=== PATIENT | female | born 1945 | race Caucasian/White ===

== ENCOUNTER 2020-07-02 13:21 | Outpatient (REF) | payer MEDICARE, SELFPAY ==
--- NOTE | 2020-07-02 13:28 | MM_ITS ---
EXAMINATION: BONE DENSITOMETRY CLINICAL INDICATION: Asymptomatic menopausal state. COMPARISON: Previous BD dated 02/02/2018 and baseline BD dated 11/24/2006. TECHNIQUE: Using a [employer] DXA System (software version: 13.1) manufactured by [employer], dual-energy x-ray absorptiometry was performed of the lumbar spine and left hip. The images are of good technical quality. Summary results are attached. FINDINGS: AP SPINE L1-L4: There is dextrocurvature lumbar spine and degenerative changes which may cause overestimation of the lumbar bone mineral density. Current: BMD 1.536 g/cm2, Z-score 4.9, T-score 3.0, normal, 2.0% decrease from previous, 13.3% increase from baseline (<5% change is not significant). Prior: BMD 1.568 g/cm2. Baseline: BMD 1.356 g/cm2. LEFT FEMUR, NECK: Current: BMD 0.751 g/cm2, Z-score -0.1, T-score -2.1, osteopenia. Prior: BMD 0.772 g/cm2. Baseline: BMD 0.852 g/cm2. LEFT FEMUR, TOTAL: Current: BMD 0.786 g/cm2, Z-score 0.0, T-score -1.8, osteopenia, 4.3% decrease from previous, 14.1% decrease from baseline (<5% change is not significant). Prior: BMD 0.821 g/cm2. Baseline: BMD 0.915 g/cm2. IDENTIFIED RISK FACTORS: Menopause. HISTORY OF FRACTURE: None listed. MEDICATIONS: Vitamin D. MM/XR DEXA axial skeleton IMPRESSION: 1. DIAGNOSIS: Osteopenia based on the lowest T-score value of -2.1 in the femoral neck applying World Health Organization criteria. 2. 10-YEAR FRACTURE RISK PREDICTION, FRAX: Major osteoporotic fracture (clinical spine, forearm, hip or shoulder) 13.6%. Hip fracture 3.4%. 3. Treatment Recommendations: NOF guidelines recommend consideration for treatment in postmenopausal women and men age 50 and older presenting with the following: -A hip or vertebral (clinical or morphometric) fracture. -T-score less than or equal to -2.5 at the femoral neck or spine after appropriate evaluation to exclude secondary causes. -Low bone mass at the hip or spine and a 10-year fracture probability by FRAX of greater than or equal to 3% for hip fracture or greater than or equal to 20% for major osteoporotic fracture based on the [place] adapted WHO algorithm. 4. Other Recommendations: All treatment decisions require clinical judgment and consideration of individual patient factors, including patient preferences, comorbidities, previous drug use, risk factors not captured in the FRAX model (e.g. frailty, falls, vitamin D deficiency, increased bone turnover, interval significant decline in bone density) and possible under or overestimation of fracture risk by FRAX. Additional medical evaluation for secondary cause of low bone mineral density may be appropriate. FUTURE SCAN RECOMMENDATION: People with diagnosed cases of osteoporosis or at high risk for fracture should have regular bone mineral density tests. For patients eligible for Medicare, routine testing is allowed once every 2 years. The testing frequency can be increased to one year for patients who have rapidly progressing disease, those who are receiving or discontinuing medical therapy to restore bone mass, or have additional risk factors.
--- NOTE | 2020-07-02 13:28 | MM_ITS ---
EXAMINATION: MM SCREENING DIGITAL BREAST TOMOSYNTHESIS, BILATERAL CLINICAL INFORMATION: Screening. Asymptomatic. The lifetime risk of breast cancer based on the Tyrer-Cuzick Model is 2.5%. COMPARISON: Mammography: February 20, 2019 and studies dating back to August 15, 2012 TECHNIQUE: Digital breast tomosynthesis is performed in both the craniocaudal and mediolateral oblique views along with computer-aided detection (CAD). Synthesized 2D images are generated from the tomosynthesis. FINDINGS: There are scattered areas of fibroglandular density (ACR BI-RADS breast composition Category b). There are no significant masses, abnormal calcifications, or other abnormalities. MM/MM tomosynthesis screening BI IMPRESSION: There are no significant changes from prior study. ASSESSMENT: BI-RADS 1: Negative RECOMMENDATION: Routine annual mammography screening. This patient's information was entered into a reminder system with a target due date for their next mammogram.
== END 2020-07-02 13:22 | disposition home or self-care (01) ==
LOC: HO.MAMMO 13:21
PROVIDERS: PCP Internal Medicine; Visit Provider Internal Medicine
DX: Z13.820 Encounter for screening for osteoporosis (principal); Z78.0 Asymptomatic menopausal state; Z79.899 Other long term (current) drug therapy; Z12.31 Encounter for screening mammogram for malignant neoplasm of breast
CPT/HCPCS: 77063; 77067; 77080

== ENCOUNTER 2020-08-28 07:07 | Outpatient (REF) | payer MEDICARE, SELFPAY ==
[2020-08-28 11:22] LABS: Hematocrit 33.2 % (37-47); Hemoglobin 10.7 g/dl (12.0-16.0)
[2020-08-28 11:54] LABS: Alanine Aminotransferase 82 U/L (0-31); Albumin Level 4.3 g/dL (3.5-5.0); Alkaline Phosphatase 114 U/L (39-117); Anion Gap 15 (12-20); Aspartate Amino Transferase 77 U/L (5-31); Bilirubin Total 0.6 mg/dL (0.0-1.0); Blood Urea Nitrogen 17 mg/dL (9-16); Calcium 8.8 mg/dL (8.4-10.2); Carbon Dioxide 24 mmol/L (22-29); Chloride 100 mmol/L (96-108); Estimated Glomerular Filt Rate 53; Glucose Random 131 mg/dL (60-115); Potassium 4.2 mmol/l (3.3-5.1); Sodium 135 mmol/L (135-145); Total Protein 6.5 g/dL (6.5-8.0)
[2020-08-28 12:13] LABS: Vitamin B12 732 pg/mL (200-900)
== END 2020-08-28 07:08 | disposition home or self-care (01) ==
LOC: HO.HMGCLDS 07:07
PROVIDERS: PCP Internal Medicine; Visit Provider Internal Medicine
DX: E03.9 Hypothyroidism, unspecified (principal); E78.2 Mixed hyperlipidemia; I10 Essential (primary) hypertension; D64.9 Anemia, unspecified; E53.8 Deficiency of other specified B group vitamins; M16.11 Unilateral primary osteoarthritis, right hip
CPT/HCPCS: 36415; 80053; 82607; 85014; 85018

== ENCOUNTER 2020-09-09 10:43 | Outpatient (REF) | payer MEDICARE, SELFPAY ==
[2020-09-09 14:01] LABS: MANUAL DIFF FLAG NO
[2020-09-09 14:09] LABS: Basophils Percent Auto 0.4 % (0-2); Eosinophils Absolute Auto 0.1 X10*3/uL (0.0-0.4); Eosinophils Percent Auto 0.9 % (0-4); Hematocrit 28.2 % (37-47); Hemoglobin 9.2 g/dl (12.0-16.0); Imm Gran Abs Auto 0.09 X10*3/uL (0.00-0.03); Imm Gran Pct Auto 1.1 % (0.0-0.4); Lymphocytes Percent Auto 11.7 % (20-40); Mean Corpuscular HGB Conc 32.6 g/dl (31.0-35.0); Mean Corpuscular Hemoglobin 34.6 pg (27.0-33.0); Mean Platelet Volume 9.1 fL (9.4-12.3); Monocytes Absolute Auto 1.1 X10*3/uL (0.1-1.2); Neutrophils Percent Auto 72.9 % (45-73); Platelet Count 329 X10*3/uL (160-400); Red Blood Count 2.66 X10*6/uL (4.20-5.50); Red Cell Distribution Width 12.1 % (11.0-16.0); White Blood Count 8.2 X10*3/uL (4.8-10.8)
[2020-09-09 14:52] LABS: Anion Gap 14 (12-20); Blood Urea Nitrogen 25 mg/dL (9-16); Calcium 8.7 mg/dL (8.4-10.2); Carbon Dioxide 27 mmol/L (22-29); Chloride 98 mmol/L (96-108); Estimated Glomerular Filt Rate 52; Glucose Random 127 mg/dL (60-115); Sodium 134 mmol/L (135-145)
== END 2020-09-09 10:44 | disposition home or self-care (01) ==
LOC: HO.HMGCLNP 10:43
PROVIDERS: Visit Provider Internal Medicine
DX: E03.8 Other specified hypothyroidism (principal); E78.9 Disorder of lipoprotein metabolism, unspecified; D64.9 Anemia, unspecified; I10 Essential (primary) hypertension
CPT/HCPCS: 80048; 85025

== ENCOUNTER 2020-09-17 06:50 | Outpatient (REF) | payer MEDICARE, SELFPAY ==
[2020-09-17 11:12] LABS: MANUAL DIFF FLAG NO
[2020-09-17 11:16] LABS: Basophils Absolute Auto 0.1 X10*3/uL (0.0-0.2); Basophils Percent Auto 0.5 % (0-2); Eosinophils Absolute Auto 0.3 X10*3/uL (0.0-0.4); Hematocrit 29.8 % (37-47); Hemoglobin 9.7 g/dl (12.0-16.0); Imm Gran Pct Auto 1.1 % (0.0-0.4); Lymphocytes Absolute Auto 1.1 X10*3/uL (1.2-4.9); Lymphocytes Percent Auto 11.5 % (20-40); Mean Corpuscular HGB Conc 32.6 g/dl (31.0-35.0); Mean Corpuscular Hemoglobin 34.3 pg (27.0-33.0); Mean Corpuscular Volume 105.3 fL (80-98); Mean Platelet Volume 8.7 fL (9.4-12.3); Monocytes Absolute Auto 0.6 X10*3/uL (0.1-1.2); Monocytes Percent Auto 6.1 % (2-11); Neutrophils Absolute Auto 7.3 X10*3/uL (2.0-8.3); Neutrophils Percent Auto 77.8 % (45-73); Platelet Count 528 X10*3/uL (160-400); Red Blood Count 2.83 X10*6/uL (4.20-5.50); Red Cell Distribution Width 12.8 % (11.0-16.0); White Blood Count 9.4 X10*3/uL (4.8-10.8)
[2020-09-17 11:41] LABS: Anion Gap 15 (12-20); Blood Urea Nitrogen 12 mg/dL (9-16); Calcium 9.5 mg/dL (8.4-10.2); Carbon Dioxide 28 mmol/L (22-29); Chloride 97 mmol/L (96-108); Estimated Glomerular Filt Rate > 60; Glucose Random 87 mg/dL (60-115); Potassium 4.9 mmol/l (3.3-5.1); Sodium 135 mmol/L (135-145)
== END 2020-09-17 06:51 | disposition home or self-care (01) ==
LOC: HO.LHD 06:50
PROVIDERS: Visit Provider Internal Medicine
DX: E03.8 Other specified hypothyroidism (principal); E78.9 Disorder of lipoprotein metabolism, unspecified; D64.9 Anemia, unspecified; I10 Essential (primary) hypertension
CPT/HCPCS: 36415; 80048; 85025

== ENCOUNTER 2020-10-22 10:00 | Outpatient (RCR) | payer MEDICARE, SELFPAY | END 2020-10-22 12:24 | disposition other institution (70) | LOC: HO.PTCHIC 10:00 | PROVIDERS: PCP Internal Medicine; Visit Provider Orthopaedic Surgery | DX: Z98.890 Other specified postprocedural states (principal) | CPT/HCPCS: 97110; 97112; 97162; 97530 ==

== ENCOUNTER 2020-12-16 09:11 | Outpatient (REF) | payer MEDICARE, SELFPAY ==
[2020-12-16 11:17] LABS: MANUAL DIFF FLAG NO
[2020-12-16 11:42] LABS: Basophils Percent Auto 0.3 % (0-2); Eosinophils Absolute Auto 0.4 X10*3/uL (0.0-0.4); Eosinophils Percent Auto 5.8 % (0-4); Hematocrit 36.1 % (37-47); Hemoglobin 12.1 g/dl (12.0-16.0); Imm Gran Abs Auto 0.02 X10*3/uL (0.00-0.03); Imm Gran Pct Auto 0.3 % (0.0-0.4); Lymphocytes Percent Auto 13.1 % (20-40); Mean Corpuscular HGB Conc 33.5 g/dl (31.0-35.0); Mean Corpuscular Hemoglobin 33.2 pg (27.0-33.0); Mean Corpuscular Volume 98.9 fL (80-98); Mean Platelet Volume 9.1 fL (9.4-12.3); Monocytes Absolute Auto 0.8 X10*3/uL (0.1-1.2); Monocytes Percent Auto 10.4 % (2-11); Neutrophils Absolute Auto 5.4 X10*3/uL (2.0-8.3); Neutrophils Percent Auto 70.1 % (45-73); Platelet Count 304 X10*3/uL (160-400); Red Blood Count 3.65 X10*6/uL (4.20-5.50); Red Cell Distribution Width 13.2 % (11.0-16.0); White Blood Count 7.6 X10*3/uL (4.8-10.8)
== END 2020-12-16 09:12 | disposition home or self-care (01) ==
LOC: HO.HMGCLDS 09:11
PROVIDERS: PCP Internal Medicine; Visit Provider Internal Medicine
DX: D64.9 Anemia, unspecified (principal)
CPT/HCPCS: 36415; 85025

== ENCOUNTER 2021-05-29 06:03 | Outpatient (REF) | payer MEDICARE, SELFPAY ==
[2021-05-29 13:07] LABS: Alanine Aminotransferase 22 U/L (0-31); Albumin Level 4.2 g/dL (3.5-5.0); Alkaline Phosphatase 73 U/L (39-117); Anion Gap 13 (12-20); Aspartate Amino Transferase 27 U/L (5-31); Bilirubin Total 0.7 mg/dL (0.0-1.0); Blood Urea Nitrogen 17 mg/dL (9-16); Calcium 9.7 mg/dL (8.4-10.2); Carbon Dioxide 26 mmol/L (22-29); Chloride 102 mmol/L (96-108); Cholesterol 165 mg/dL; Estimated Glomerular Filt Rate 51; Glucose Fasting 94 mg/dL (60-99); HDL Cholesterol 74 mg/dL; LDL Cholesterol Calculated 73 mg/dl; Potassium 4.9 mmol/L (3.3-5.1); Sodium 136 mmol/L (135-145); Total Protein 6.4 g/dL (6.5-8.0); Triglycerides 94 mg/dL
[2021-05-29 13:09] LABS: TSH reflex Free T4 2.02 uIU/mL (0.32-4.0)
[2021-05-29 13:26] LABS: Vitamin B12 271 pg/mL (200-900)
[2021-06-04 15:01] LABS: Vitamin D 25-OH, D2 <4 ng/mL; Vitamin D 25-OH, D3 65 ng/mL; Vitamin D 25-OH, Total 65 ng/mL (30-100)
== END 2021-05-29 06:04 | disposition home or self-care (01) ==
LOC: HO.HMGCLDS 06:03
PROVIDERS: PCP Internal Medicine; Visit Provider Internal Medicine
DX: Z00.01 Encounter for general adult medical examination with abnormal findings (principal); R26.89 Other abnormalities of gait and mobility; I10 Essential (primary) hypertension; R73.01 Impaired fasting glucose; E78.9 Disorder of lipoprotein metabolism, unspecified; E55.9 Vitamin D deficiency, unspecified; M85.88 Other specified disorders of bone density and structure, other site; E53.8 Deficiency of other specified B group vitamins
CPT/HCPCS: 36415; 80053; 80061; 82306; 82607; 84443

== ENCOUNTER 2021-07-14 09:01 | Outpatient (REF) | payer MEDICARE, SELFPAY ==
--- NOTE | ~2021-07-14 | MM_ITS ---
EXAMINATION: MM SCREENING DIGITAL BREAST TOMOSYNTHESIS, BILATERAL CLINICAL INFORMATION: Screening. Asymptomatic. The lifetime risk of breast cancer based on the Tyrer-Cuzick Model is 3%. COMPARISON: Mammography: 07/02/2020, 02/20/2019, 02/02/2018 TECHNIQUE: Digital breast tomosynthesis is performed in both the craniocaudal and mediolateral oblique views along with computer-aided detection (CAD). Synthesized 2D images are generated from the tomosynthesis. FINDINGS: There are scattered areas of fibroglandular density (ACR BI-RADS breast composition Category b). There are no significant masses, abnormal calcifications, or other abnormalities. There are several dermal lesions overlying the outer left breast. Parenchymal pattern is similar to prior studies. No significant changes. MM/MM tomosynthesis screening BI IMPRESSION: No mammographic evidence of malignancy. ASSESSMENT: BI-RADS 2: Benign RECOMMENDATION: Routine annual mammography screening. This patient's information was entered into a reminder system with a target due date for their next mammogram.
== END 2021-07-14 09:02 | disposition home or self-care (01) ==
LOC: HO.MAMMO 09:01
PROVIDERS: Visit Provider Internal Medicine
DX: Z12.31 Encounter for screening mammogram for malignant neoplasm of breast (principal)
CPT/HCPCS: 77063; 77067

== ENCOUNTER 2021-09-02 06:10 | Outpatient (REF) | payer MEDICARE, SELFPAY ==
[2021-09-02 12:00] LABS: Alanine Aminotransferase 30 U/L (0-31); Albumin Level 4.5 g/dL (3.5-5.0); Alkaline Phosphatase 68 U/L (39-117); Anion Gap 15 (12-20); Aspartate Amino Transferase 42 U/L (5-31); Bilirubin Total 0.8 mg/dL (0.0-1.0); Blood Urea Nitrogen 17 mg/dL (9-16); Carbon Dioxide 25 mmol/L (22-29); Chloride 98 mmol/L (96-108); Estimated Glomerular Filt Rate 49; Glucose Random 92 mg/dL (60-115); Potassium 4.7 mmol/L (3.3-5.1); Sodium 133 mmol/L (135-145); Total Protein 6.9 g/dL (6.5-8.0)
== END 2021-09-02 06:11 | disposition home or self-care (01) ==
LOC: HO.HMGCLDS 06:10
PROVIDERS: PCP Internal Medicine; Visit Provider Internal Medicine
DX: E03.8 Other specified hypothyroidism (principal); E78.9 Disorder of lipoprotein metabolism, unspecified; I10 Essential (primary) hypertension; N28.9 Disorder of kidney and ureter, unspecified
CPT/HCPCS: 36415; 80053

== ENCOUNTER 2021-10-14 08:00 | Outpatient (RCR) | payer MEDICARE, SELFPAY ==
--- NOTE | 2021-09-14 15:13 | MHC.PT.EP ---
[facility] [place] Office [place] Office [place] Office [address] Peyman Stephens [address] [phone] F: [phone] F: [phone] F: [phone] F: [phone] Physical Therapy Plan of Care Date of Evaluation: Date of Surgery: Diagnosis: This is a 76 yo female presenting to skilled PT with a script for balance and leg weakness. Assessment: This is a 76 yo female presenting to skilled PT with a script for balance and leg weakness. Patient comes in today reporting lack of strength and limitations in balance. She has had PT in the past for hip pain and this was helpful. She lives in a one floor condo without stairs but feels like she has a hard time when she encounters stairs or curbs with and without hand rail assist. She has not been back to the gym due to covid but rides her stationary bike and recently looked up leg strengthening exercises as well as core strengthening. No recent falls. No AD but has a cane as needed. Assessment reveals pain that ranges up to a 1/10 at the worst and patient is more interested in strengthening and balance. She demos decreased hip and lumbar ROM (mainly flexors and extension), decreased glut and hip strength, impaired gait pattern with WBOS, lateral sway, Trendelenburg pattern and decreased heel strike, impaired balance tolerance with DGI and Revloc scores making her a falls risk as well as gross functional decline with walking, stairs and squatting. She is a good candidate for skilled PT 2x/wk for 5wks. She is very motivated and demos good I with HEP in the past. Frequency and Duration: The patient will be seen 2x/wk for 5wks Short Term Goals: I in HEP and proper safety techniques at home Demo proper squatting techniques without cues from PT or LOB as well as proper weight distribution Snf Goals: Improve balance scores by at least 20/24, no longer a falls risk category Improve hip/glut strength to at least 4/5 grossly Demo stairs with reciprocal gait and use of single UE assist Treatment Plan: Modalities to reduce pain, spasms and effusion. Manual therapy to restore motion and function. Therapeutic exercise to improve strength and flexibility. Neuromuscular re-education for posture and balance. Therapeutic activities to return to functional activities of daily living. Electronically signed by: Brittany Romero PT Please sign and return to therapist. Thank you for your referral.
--- NOTE | 2021-10-14 08:45 | MHC.PT.DC ---
[facility] [place] Office [place] Office [place] Office [address] Peyman Stephens [address] [phone] F: [phone] F: [phone] F: [phone] F: [phone] Physical Therapy Discharge Report Diagnosis: This is a 76 yo female presenting to skilled PT with a script for balance and leg weakness. Date of Surgery: Date of Evaluation: 09/14/21 Date of Discharge: 10/14/21 Treatments to Date: 9 Cancellations to Date: 0 No Shows to Date: 0 Discharge Status: Achieved Goals Improved Function Independent with HEP Discharge Summary: Mary Lou is feeling ready for DC. She has a thorough HEP to continue on her own. She also reports that she will be doing chair exercises at home and make more of an effort to walk when the weather improves. The patient demos WFL ROM and improving BLE strength. She no longer required rest breaks, increased weighted ther-ex and demo's an improvement in general endurance. Electronically signed by: Brittany Romero PT Please sign and return to therapist. Thank you for your referral.
== END 2021-10-14 08:46 | disposition home or self-care (01) ==
LOC: HO.PTCHIC 08:00
PROVIDERS: PCP Internal Medicine; Visit Provider Internal Medicine
DX: R29.898 Other symptoms and signs involving the musculoskeletal system (principal)
CPT/HCPCS: 97110; 97112; 97162

== ENCOUNTER 2022-03-02 11:25 | Outpatient (REF) | payer MEDICARE, SELFPAY ==
[2022-03-02 13:56] LABS: MANUAL DIFF FLAG NO
[2022-03-02 14:23] LABS: Basophils Percent Auto 0.4 % (0-2); Eosinophils Absolute Auto 0.1 X10*3/uL (0.0-0.4); Eosinophils Percent Auto 1.1 % (0-4); Hematocrit 33.1 % (37.0-47.0); Imm Gran Abs Auto 0.05 X10*3/uL (0.00-0.03); Lymphocytes Percent Auto 18.4 % (20-40); Mean Corpuscular HGB Conc 33.2 g/dl (31.0-35.0); Mean Corpuscular Hemoglobin 33.1 pg (27.0-33.0); Mean Corpuscular Volume 99.7 fL (80.0-98.0); Mean Platelet Volume 9.3 fL (9.4-12.3); Monocytes Absolute Auto 0.7 X10*3/uL (0.1-1.2); Neutrophils Absolute Auto 3.5 x10*3/uL (2.0-8.3); Neutrophils Percent Auto 66.1 % (45-73); Platelet Count 290 X10*3/uL (160-400); Red Blood Count 3.32 X10*6/uL (4.20-5.50); Red Cell Distribution Width 12.2 % (11.0-16.0); White Blood Count 5.2 X10*3/uL (4.8-10.8)
[2022-03-02 14:31] LABS: Alanine Aminotransferase 18 U/L (0-31); Albumin Level 4.5 g/dL (3.5-5.0); Alkaline Phosphatase 76 U/L (39-117); Anion Gap 13 (12-20); Aspartate Amino Transferase 31 U/L (5-31); Bilirubin Total 0.5 mg/dL (0.0-1.0); Blood Urea Nitrogen 20 mg/dL (9-16); Calcium 9.2 mg/dL (8.4-10.2); Carbon Dioxide 25 mmol/L (22-29); Chloride 97 mmol/L (96-108); Estimated Glomerular Filt Rate 48; Glucose Random 118 mg/dL (60-115); Potassium 4.1 mmol/L (3.3-5.1); Sodium 131 mmol/L (135-145); Total Protein 6.8 g/dL (6.5-8.0)
[2022-03-02 14:55] LABS: TSH reflex Free T4 1.31 uIU/mL (0.32-4.0)
[2022-03-02 15:18] LABS: Vitamin B12 < 146 pg/mL (200-900)
[2022-03-03 21:47] LABS: LDL Cholesterol Direct 98 mg/dL (<100)
[2022-03-07 14:13] LABS: Vitamin D 25-OH, D2 <4 ng/mL; Vitamin D 25-OH, D3 55 ng/mL; Vitamin D 25-OH, Total 55 ng/mL (30-100)
== END 2022-03-02 11:26 | disposition home or self-care (01) ==
LOC: HO.HMGCLDS 11:25
PROVIDERS: PCP Internal Medicine; Visit Provider Internal Medicine
DX: E03.8 Other specified hypothyroidism (principal); E53.8 Deficiency of other specified B group vitamins; E55.9 Vitamin D deficiency, unspecified; E78.9 Disorder of lipoprotein metabolism, unspecified; I10 Essential (primary) hypertension; N28.9 Disorder of kidney and ureter, unspecified; R29.898 Other symptoms and signs involving the musculoskeletal system
CPT/HCPCS: 36415; 80053; 82306; 82607; 83721; 84443; 85025

== ENCOUNTER 2022-07-16 08:44 | Outpatient (REF) | payer MEDICARE, SELFPAY ==
--- NOTE | ~2022-07-16 | MM_ITS ---
EXAMINATION: MM SCREENING DIGITAL BREAST TOMOSYNTHESIS, BILATERAL CLINICAL INFORMATION: Screening. Asymptomatic. The lifetime risk of breast cancer based on the Tyrer-Cuzick Model is 2%. COMPARISON: Mammography: 07/14/2021, 07/02/2020, 02/20/2019 TECHNIQUE: Digital breast tomosynthesis is performed in both the craniocaudal and mediolateral oblique views along with computer-aided detection (CAD). Synthesized 2D images are generated from the tomosynthesis. FINDINGS: There are scattered areas of fibroglandular density (ACR BI-RADS breast composition Category b). There are no significant masses, abnormal calcifications, or other abnormalities. No significant changes in the parenchymal pattern. Several dermal lesions are again noted overlying outer left breast and there are scattered bilateral vascular calcifications again seen. MM/MM tomosynthesis screening BI IMPRESSION: No mammographic evidence of malignancy. ASSESSMENT: BI-RADS 2: Benign RECOMMENDATION: Routine annual mammography screening. This patient's information was entered into a reminder system with a target due date for their next mammogram.
== END 2022-07-16 08:45 | disposition home or self-care (01) ==
LOC: HO.MAMMO 08:44
PROVIDERS: PCP Internal Medicine; Visit Provider Internal Medicine
DX: Z12.31 Encounter for screening mammogram for malignant neoplasm of breast (principal)
CPT/HCPCS: 77063; 77067

== ENCOUNTER 2022-08-14 06:40 | Outpatient (REF) | payer MEDICARE, SELFPAY ==
[2022-08-14 10:58] LABS: MANUAL DIFF FLAG NO
[2022-08-14 11:06] LABS: Basophils Percent Auto 0.5 % (0-2); Eosinophils Absolute Auto 0.1 X10*3/uL (0.0-0.4); Eosinophils Percent Auto 1.8 % (0-4); Hematocrit 35.5 % (37.0-47.0); Hemoglobin 11.9 g/dl (12.0-16.0); Imm Gran Abs Auto 0.04 X10*3/uL (0.00-0.03); Imm Gran Pct Auto 0.7 % (0.0-0.4); Lymphocytes Absolute Auto 1.6 X10*3/uL (1.2-4.9); Lymphocytes Percent Auto 26.5 % (20-40); Mean Corpuscular HGB Conc 33.5 g/dl (31.0-35.0); Mean Corpuscular Hemoglobin 33.7 pg (27.0-33.0); Mean Corpuscular Volume 100.6 fL (80.0-98.0); Mean Platelet Volume 9.4 fL (9.4-12.3); Monocytes Absolute Auto 0.7 X10*3/uL (0.1-1.2); Monocytes Percent Auto 12.1 % (2-11); Neutrophils Absolute Auto 3.5 x10*3/uL (2.0-8.3); Neutrophils Percent Auto 58.4 % (45-73); Platelet Count 303 X10*3/uL (160-400); Red Blood Count 3.53 X10*6/uL (4.20-5.50); Red Cell Distribution Width 12.5 % (11.0-16.0)
[2022-08-14 11:19] LABS: Estimated Average Glucose 97 mg/dL
[2022-08-14 11:41] LABS: Alanine Aminotransferase 18 U/L (0-31); Albumin Level 4.2 g/dL (3.5-5.0); Alkaline Phosphatase 79 U/L (39-117); Anion Gap 16 (12-20); Aspartate Amino Transferase 26 U/L (5-31); Bilirubin Total 0.9 mg/dL (0.0-1.0); Blood Urea Nitrogen 17 mg/dL (9-16); Calcium 9.7 mg/dL (8.4-10.2); Carbon Dioxide 23 mmol/L (22-29); Chloride 98 mmol/L (96-108); Cholesterol 210 mg/dL; Estimated Glomerular Filt Rate 44; Glucose Fasting 101 mg/dL (60-99); HDL Cholesterol 85 mg/dL; LDL Cholesterol Calculated 107 mg/dl; Potassium 4.8 mmol/L (3.3-5.1); Sodium 132 mmol/L (135-145); TSH reflex Free T4 0.36 uIU/mL (0.32-4.0); Total Protein 6.7 g/dL (6.5-8.0); Triglycerides 91 mg/dL
[2022-08-14 11:48] LABS: Vitamin B12 1261 pg/mL (200-900)
[2022-08-19 12:33] LABS: Vitamin D 25-OH, D2 <4 ng/mL; Vitamin D 25-OH, D3 36 ng/mL; Vitamin D 25-OH, Total 36 ng/mL (30-100)
== END 2022-08-14 06:41 | disposition home or self-care (01) ==
LOC: HO.HMGCLDS 06:40
PROVIDERS: PCP Internal Medicine; Visit Provider Internal Medicine
DX: D53.9 Nutritional anemia, unspecified (principal); E03.8 Other specified hypothyroidism; E78.9 Disorder of lipoprotein metabolism, unspecified; I10 Essential (primary) hypertension; R73.01 Impaired fasting glucose; E53.8 Deficiency of other specified B group vitamins; E55.9 Vitamin D deficiency, unspecified
CPT/HCPCS: 36415; 80053; 80061; 82306; 82607; 83036; 84443; 85025

== ENCOUNTER 2022-12-03 09:53 | Outpatient (REF) | payer MEDICARE, SELFPAY ==
--- NOTE | ~2022-12-03 | XR_ITS ---
EXAMINATION: XR KNEE, RIGHT CLINICAL INFORMATION: Pain. COMPARISON: Radiographs dated 04/24/2013. TECHNIQUE: AP and lateral views of the right knee. FINDINGS: There is mild bony demineralization. The lateral and medial joint space compartments are well-maintained. The patellofemoral compartment is well-maintained and shows tiny upper and lower articular surface osteophytes. No fracture, dislocation or joint effusion is seen. No foreign body is noted. XR/XR knee RT 2V IMPRESSION: There is slight osteoarthritic change of the right patellofemoral compartment. No fracture, dislocation or joint effusion is seen.
--- NOTE | ~2022-12-03 | XR_ITS ---
EXAMINATION: XR SHOULDER, LEFT CLINICAL INFORMATION: Pain. COMPARISON: None available. TECHNIQUE: AP external rotation, Grashey, scapular Y, and axillary views of the left shoulder. FINDINGS: Bony alignment and mineralization are normal. The glenohumeral joint is intact and shows mild peripheral osteophyte formation. The acromioclavicular and coracoclavicular intervals are normal. No fracture or dislocation is seen. There is a small distal acromial undersurface osteophyte. There is slight cortical irregularity of the greater tuberosity of the proximal left humerus. There is mild left axillary soft tissue calcification, possibly myositis ossificans. No foreign body is noted. There is no left pneumothorax. XR/XR shoulder LT min 2V IMPRESSION: 1. There is mild osteoarthritic change of the left glenohumeral joint. 2. Findings suggest possible mild left rotator cuff impingement.
[2022-12-03 11:59] LABS: Hematocrit 32.9 % (37.0-47.0)
[2022-12-03 12:04] LABS: Estimated Average Glucose 103 mg/dL; Hemoglobin A1c % 5.2 %
[2022-12-03 12:23] LABS: Alanine Aminotransferase 17 U/L (0-31); Albumin Level 4.1 g/dL (3.5-5.0); Alkaline Phosphatase 84 U/L (39-117); Anion Gap 15 (12-20); Aspartate Amino Transferase 29 U/L (5-31); Bilirubin Total 0.6 mg/dL (0.0-1.0); Blood Urea Nitrogen 16 mg/dL (9-16); Calcium 9.5 mg/dL (8.4-10.2); Carbon Dioxide 24 mmol/L (22-29); Chloride 97 mmol/L (96-108); Estimated Glomerular Filt Rate 42; Glucose Random 108 mg/dL (60-115); Potassium 5.6 mmol/L (3.3-5.1); Sodium 130 mmol/L (135-145); Total Protein 6.5 g/dL (6.5-8.0)
[2022-12-03 12:48] LABS: TSH reflex Free T4 0.24 uIU/mL (0.32-4.0); Vitamin B12 1726 pg/mL (200-900)
[2022-12-03 13:59] LABS: Free T4 (Free Thyroxine) 1.25 ng/dL (0.71-1.85)
[2022-12-04 17:13] LABS: LDL Cholesterol Direct 59 mg/dL (<100)
== END 2022-12-03 09:54 | disposition home or self-care (01) ==
LOC: HO.HMGCLDS 09:53
PROVIDERS: PCP Internal Medicine; Visit Provider Internal Medicine
DX: E03.8 Other specified hypothyroidism (principal); E53.8 Deficiency of other specified B group vitamins; E78.9 Disorder of lipoprotein metabolism, unspecified; I10 Essential (primary) hypertension; N28.9 Disorder of kidney and ureter, unspecified; D64.9 Anemia, unspecified; R73.01 Impaired fasting glucose; M25.512 Pain in left shoulder; M25.562 Pain in left knee
CPT/HCPCS: 36415; 73030; 73560; 80053; 82607; 83036; 83721; 84439; 84443; 85014; 85018

== ENCOUNTER 2022-12-06 07:07 | Outpatient (REF) | payer MEDICARE, SELFPAY ==
[2022-12-06 11:34] LABS: Anion Gap 15 (12-20); Blood Urea Nitrogen 14 mg/dL (9-16); Calcium 8.7 mg/dL (8.4-10.2); Carbon Dioxide 25 mmol/L (22-29); Chloride 99 mmol/L (96-108); Estimated Glomerular Filt Rate 51; Glucose Random 83 mg/dL (60-115); Potassium 3.8 mmol/L (3.3-5.1); Sodium 135 mmol/L (135-145)
== END 2022-12-06 07:08 | disposition home or self-care (01) ==
LOC: HO.HMGCLDS 07:07
PROVIDERS: PCP Internal Medicine; Visit Provider Internal Medicine
DX: E87.5 Hyperkalemia (principal)
CPT/HCPCS: 36415; 80048

== ENCOUNTER → 2023-01-31 13:58 | Outpatient (BNVA) | payer MEDICARE, SELFPAY | PROVIDERS: PCP Internal Medicine; Visit Provider Physician Assistant | DX: M75.102 Unspecified rotator cuff tear or rupture of left shoulder, not specified as traumatic (principal) | CPT/HCPCS: 99202; J1040 ==

== ENCOUNTER 2023-01-31 14:50 | Emergency (ER) | payer MEDICARE, SELFPAY ==
--- NOTE | ~2023-01-31 | CT_ITS ---
EXAMINATION: CT HEAD WITHOUT CONTRAST CT CERVICAL SPINE WITHOUT CONTRAST CLINICAL INFORMATION: Head strike. Syncope. Fall. COMPARISON: CT head 02/11/2014 TECHNIQUE: Imaging was performed from the skull base to vertex without intravenous administration of contrast. In addition, helical noncontrast CT imaging was acquired through the cervical spine and source images were reviewed along with axial reconstructions and sagittal and coronal MPRs. [This CT examination was performed using dose optimization techniques as appropriate, variously including the following: *Automated exposure control *Adjustment of mA and/or kV according to patient size (this includes techniques or standardized protocols for targeted exams where dose is matched to indication/reason for exam; i.e. extremities or head) *Use of iterative reconstruction technique] DLP: 988 mGy-cm FINDINGS: HEAD: No intracranial mass, hemorrhage, or midline shift is visualized. There is generalized global volume loss. There is moderate prominence of the ventricles and the sulci . There is mild hypodensity of the periventricular white matter due to chronic small vessel ischemic disease. There are vascular calcifications of the internal carotid arteries bilaterally. No extra-axial collections are identified. The paranasal sinuses and mastoid air cells are well aerated. CERVICAL SPINE: There is no evidence of acute cervical spine fracture. Vertebral bodies remain normal in height. There is multilevel degenerative spondylosis of the cervical spine with disc height narrowing and endplate spurs and facet joint arthrosis. There is a anterolisthesis measuring about 3 mm C3 on C4 and 2 mm at C4 on C5. This is due to marked degenerative change of the facet joint. There is fusion of the C4-C5 facet joints bilateral. Severe disc height narrowing at C5-C6 and C6-C7 with moderate facet joint arthrosis at these disc levels. Vascular calcification of the carotid arteries bilaterally. Limited assessment of the lung apices is unremarkable. CT/CT cervical spine wo IV con IMPRESSION: 1. No acute intracranial pathology. 2. No CT evidence of acute cervical spine fracture or traumatic subluxation
[2023-01-31 15:42] VITALS: BP 190/91; PULSE 85; RESP 18; TEMP 35.6; O2SAT 100; BMI 24.9
--- NOTE | 2023-01-31 15:46 | ED.FALL ---
HPI - Fall General Chief Complaint: Fall Stated Complaint: fell lac over eye r knee inj mouth inj Time Seen by Provider: 01/31/23 15:40 Source: patient Mode of arrival: wheelchair Limitations: no limitations History of Present Illness HPI Narrative: 77 yo female with history of HTN, HLD, hypothyroidism here after fall. Per patient she was at the orthopedic office getting a cortisone injection in her shoulder. She was walking out when she fell forward with +LOC. Patient believes she lost consciousness before she hit her head but she denies any pre fall symptoms of dizziness, headache, chest pain, palpitations. She now has a mild headache and abrasions to her right knee, lacerations to forehead and upper lip. Tetanus is UTD. Related Data Home Medications Medication Instructions Recorded Confirmed aspirin 81 mg tablet,delayed 81 mg PO DAILY 09/12/20 12/03/22 release (Adult Aspirin Regimen) omega-3 fatty acids 1,000 mg 1,000 mg PO DAILY 09/12/20 12/03/22 capsule (Fish Oil Concentrate) calcium 600 mg capsule 1,200 mg PO DAILY 10/20/20 12/03/22 ascorbic acid (vitamin C) 500 mg 500 mg PO DAILY 11/18/20 12/03/22 tablet flaxseed oil 1,000 mg capsule 1,000 mg PO DAILY 11/18/20 12/03/22 Previous Rx's Medication Instructions Recorded levothyroxine 88 mcg tablet 88 mcg PO QAM #90 tabs 12/03/22 sodium polystyrene sulfonate 15 15 g (60 mL) PO DAILY 3 days #180 12/03/22 gram/60 mL oral suspension mL atenolol 25 mg tablet 25 mg PO DAILY 90 days #90 tabs 01/21/23 losartan 100 1 tab PO DAILY #90 tabs 01/31/23 mg-hydrochlorothiazide 25 mg tablet simvastatin 20 mg tablet 20 mg PO QPM 90 days #90 tabs 01/31/23 Allergies Allergy/AdvReac Type Severity Reaction Status Date / Time No Known Allergies Allergy Verified 01/31/23 14:10 Review of Systems Review of Systems: Yes all other systems are reviewed and are negative Constitutional: Constitutional: Reports no additional constitutional complaints, Denies body ache(s), Denies chills, Denies fever(s), Reports headache(s) and Denies weakness Eyes: Eyes: Reports no additional eye complaints and Denies change in vision ENT: Reports system reviewed and no additional complaints, except as documented, Denies dizziness, Reports headache(s), Denies nasal congestion, Denies nasal discharge and Denies neck pain Cardiovascular: Cardiovascular: Reports no additional cardiovascular complaints, Denies chest pain, Denies leg edema and Denies dyspnea Respiratory: Respiratory: Reports no additional respiratory complaints, Denies cough and Denies dyspnea Gastrointestinal: Gastrointestinal: Reports no additional gastrointestinal complaints, Denies abdominal pain, Denies diarrhea, Denies nausea and Denies vomiting Genitourinary: Genitourinary: Reports no additional female genitourinary complaints and Denies urinary incontinence Musculoskeletal: Musculoskeletal: Reports no additional musculoskeletal complaints, Denies back pain, Denies arthralgias, Denies joint swelling, Denies neck pain, Denies numbness and Denies tingling Integumentary/Breasts: Skin/Breast: Reports system reviewed and no additional complaints, except as docu, Denies rash and Reports wounds Neurologic: Reports system reviewed and no additional complaints, except as documented, Denies Abnormal speech present, Denies dizziness, Reports headache(s), Denies numbness, Denies tingling and Denies weakness PMFSH Past Medical History Attestation statement: The following information was validated with the patient. Source: old records reviewed and nursing notes reviewed Medical History HTN (hypertension) Hypothyroid Surgical History History of right hip replacement Hx of carpal tunnel repair Hx of cholecystectomy Hx of endarterectomy Hx of tonsillectomy Hx of tubal ligation Family History Family History Family/Other Melanoma Brother Prostate cancer Maternal Grandmother Diabetes CHF (congestive heart failure) Mother CHF (congestive heart failure) Family/Other Ulcerative colitis Social History Social History [facility] Alcohol intake: current Alcohol intake frequency: holidays/special occasions only Alcohol type: wine Patient Tobacco Use Status: Never used Tobacco Smoked in Last 30 Days: No e-Cigarette/Vaping Use: Never Used Second Hand Smoke Exposure: No Advance Directives: No Advance Directives Information Provided: Yes service: No Current occupational status: retired 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 3cm laceration Ears: hearing grossly normal bilaterally General nose exam: Normal external nose present Face and sinus: Yes normal facial exam Mouth: Normal oral and palatal mucosa present Mouth/tongue images: 1. under the lip there is a 1cm lac Throat: Yes posterior oropharynx normal Eyes: General: appearance normal, both eyes and all related structures Pupils: Equal, round and reactive pupils present Neck: Neck: Yes normal visual inspection, Yes full ROM, Yes no lymphadenopathy and Yes no meningeal signs Chest: Chest palpation & inspection: normal inspection of the chest Resp: Effort & Inspection: normal respiratory effort Auscultation: clear to auscultation bilaterally Cardio: Rate: regular rate Rhythm: regular rhythm Peripheral pulses: Peripheral pulses 2+ throughout GI: Inspection: Yes normal to inspection Palpation (GI): Soft to palpation and nontender Auscultation: normal bowel sounds Back/Spine/Pelvis: Thoracic/Lumbar Spine: thoracic and lumbar spine normal to inspection Skin: General skin exam: no rashes or lesions noted Neuro: General: patient oriented x3, moves all extremities, no meningeal signs, no focal motor deficits and normal sensation to monofilament Cranial nerves: Yes CN's II-XII intact bilaterally, Yes Equal, round and reactive pupils present, Yes Bilaterally intact EOM present, Yes Nystagmus not present, Yes Normal facial strength present and Yes Midline tongue present Cognition (Neuro): normal cognition Speech: No Abnormal speech present Gait exam (Neuro): Normal gait present Motor exam (neuro): 5/5 motor strength present throughout Sensory Exam: Normal double simultaneous stimulation for sensation Extrem: General: Yes normal to inspection Elbow/forearm/wrist images: 1. +abrasion with skin tear, FROM of the right knee with no difficulty Course Course Course Narrative: asymptomatic HTN Reevaluation(s) Reevaluation #1: 1900-sign out to betzaida tapia pending ct results Reevaluation #2: CT scan images negative for any fractures or brain bleed. Patient blood pressure over 220. Patient informed she will need to wait in the ED for blood pressure to be controlled probably received medications to make sure no stroke occurred. Patient states she did not take her meds and would like to be discharged. Patient educated on risk of stroke, heart attack, kidney injury or even and patient still wants to sign out against medical advice and would take her medications and follow her blood pressure. Procedures Laceration Laceration 1: Site: face Side (If applicable): left Size (cm): 3 Description: linear Depth: simple, single layer Local Anesthetic: lidocaine 1% Amount of anesthesia used (mL): 2 Pre-repair: wound explored and irrigated extensively Skin layer closed with: other (prolene) Size (cm): 6-0 Number of sutures: 3 Technique: simple, interrupted Medical Decision Making Medical Decision Making [facility] Narrative: 77 yo female here with facial laceration, lip laceration and abrasions to right knee s/p fall after receiving a cortisone injection. ?syncopal fall but patient is unsure of details. May be vasovagal d/t painful procedure prior to episode. Will obtain labs, EKG, orthostatics, Ct head/cervical spine Differential Diagnosis Differential Diagnoses: The differential diagnosis associated with the presentation includes Vasovagal syncope Low concern for ACS with normal EKG and troponin Low concern for PE with no hypoxia, no tachypnea, no tachycardia and no clinical findings concerning for DVT no headache to suggest subarachnoid hemorrhage Admission/Observation Consideration of admission/observation: Escalation of care including admission/observation considered most consistent with vasovagal syncope. [place] syncope risk score -1 Lab Data [facility] Lab Attestation statement: I reviewed the patient's lab results. 01/31/23 16:21 01/31/23 16:21 Labs: Lab Results 01/31/23 01/31/23 01/31/23 Range/Units 16:21 16:21 16:21 WBC 4.4 L (4.8-10.8) X10*3/uL RBC 3.37 L (4.20-5.50) X10*6/uL Hgb 11.4 L (12.0-16.0) g/dl Hct 33.6 L (37.0-47.0) % MCV 99.7 H (80.0-98.0) fL MCH 33.8 H (27.0-33.0) pg MCHC 33.9 (31.0-35.0) g/dl RDW 13.0 (11.0-16.0) % Plt Count 246 (160-400) X10*3/uL MPV 8.7 L (9.4-12.3) fL Immature Gran % (Auto) 0.5 H (0.0-0.4) % Neut % (Auto) 66.7 (45-73) % Lymph % (Auto) 22.8 (20-40) % Webb % (Auto) 8.2 (2-11) % Eos % (Auto) 1.1 (0-4) % Baso % (Auto) 0.7 (0-2) % Lymph # (Auto) 1.0 L (1.2-4.9) X10*3/uL Webb # (Auto) 0.4 (0.1-1.2) X10*3/uL Eos # (Auto) 0.1 (0.0-0.4) X10*3/uL Baso # (Auto) 0.0 (0.0-0.2) X10*3/uL Abs Immat Gran (auto) 0.02 (0.00-0.03) X10*3/uL Absolute Neuts (auto) 2.9 (2.0-8.3) x10*3/uL Absolute Nucleated RBC 0.000 (0.0-0.012) X10*3/uL Nucleated RBC % (auto) 0.0 (0.0-0.2) /100WBC Sodium 134 L (135-145) mmol/L Potassium 4.6 D (3.3-5.1) mmol/L Chloride 97 (96-108) mmol/L Carbon Dioxide 25 (22-29) mmol/L Anion Gap 17 (12-20) BUN 25 H (9-16) mg/dL Creatinine 1.25 (0.5-1.4) mg/dL Estim Creat Clear Calc 33.1 Estimated GFR 42 Random Glucose 102 (60-115) mg/dL Calcium 9.2 (8.4-10.2) mg/dL Magnesium 2.1 (1.6-2.6) mg/dL Total Bilirubin 0.6 (0.0-1.0) mg/dL Direct Bilirubin 0.2 (0.0-0.5) mg/dL AST 45 H (5-31) U/L ALT 23 (0-31) U/L Alkaline Phosphatase 96 (39-117) U/L Troponin I High Sens 6.6 (<3.5-17.0) ng/L Total Protein 7.4 (6.5-8.0) g/dL Albumin 4.5 (3.5-5.0) g/dL Urine Color Urine Appearance Urine pH (5.0-9.0) Ur Specific [place] (1.005-1.025) Urine Protein (Neg-Trace) mg/dL Urine Glucose (UA) (Negative) mg/dL Urine Ketones (Negative) mg/dL Urine Blood (Negative) Urine Nitrite (Negative) Ur Leukocyte Esterase (Negative) Urine RBC (0-2) /HPF Urine WBC (0-5) /HPF Ur Squamous Epith Cells (0-2) /HPF Calcium Oxalate Crystal Urine Bacteria (None Seen) Hyaline Casts (0-2) /LPF 01/31/23 Range/Units 16:36 WBC (4.8-10.8) X10*3/uL RBC (4.20-5.50) X10*6/uL Hgb (12.0-16.0) g/dl Hct (37.0-47.0) % MCV (80.0-98.0) fL MCH (27.0-33.0) pg MCHC (31.0-35.0) g/dl RDW (11.0-16.0) % Plt Count (160-400) X10*3/uL MPV (9.4-12.3) fL Immature Gran % (Auto) (0.0-0.4) % Neut % (Auto) (45-73) % Lymph % (Auto) (20-40) % Webb % (Auto) (2-11) % Eos % (Auto) (0-4) % Baso % (Auto) (0-2) % Lymph # (Auto) (1.2-4.9) X10*3/uL Webb # (Auto) (0.1-1.2) X10*3/uL Eos # (Auto) (0.0-0.4) X10*3/uL Baso # (Auto) (0.0-0.2) X10*3/uL Abs Immat Gran (auto) (0.00-0.03) X10*3/uL Absolute Neuts (auto) (2.0-8.3) x10*3/uL Absolute Nucleated RBC (0.0-0.012) X10*3/uL Nucleated RBC % (auto) (0.0-0.2) /100WBC Sodium (135-145) mmol/L Potassium (3.3-5.1) mmol/L Chloride (96-108) mmol/L Carbon Dioxide (22-29) mmol/L Anion Gap (12-20) BUN (9-16) mg/dL Creatinine (0.5-1.4) mg/dL Estim Creat Clear Calc Estimated GFR Random Glucose (60-115) mg/dL Calcium (8.4-10.2) mg/dL Magnesium (1.6-2.6) mg/dL Total Bilirubin (0.0-1.0) mg/dL Direct Bilirubin (0.0-0.5) mg/dL AST (5-31) U/L ALT (0-31) U/L Alkaline Phosphatase (39-117) U/L Troponin I High Sens (<3.5-17.0) ng/L Total Protein (6.5-8.0) g/dL Albumin (3.5-5.0) g/dL Urine Color Yellow Urine Appearance Cloudy Urine pH 5.5 (5.0-9.0) Ur Specific [place] 1.015 (1.005-1.025) Urine Protein Negative (Neg-Trace) mg/dL Urine Glucose (UA) Negative (Negative) mg/dL Urine Ketones Trace (Negative) mg/dL Urine Blood Negative (Negative) Urine Nitrite Negative (Negative) Ur Leukocyte Esterase Trace H (Negative) Urine RBC 3-5 H (0-2) /HPF Urine WBC 0-5 (0-5) /HPF Ur Squamous Epith Cells 0-2 (0-2) /HPF Calcium Oxalate Crystal Present Urine Bacteria None Seen (None Seen) Hyaline Casts 0-2 (0-2) /LPF Independent Interpretation I performed an independent interpretation of an: EKG and CT Scan Interpretation: I independently reviewed the EKG which shows normal sinus rhythm with a rate 80, normal VT, normal QRS, normal QT, nonspecific ST changes which is unchanged from previous EKG 02/11/2014 Radiology Impression Discussion of test interpretation with radiology: I have reviewed the radiologist's reading. Discharge Plan Discharge Clinical Impression: Face lacerations, Syncope, vasovagal Patient Disposition: Left Against Medical Advice Instructions: Laceration (DC), Syncope (ED), Hypertension (ED) Additional Instructions: Sutures in your face should be removed in 5 days Wash your face gently with soap and water daily. No scrubbing or using a washcloth. No face makeup Follow-up with your PCP without fail Return for worsening symptoms. Return to ED for any slurred speech, facial droop, paralysis of extremities loss of vision, headache, chest pain, shortness of breath, nausea, vomiting, or any other concerning symptoms. Prescriptions: No Action sodium polystyrene sulfonate 15 gram/60 mL suspension 15 g PO DAILY 3 Days Qty: 180 0RF levothyroxine 88 mcg tablet 88 mcg PO QAM Qty: 90 0RF atenolol 25 mg tablet 25 mg PO DAILY 90 Days Qty: 90 0RF simvastatin 20 mg tablet 20 mg PO QPM 90 Days Qty: 90 0RF losartan-hydrochlorothiazide 100-25 mg tablet 1 tab PO DAILY Qty: 90 0RF calcium 600 mg Capsule 1,200 mg PO DAILY flaxseed oil 1,000 mg capsule 1,000 mg PO DAILY Rx Instructions: administer with a meal ascorbic acid (vitamin C) 500 mg tablet 500 mg PO DAILY omega-3 fatty acids [Fish Oil Concentrate] 1,000 mg capsule 1,000 mg PO DAILY aspirin [Adult Aspirin Regimen] 81 mg tablet,delayed release (DR/EC) 81 mg PO DAILY Referrals: Clara Rowan MD [Primary Care Provider] - 5 days (for suture removal) Stand Alone Forms: Against Medical Advice Interventions: ED Discharge Assessment Last Done: 01/31/23 21:17 Discharge Date/Time: 01/31/23 21:18 Print Language: [place]
--- NOTE | 2023-01-31 15:52 | ECG_ITS ---
Test Reason : SYNCOPE Blood Pressure : / mmHG Vent. Rate : 080 BPM Atrial Rate : 080 BPM P-R Int : 142 ms QRS Dur : 062 ms QT Int : 376 ms P-R-T Axes : 068 045 049 degrees QTc Int : 433 ms Normal sinus rhythm Nonspecific ST abnormality Abnormal ECG When compared with ECG of 11-FEB-2014 11:38, No significant change was found Referred By: Ivett Amin Electronically Signed By:Harpreet Garza
[2023-01-31 16:27] LABS: MANUAL DIFF FLAG NO
[2023-01-31 16:29] LABS: Basophils Percent Auto 0.7 % (0-2); Eosinophils Absolute Auto 0.1 X10*3/uL (0.0-0.4); Eosinophils Percent Auto 1.1 % (0-4); Hematocrit 33.6 % (37.0-47.0); Hemoglobin 11.4 g/dl (12.0-16.0); Imm Gran Abs Auto 0.02 X10*3/uL (0.00-0.03); Imm Gran Pct Auto 0.5 % (0.0-0.4); Lymphocytes Percent Auto 22.8 % (20-40); Mean Corpuscular HGB Conc 33.9 g/dl (31.0-35.0); Mean Corpuscular Hemoglobin 33.8 pg (27.0-33.0); Mean Corpuscular Volume 99.7 fL (80.0-98.0); Mean Platelet Volume 8.7 fL (9.4-12.3); Monocytes Absolute Auto 0.4 X10*3/uL (0.1-1.2); Monocytes Percent Auto 8.2 % (2-11); Neutrophils Absolute Auto 2.9 x10*3/uL (2.0-8.3); Neutrophils Percent Auto 66.7 % (45-73); Platelet Count 246 X10*3/uL (160-400); Red Blood Count 3.37 X10*6/uL (4.20-5.50); White Blood Count 4.4 X10*3/uL (4.8-10.8)
[2023-01-31 16:41] VITALS: BP 210/112; PULSE 90
[2023-01-31 16:42] VITALS: BP 191/100; BP 205/108; PULSE 84; PULSE 92
[2023-01-31 16:52] LABS: Alanine Aminotransferase 23 U/L (0-31); Albumin Level 4.5 g/dL (3.5-5.0); Alkaline Phosphatase 96 U/L (39-117); Anion Gap 17 (12-20); Aspartate Amino Transferase 45 U/L (5-31); Bilirubin Direct 0.2 mg/dL (0.0-0.5); Bilirubin Total 0.6 mg/dL (0.0-1.0); Blood Urea Nitrogen 25 mg/dL (9-16); Calcium 9.2 mg/dL (8.4-10.2); Carbon Dioxide 25 mmol/L (22-29); Chloride 97 mmol/L (96-108); Creatinine Clr Calc Pharmacy 33.1; Estimated Glomerular Filt Rate 42; Glucose Random 102 mg/dL (60-115); Magnesium 2.1 mg/dL (1.6-2.6); Potassium 4.6 mmol/L (3.3-5.1); Sodium 134 mmol/L (135-145); Total Protein 7.4 g/dL (6.5-8.0)
[2023-01-31 16:59] LABS: Troponin-I High Sensitivity 6.6 ng/L (<3.5-17.0)
[2023-01-31 17:02] LABS: Appearance Urine Cloudy; Color Urine Yellow; Glucose Urine UA Negative (Negative); Leukocyte Esterase Urine Trace (Negative); Nitrite Urine Negative (Negative); PH 5.5 (5.0-9.0); Specific Gravity - Urine 1.015 (1.005-1.025); UMIC TRIGGER UACC YES; Urine Blood Negative (Negative); Urine Ketones Trace mg/dL (Negative); Urine Protein Negative (Neg-Trace)
[2023-01-31 17:13] LABS: Bacteria Urine None Seen (None Seen); Calcium Oxalate Crystals Urine Present; Hyaline Casts Urine 0-2 /LPF (0-2); Squamous Epithelial Cell Urine 0-2 /HPF (0-2); WBC Urine 0-5 /HPF (0-5)
--- NOTE | 2023-01-31 17:55 | PC.NURSE ---
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
[2023-01-31 18:37] VITALS: BP 210/98; PULSE 85; RESP 16; TEMP 36.4; O2SAT 99
--- NOTE | 2023-01-31 18:38 | PC.NURSE ---
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
--- NOTE | 2023-01-31 19:53 | PC.NURSE ---
Pt ambulatory to the restroom with no difficulty and steady gait.
--- NOTE | 2023-01-31 20:34 | PC.NURSE ---
pt has been hypertensive throughout stay, LAB SCIENTIST has been aware. pt most recent BP 227/121. pt reports that they are traumatized today that their BP is often high, and that they want to go home to take the rest of their medications. Pt states I am not staying
[2023-01-31 20:36] VITALS: BP 227/121
== END 2023-01-31 21:18 | disposition left against medical advice (07) ==
PROVIDERS: Nurse Practitioner Family; Emergency Provider Emergency Medicine; PCP Internal Medicine
DX: R55 Syncope and collapse (principal); S01.81XA Laceration without foreign body of other part of head, initial encounter; S01.511A Laceration without foreign body of lip, initial encounter; S80.211A Abrasion, right knee, initial encounter; I10 Essential (primary) hypertension; E78.5 Hyperlipidemia, unspecified; W17.89XA Other fall from one level to another, initial encounter; Y93.01 Activity, walking, marching and hiking; Y92.531 Health care provider office as the place of occurrence of the external cause; Y99.8 Other external cause status; Z79.82 Long term (current) use of aspirin; Z79.899 Other long term (current) drug therapy; Z79.02 Long term (current) use of antithrombotics/antiplatelets
CPT/HCPCS: 12013; 20610; 36415; 70450; 72125; 80048; 80076; 81001; 81003; 83735; 84484; 85025; 93005; 99284

== ENCOUNTER 2023-02-03 08:30 | Outpatient (REF) | payer OTHER, MEDICARE, SELFPAY | END 2023-02-03 08:31 | disposition home or self-care (01) | LOC: HO.HOSX 08:30 | PROVIDERS: Visit Provider Physician Assistant | DX: Z13.89 Encounter for screening for other disorder (principal) ==

== ENCOUNTER 2023-05-06 14:01 | Outpatient (AMB) | payer MEDICARE, SELFPAY ==
--- NOTE | 2023-05-06 14:06 | MHC.PC.OV ---
Vital Signs 05/06/23 14:07 Height 5 ft 1 in Weight 137 lb 2 oz BMI 25.9 BP 162/90 H Blood Pressure Location Rt brachial Position Sitting Pulse 72 Pulse Source Pulse Oximeter Pulse Oximetry (%) 99 Oxygen Delivery Method Room Air Intake Visit Reasons: BP F/U Allergies No Known Allergies Allergy (Verified 05/06/23 14:14) Medication List - Last Reconciled 05/06/23 by Clara Rowan MD ascorbic acid (vitamin C) 500 mg PO DAILY aspirin (Adult Aspirin Regimen) 81 mg PO DAILY atenolol 25 mg PO DAILY 90 days calcium 1,200 mg PO DAILY flaxseed oil 1,000 mg PO DAILY levothyroxine 88 mcg PO QAM losartan-hydrochlorothiazide 100-25 mg 1 tab PO DAILY omega-3 fatty acids (Fish Oil Concentrate) 1,000 mg PO DAILY simvastatin 20 mg PO QPM 90 days sodium polystyrene sulfonate 15 grams (60 mL) PO DAILY 3 days Tobacco use date assessed: 05/06/23 Fall risk assessment: No Falls in past year Last assessed Fall Risk: 05/06/23 Dental Screening Dental Screen Date: 05/06/23 Did you have a dental visit in the last 12 months?: Yes Did you have a dental problem in the last 6 months where you did not have access to dental care?: No Was dental information given to patient?: Patient has dentist HPI BP F/U HPI Details Patient is 77-year-old female Patient would like us to clean her ears she has been using Debrox ear drops. You was clean initially with ear irrigation and then with curette patient tolerated procedure well ears are clean. Continued to have lower back pain I have ordered x-ray for the patient Hypertension: Is elevated today at 162/90 patient says that it runs 140s at home She is taking losartan hydrochlorothiazide 100-25 mg, and atenolol 25 mg patient I am increasing the atenolol to 50 mg.. Continue simvastatin 20 mg for lipid control and levothyroxine 100 mcg for hypothyroidism. History of macrocytic anemia with vitamin B12 deficiency we will be monitoring the level along with vitamin-D Lab order placed to be done today Impaired fasting sugar: Diet-controlled I have added hemoglobin A1c as well She wanted to talk about RSV and COVID vaccine information provided to patient final decision should be of patient Osteopenia: She is due for bone density patient have mammogram appointment in June she will have bone density then as well Follow-up 3 months [facility] Medical History Hypothyroid HTN (hypertension) Surgical History History of right hip replacement Hx of endarterectomy Hx of carpal tunnel repair Hx of cholecystectomy Hx of tubal ligation Hx of tonsillectomy Family History Family/Other Melanoma Brother Prostate cancer Maternal Grandmother Diabetes CHF (congestive heart failure) Mother CHF (congestive heart failure) Family/Other Ulcerative colitis Social [facility] Alcohol intake: current Alcohol intake frequency: holidays/special occasions only Alcohol type: wine Patient Tobacco Use Status: Never used Tobacco e-Cigarette/Vaping Use: Never Used Second Hand Smoke Exposure: No service: No Current occupational status: retired 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 How often do you have a drink containing alcohol?: Never 3. How often do you have six or more drinks on one occasion?: Never Total Score: 0 Score Reviewed/Action Taken: Yes SALMA-7 AMB Questionnaire SALMA-7 Date SALMA - 7 assessed: 12/03/22 Source: Developed by Drs. Drake Alex, Day Marion, Yariel Jeff and colleagues, with an educational viral from [employer]. Review of Systems Const Denies chills and Denies fever(s) ENT Denies epistaxis and Denies nasal discharge Card Denies chest pain Resp Denies chest congestion, Denies cough and Denies hemoptysis GI Denies diarrhea and Denies nausea Skin/Breast Denies rash Neuro Reports no additional complaints Psych Reports no additional complaints Endo Reports no additional complaints Physical exam (Primary Care) Vital Signs: Last Vital Signs Pulse 72 05/06/23 14:07 BP 162/90 H 05/06/23 14:07 Pulse Ox 99 05/06/23 14:07 Oxygen Delivery Method Room Air 05/06/23 14:07 BMI result Body Mass Index 25.9 Tobacco/Smoking Status: Tobacco use Status Tobacco use date assessed 05/06/23 05/06/23 14:17 Patient Tobacco Use Status Never used Tobacco 05/06/23 14:09 e-Cigarette/Vaping Use Never Used 05/06/23 14:09 Thrive Assessment: Date of Thrive Assessment Date Thrive assessed 12/03/22 05/06/23 14:09 Const General: cooperative, comfortable and no acute distress Orientation/consciousness: patient oriented x3 HENMT Head: Yes normocephalic Eyes General: appearance normal, both eyes and all related structures Neck Neck: Yes supple Resp Effort & Inspection: normal respiratory effort, no cough and no stridor Cardio Rhythm: regular rhythm Heart sounds: S1 normal heart sound present and S2 normal heart sound present Skin General skin exam: turgor normal Neuro General: patient oriented x3, tone normal and moves all extremities Extrem Right lower extremity: no edema Left lower extremity: no edema Office Procedures Cerumen Removal From which ear canal was the cerumen removed: bilateral Removal: irrigation and cerumen loop/spoon Notes: patient tolerated procedure well, no complications and ear canal clear [id number] Wax Removal by Spoon/Curette Assessment and Plan Assessment & Plan (1) Hypertension, essential: Code(s): I10 - Essential (primary) hypertension (2) Macrocytic anemia: Code(s): D53.9 - Nutritional anemia, unspecified (3) B12 deficiency: Code(s): E53.8 - Deficiency of other specified B group vitamins (4) Osteopenia of spine: Code(s): M85.88 - Other specified disorders of bone density and structure, other site (5) Vitamin D deficiency: Code(s): E55.9 - Vitamin D deficiency, unspecified (6) Other specified hypothyroidism: Code(s): E03.8 - Other specified hypothyroidism (7) Impaired fasting blood sugar: Code(s): R73.01 - Impaired fasting glucose (8) Nephropathy: Code(s): N28.9 - Disorder of kidney and ureter, unspecified (9) Lipid disorder: Code(s): E78.9 - Disorder of lipoprotein metabolism, unspecified (10) Lumbar back pain: Code(s): M54.50 - Low back pain, unspecified (11) Low hemoglobin: Code(s): D64.9 - Anemia, unspecified (12) Impacted cerumen, bilateral: Code(s): H61.23 - Impacted cerumen, bilateral Plan Patient is 77-year-old female Patient would like us to clean her ears she has been using Debrox ear drops. You was clean initially with ear irrigation and then with curette patient tolerated procedure well ears are clean. Continued to have lower back pain I have ordered x-ray for the patient Hypertension: Is elevated today at 162/90 patient says that it runs 140s at home She is taking losartan hydrochlorothiazide 100-25 mg, and atenolol 25 mg patient I am increasing the atenolol to 50 mg.. Continue simvastatin 20 mg for lipid control and levothyroxine 100 mcg for hypothyroidism. History of macrocytic anemia with vitamin B12 deficiency we will be monitoring the level along with vitamin-D Lab order placed to be done today Impaired fasting sugar: Diet-controlled I have added hemoglobin A1c as well She wanted to talk about RSV and COVID vaccine information provided to patient final decision should be of patient Osteopenia: She is due for bone density patient have mammogram appointment in June she will have bone density then as well Follow-up 3 months Orders: Orders Complete Blood Count Auto Diff Today D53.9 - Nutritional anemia, unspecified, E03.8 - Other specified hypothyroidism, E53.8 - Deficiency of other specified B group vitamins, E55.9 - Vitamin D deficiency, unspecified, E78.9 - Disorder of lipoprotein metabolism, unspecified, M85.88 - Other specified disorders of bone density and structure, other site, N28.9 - Disorder of kidney and ureter, unspecified, R73.01 - Impaired fasting glucose Comprehensive Met. Panel Today D53.9 - Nutritional anemia, unspecified, E03.8 - Other specified hypothyroidism, E53.8 - Deficiency of other specified B group vitamins, E55.9 - Vitamin D deficiency, unspecified, E78.9 - Disorder of lipoprotein metabolism, unspecified, M85.88 - Other specified disorders of bone density and structure, other site, N28.9 - Disorder of kidney and ureter, unspecified, R73.01 - Impaired fasting glucose LDL Cholesterol Direct Today D53.9 - Nutritional anemia, unspecified, E03.8 - Other specified hypothyroidism, E53.8 - Deficiency of other specified B group vitamins, E55.9 - Vitamin D deficiency, unspecified, E78.9 - Disorder of lipoprotein metabolism, unspecified, M85.88 - Other specified disorders of bone density and structure, other site, N28.9 - Disorder of kidney and ureter, unspecified, R73.01 - Impaired fasting glucose Vitamin D 25-OH (D2 and D3) Today D53.9 - Nutritional anemia, unspecified, E03.8 - Other specified hypothyroidism, E53.8 - Deficiency of other specified B group vitamins, E55.9 - Vitamin D deficiency, unspecified, E78.9 - Disorder of lipoprotein metabolism, unspecified, M85.88 - Other specified disorders of bone density and structure, other site, N28.9 - Disorder of kidney and ureter, unspecified, R73.01 - Impaired fasting glucose XR lumbar spine 2-3V Today M54.50 - Low back pain, unspecified TSH reflex Free T4 Today D53.9 - Nutritional anemia, unspecified, E03.8 - Other specified hypothyroidism, E53.8 - Deficiency of other specified B group vitamins, E55.9 - Vitamin D deficiency, unspecified, E78.9 - Disorder of lipoprotein metabolism, unspecified, M85.88 - Other specified disorders of bone density and structure, other site, N28.9 - Disorder of kidney and ureter, unspecified, R73.01 - Impaired fasting glucose Vitamin B12 Today D53.9 - Nutritional anemia, unspecified, E03.8 - Other specified hypothyroidism, E53.8 - Deficiency of other specified B group vitamins, E55.9 - Vitamin D deficiency, unspecified, E78.9 - Disorder of lipoprotein metabolism, unspecified, M85.88 - Other specified disorders of bone density and structure, other site, N28.9 - Disorder of kidney and ureter, unspecified, R73.01 - Impaired fasting glucose Hemoglobin A1c Today R73.01 - Impaired fasting glucose XR DEXA axial skeleton Today M85.88 - Other specified disorders of bone density and structure, other site Medications: Changed From atenolol 25 mg PO DAILY 90 days 90 tabs 0RF To atenolol 50 mg PO DAILY 90 tabs 0RF 90 days Refilled levothyroxine 88 mcg PO QAM 90 tabs 1RF Coding Level of Care Code Est Pt Level 5 (98395) Diagnoses Hypertension, essential I10 Macrocytic anemia D53.9 B12 deficiency E53.8 Osteopenia of spine M85.88 Vitamin D deficiency E55.9 Other specified hypothyroidism E03.8 Impaired fasting blood sugar R73.01 Nephropathy N28.9 Lipid disorder E78.9 Lumbar back pain M54.50 Low hemoglobin D64.9 Impacted cerumen, bilateral H61.23 CPT Codes Office Procedure - CPT: 15894-Tls Wax Removal by Spoon/Curette ([id number]) Time Spent (min) 45 Comment 5 prep, 30 with patient, 10 charting/ coordination of care
[2023-05-06 14:07] VITALS: BP 162/90; PULSE 72; O2SAT 99; BMI 25.9
== END 2023-05-06 15:55 | disposition home or self-care (01) ==
PROVIDERS: PCP Internal Medicine; Visit Provider Internal Medicine
DX: I10 Essential (primary) hypertension (principal); H61.23 Impacted cerumen, bilateral; D53.9 Nutritional anemia, unspecified; E55.9 Vitamin D deficiency, unspecified; E03.8 Other specified hypothyroidism; M85.88 Other specified disorders of bone density and structure, other site; E53.8 Deficiency of other specified B group vitamins; R73.01 Impaired fasting glucose; N28.9 Disorder of kidney and ureter, unspecified; E78.9 Disorder of lipoprotein metabolism, unspecified; M54.50 Low back pain, unspecified; D64.9 Anemia, unspecified
CPT/HCPCS: 69210; 99215

== ENCOUNTER 2023-05-06 14:51 | Outpatient (REF) | payer MEDICARE, SELFPAY ==
--- NOTE | ~2023-05-06 | XR_ITS ---
EXAMINATION: XR LUMBOSACRAL SPINE CLINICAL INFORMATION: Reason for Exam M54.50 - Low back pain, unspecified COMPARISON: Lumbar spine radiographs 09/18/2019 TECHNIQUE: 3 views of the lumbar spine FINDINGS: 5 nonrib-bearing lumbar-type vertebral bodies. Vertebral body heights are maintained. Dextroconvex curvature of the lumbar spine. Grade 1 retrolisthesis of L1 on L2 and L2 on L3 similar to prior. Advanced multilevel degenerative disc disease with loss of disc space height and facet arthropathy, similar to prior. Atherosclerosis of the abdominal aorta. Right upper quadrant cholecystectomy clips. Partially measuring hip arthroplasty. XR/XR lumbar spine 2-3V IMPRESSION: * Advanced spondylosis of the lumbar spine, as above detailed. 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
[2023-05-06 16:03] LABS: MANUAL DIFF FLAG NO
[2023-05-06 16:23] LABS: Estimated Average Glucose 97 mg/dL
[2023-05-06 16:24] LABS: Basophils Percent Auto 0.7 % (0-2); Eosinophils Percent Auto 0.4 % (0-4); Hematocrit 33.2 % (37.0-47.0); Hemoglobin 11.5 g/dl (12.0-16.0); Imm Gran Abs Auto 0.08 X10*3/uL (0.00-0.03); Imm Gran Pct Auto 1.4 % (0.0-0.4); Lymphocytes Absolute Auto 0.9 X10*3/uL (1.2-4.9); Lymphocytes Percent Auto 16.8 % (20-40); Mean Corpuscular HGB Conc 34.6 g/dl (31.0-35.0); Mean Corpuscular Hemoglobin 34.3 pg (27.0-33.0); Mean Corpuscular Volume 99.1 fL (80.0-98.0); Mean Platelet Volume 9.3 fL (9.4-12.3); Monocytes Absolute Auto 0.6 X10*3/uL (0.1-1.2); Monocytes Percent Auto 11.6 % (2-11); Neutrophils Absolute Auto 3.8 x10*3/uL (2.0-8.3); Neutrophils Percent Auto 69.1 % (45-73); Platelet Count 254 X10*3/uL (160-400); Red Blood Count 3.35 X10*6/uL (4.20-5.50); Red Cell Distribution Width 12.6 % (11.0-16.0); White Blood Count 5.5 X10*3/uL (4.8-10.8)
[2023-05-06 16:35] LABS: Alanine Aminotransferase 22 U/L (0-31); Albumin Level 4.1 g/dL (3.5-5.0); Alkaline Phosphatase 90 U/L (39-117); Anion Gap 14 (12-20); Aspartate Amino Transferase 46 U/L (5-31); Blood Urea Nitrogen 21 mg/dL (9-16); Calcium 9.6 mg/dL (8.4-10.2); Carbon Dioxide 25 mmol/L (22-29); Chloride 93 mmol/L (96-108); Estimated Glomerular Filt Rate 38; Glucose Random 116 mg/dL (60-115); Potassium 3.8 mmol/L (3.3-5.1); Sodium 128 mmol/L (135-145); Total Protein 6.9 g/dL (6.5-8.0)
[2023-05-06 16:50] LABS: TSH reflex Free T4 0.47 uIU/mL (0.32-4.0)
[2023-05-06 17:13] LABS: Vitamin B12 619 pg/mL (200-900)
[2023-05-08 00:55] LABS: LDL Cholesterol Direct 114 mg/dL (<100)
== END 2023-05-06 14:52 | disposition home or self-care (01) ==
LOC: HO.HMGCX 14:51
PROVIDERS: PCP Internal Medicine; Visit Provider Internal Medicine
DX: E53.8 Deficiency of other specified B group vitamins (principal); D35.9 Benign neoplasm of endocrine gland, unspecified; M54.50 Low back pain, unspecified; M85.88 Other specified disorders of bone density and structure, other site; E55.9 Vitamin D deficiency, unspecified; E03.8 Other specified hypothyroidism; R73.01 Impaired fasting glucose; N28.9 Disorder of kidney and ureter, unspecified; E78.9 Disorder of lipoprotein metabolism, unspecified
CPT/HCPCS: 36415; 72100; 80053; 82306; 82607; 83036; 83721; 84443; 85025

== ENCOUNTER 2023-05-13 07:21 | Outpatient (REF) | payer MEDICARE, SELFPAY ==
[2023-05-13 11:48] LABS: Anion Gap 15 (12-20); Carbon Dioxide 24 mmol/L (22-29); Chloride 94 mmol/L (96-108); Potassium 4.5 mmol/L (3.3-5.1); Sodium 128 mmol/L (135-145)
== END 2023-05-13 07:22 | disposition home or self-care (01) ==
LOC: HO.HMGCLDS 07:21
PROVIDERS: PCP Internal Medicine; Visit Provider Internal Medicine
DX: E87.1 Hypo-osmolality and hyponatremia (principal)
CPT/HCPCS: 36415; 80051

== ENCOUNTER 2023-07-06 13:24 | Outpatient (AMB) | payer MEDICARE, SELFPAY ==
[2023-07-06 13:29] VITALS: PULSE 83; O2SAT 98; BMI 25.9
--- NOTE | 2023-07-06 13:29 | A.OFFPC_ITS ---
Vital Signs 07/06/23 13:29 Height 5 ft 1 in Weight 137 lb BMI 25.9 BMI Reason not done Patient refused/unable BP not taken reason Patient Refused Pulse 83 Pulse Source Pulse Oximeter Pulse Oximetry (%) 98 Oxygen Delivery Method Room Air Intake Visit Reasons: Back pain Allergies No Known Allergies Allergy (Verified 07/06/23 13:29) Medication List - Last Reconciled 07/06/23 by Clara Rowan MD ascorbic acid (vitamin C) 500 mg PO DAILY aspirin (Adult Aspirin Regimen) 81 mg PO DAILY atenolol 50 mg PO DAILY 90 days calcium 1,200 mg PO DAILY flaxseed oil 1,000 mg PO DAILY levothyroxine 88 mcg PO QAM losartan-hydrochlorothiazide 100-25 mg 1 tab PO DAILY omega-3 fatty acids (Fish Oil Concentrate) 1,000 mg PO DAILY simvastatin 20 mg PO QPM 90 days sodium polystyrene sulfonate 15 grams (60 mL) PO DAILY 3 days Tobacco use date assessed: 07/06/23 Last assessed Fall Risk: 07/06/23 Dental Screening Dental Screen Date: 07/06/23 Did you have a dental visit in the last 12 months?: No Did you have a dental problem in the last 6 months where you did not have access to dental care?: No Was dental information given to patient?: Patient declined HPI Back pain HPI Details Patient is 77-year-old female came in today to go over her back x-rays Continued to have pain Patient says that it depends on her activity level X-ray showed * Advanced spondylosis of the lumbar spine, as above detailed. 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 Information provided to patient it is a electronic scrubber with handle. Patient have a Medicare wellness visit coming up end of this month Meanwhile she may take Tylenol as needed for discomfort [facility] Medical History Hypothyroid HTN (hypertension) Surgical History History of right hip replacement Hx of endarterectomy Hx of carpal tunnel repair Hx of cholecystectomy Hx of tubal ligation Hx of tonsillectomy Family History Family/Other Melanoma Brother Prostate cancer Maternal Grandmother Diabetes CHF (congestive heart failure) Mother CHF (congestive heart failure) Family/Other Ulcerative colitis Social History Housing: Condominium Alcohol intake: current Alcohol intake frequency: holidays/special occasions only Alcohol type: wine Patient Tobacco Use Status: Never used Tobacco e-Cigarette/Vaping Use: Never Used Second Hand Smoke Exposure: No service: No Current occupational status: retired 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 How often do you have a drink containing alcohol?: 2-3 times a week 2. How many drinks containing alcohol do you have on a typical day when you are drinking?: 1 or 2 3. How often do you have six or more drinks on one occasion?: Never Total Score: 3 Score Reviewed/Action Taken: Yes SALMA-7 AMB Questionnaire SALMA-7 Date SALMA - 7 assessed: 12/03/22 Feeling nervous, anxious, or on edge: 0 = Not at all Not being able to stop or control worryin = Not at all Worrying too much about different things: 0 = Not at all Trouble relaxin = Not at all Being so restless that it is hard to sit still: 0 = Not at all Becoming easily annoyed or irritable: 0 = Not at all Feeling afraid as if something awful might happen: 0 = Not at all Total SALMA-7 score (0-4 normal; 5-9 mild; 10-14 moderate; 15-21 severe): 0 Source: Developed by Drs. Drake Alex, Day Marion, Yariel Jeff and colleagues, with an educational viral from [employer]. Review of Systems Const Denies chills and Denies fever(s) ENT Denies epistaxis and Denies nasal discharge Card Denies chest pain Resp Denies chest congestion, Denies cough and Denies hemoptysis GI Denies diarrhea and Denies nausea Skin/Breast Denies rash Neuro Reports no additional complaints Psych Reports no additional complaints Endo Reports no additional complaints Physical exam (Primary Care) Vital Signs: Last Vital Signs Pulse 83 07/06/23 13:29 Pulse Ox 98 07/06/23 13:29 Oxygen Delivery Method Room Air 07/06/23 13:29 BMI result Body Mass Index 25.9 Tobacco/Smoking Status: Tobacco use Status Tobacco use date assessed 07/06/23 07/06/23 13:30 Patient Tobacco Use Status Never used Tobacco 07/06/23 13:30 e-Cigarette/Vaping Use Never Used 07/06/23 13:30 Thrive Assessment: Date of Thrive Assessment Date Thrive assessed 12/03/22 07/06/23 13:30 Const General: cooperative, comfortable and no acute distress Orientation/consciousness: patient oriented x3 HENMT Head: Yes normocephalic Eyes General: appearance normal, both eyes and all related structures Neck Neck: Yes supple Resp Effort & Inspection: normal respiratory effort, no cough and no stridor Cardio Rhythm: regular rhythm Heart sounds: S1 normal heart sound present and S2 normal heart sound present Skin General skin exam: turgor normal Neuro General: patient oriented x3, tone normal and moves all extremities Extrem Right lower extremity: no edema Left lower extremity: no edema Assessment and Plan Assessment & Plan (1) Lumbar back pain: Code(s): M54.50 - Low back pain, unspecified Plan Patient is 77-year-old female came in today to go over her back x-rays Continued to have pain Patient says that it depends on her activity level X-ray showed * Advanced spondylosis of the lumbar spine, as above detailed. 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 Information provided to patient it is a electronic scrubber with handle. Patient have a Medicare wellness visit coming up end of this month Meanwhile she may take Tylenol as needed for discomfort Orders: Orders Complete Blood Count Auto Diff Today D53.9 - Nutritional anemia, unspecified, E03.8 - Other specified hypothyroidism, E78.9 - Disorder of lipoprotein metabolism, unspecified, E87.1 - Hypo-osmolality and hyponatremia, I10 - Essential (primary) hypertension, N28.9 - Disorder of kidney and ureter, unspecified, R73.01 - Impaired fasting glucose Comprehensive Met. Panel Today D53.9 - Nutritional anemia, unspecified, E03.8 - Other specified hypothyroidism, E78.9 - Disorder of lipoprotein metabolism, unspecified, E87.1 - Hypo-osmolality and hyponatremia, I10 - Essential (primary) hypertension, N28.9 - Disorder of kidney and ureter, unspecified, R73.01 - Impaired fasting glucose Coding Level of Care Code Est Pt Level 3 (91835) Diagnoses Lumbar back pain M54.50
== END 2023-07-06 14:26 | disposition home or self-care (01) ==
PROVIDERS: PCP Internal Medicine; Visit Provider Internal Medicine
DX: M54.50 Low back pain, unspecified (principal)
CPT/HCPCS: 99213

== ENCOUNTER 2023-07-19 08:34 | Outpatient (REF) | payer MEDICARE, SELFPAY ==
--- NOTE | ~2023-07-19 | MM_ITS ---
EXAMINATION: BONE DENSITOMETRY CLINICAL INDICATION: Other specified disorders of bone density and structure. COMPARISON: Previous BD dated 07/02/2020 and baseline BD dated 11/24/2006. TECHNIQUE: Using a [employer] DXA System (software version: 13.1) manufactured by [employer], dual-energy x-ray absorptiometry was performed of the lumbar spine and left hip. The images are of good technical quality. Summary results are attached. FINDINGS: LEFT FEMUR, NECK: Current: BMD 0.434 g/cm2, Z-score -2.3, T-score -4.3, osteoporosis. Prior: BMD 0.751 g/cm2. Baseline: BMD 0.852 g/cm2. LEFT FEMUR, TOTAL: Current: BMD 0.432 g/cm2, Z-score -2.7, T-score -4.6, osteoporosis, 45.0% decrease from previous, 52.8% decrease from baseline (<5% change is not significant). Prior: BMD 0.786 g/cm2. Baseline: BMD 0.915 g/cm2. AP SPINE L1-L4: Current: BMD 1.504 g/cm2, Z-score 4.6, T-score 2.7, normal, 2.1% decrease from previous, 10.9% increase from baseline (<5% change is not significant). Prior: BMD 1.536 g/cm2. Baseline: BMD 1.356 g/cm2. IDENTIFIED RISK FACTORS: Menopause. HISTORY OF FRACTURE: None listed. MEDICATIONS: Calcium, vitamin D. MM/XR DEXA axial skeleton IMPRESSION: 1. DIAGNOSIS: Osteoporosis based on the lowest T-score value of -4.6 in the total femur applying World Health Organization criteria. 2. 10-YEAR FRACTURE RISK PREDICTION, FRAX: According to the guidelines, FRAX calculation should only be performed on patients in the osteopenia bone density category. Therefore, FRAX was not performed on this patient. 3. Treatment Recommendations: NOF guidelines recommend consideration for treatment in postmenopausal women and men age 50 and older presenting with the following: -A hip or vertebral (clinical or morphometric) fracture. -T-score less than or equal to -2.5 at the femoral neck or spine after appropriate evaluation to exclude secondary causes. -Low bone mass at the hip or spine and a 10-year fracture probability by FRAX of greater than or equal to 3% for hip fracture or greater than or equal to 20% for major osteoporotic fracture based on the [place] adapted WHO algorithm. 4. Other Recommendations: All treatment decisions require clinical judgment and consideration of individual patient factors, including patient preferences, comorbidities, previous drug use, risk factors not captured in the FRAX model (e.g. frailty, falls, vitamin D deficiency, increased bone turnover, interval significant decline in bone density) and possible under or overestimation of fracture risk by FRAX. Additional medical evaluation for secondary cause of low bone mineral density may be appropriate. FUTURE SCAN RECOMMENDATION: People with diagnosed cases of osteoporosis or at high risk for fracture should have regular bone mineral density tests. For patients eligible for Medicare, routine testing is allowed once every 2 years. The testing frequency can be increased to one year for patients who have rapidly progressing disease, those who are receiving or discontinuing medical therapy to restore bone mass, or have additional risk factors.
--- NOTE | ~2023-07-19 | MM_ITS ---
EXAMINATION: MM SCREENING DIGITAL BREAST TOMOSYNTHESIS, BILATERAL CLINICAL INFORMATION: Screening. Asymptomatic. COMPARISON: Mammography: 07/16/2022, 07/14/2021, 07/02/2020, 02/20/2019 TECHNIQUE: Digital breast tomosynthesis is performed in both the craniocaudal and mediolateral oblique views along with computer-aided detection (CAD). Synthesized 2D images are generated from the tomosynthesis. FINDINGS: There are scattered areas of fibroglandular density (ACR BI-RADS breast composition Category b). There are bilateral benign vascular calcifications. There are dermal lesions again seen outer left breast. There are no suspicious masses, suspicious grouped calcifications, or areas of architectural distortion in either breast. The parenchymal pattern is stable from prior exams. MM/MM tomosynthesis screening BI IMPRESSION: No mammographic evidence of malignancy. ASSESSMENT: BI-RADS BI-RADS 2 - Benign Findings RECOMMENDATION: Routine annual mammography screening. 1 year F/U This examination should not preclude the clinical evaluation of a suspicious palpable abnormality. This patient's information was entered into a reminder system with a target due date for their next mammogram.
== END 2023-07-19 08:35 | disposition home or self-care (01) ==
LOC: HO.MAMMO 08:34
PROVIDERS: PCP Internal Medicine; Visit Provider Internal Medicine
DX: Z12.31 Encounter for screening mammogram for malignant neoplasm of breast (principal); Z13.820 Encounter for screening for osteoporosis; Z78.0 Asymptomatic menopausal state; M85.88 Other specified disorders of bone density and structure, other site
CPT/HCPCS: 77063; 77067; 77080

== ENCOUNTER → 2023-07-19 09:00 | Outpatient (BNV) | payer MEDICARE, SELFPAY | PROVIDERS: PCP Internal Medicine; Visit Provider Radiology Diagnostic Radiology | DX: Z12.31 Encounter for screening mammogram for malignant neoplasm of breast (principal) | CPT/HCPCS: 77063; 77067 ==

== ENCOUNTER 2023-07-27 10:51 | Outpatient (AMB) | payer MEDICARE, SELFPAY ==
[2023-07-27 10:53] VITALS: BP 144/72; PULSE 82; O2SAT 96; BMI 25.3
--- NOTE | 2023-07-27 10:53 | MHC.PC.OV ---
Vital Signs 07/27/23 10:53 Height 5 ft 1 in Intake Visit Reasons: Annual PE Covered by Annual PE Allergies No Known Allergies Allergy (Verified 07/27/23 10:53) Tobacco use date assessed: 07/27/23 Last assessed Fall Risk: 07/27/23 Dental Screening Dental Screen Date: 07/27/23 [facility] Medical History Hypothyroid HTN (hypertension) Surgical History History of right hip replacement Hx of endarterectomy Hx of carpal tunnel repair Hx of cholecystectomy Hx of tubal ligation Hx of tonsillectomy Family History Family/Other Melanoma Brother Prostate cancer Maternal Grandmother Diabetes CHF (congestive heart failure) Mother CHF (congestive heart failure) Family/Other Ulcerative colitis Social History Housing: Condominium Alcohol intake: current Alcohol intake frequency: holidays/special occasions only Alcohol type: wine Patient Tobacco Use Status: Never used Tobacco e-Cigarette/Vaping Use: Never Used Second Hand Smoke Exposure: No service: No Current occupational status: retired 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 Drake Alex, Day Marion, Yariel Jeff and colleagues, with an educational viral from [employer]. Physical exam (Primary Care) Tobacco/Smoking Status: Tobacco use Status Tobacco use date assessed 07/06/23 07/06/23 13:30 Patient Tobacco Use Status Never used Tobacco 07/06/23 13:30 e-Cigarette/Vaping Use Never Used 07/06/23 13:30 Thrive Assessment: Date of Thrive Assessment Date Thrive assessed 12/03/22 07/06/23 13:30 Coding
--- NOTE | 2023-07-27 11:03 | AM.OFFVISMDC ---
Intake Vital Signs 07/27/23 10:53 Height 5 ft 1 in Weight 134 lb 2 oz BMI 25.3 BP 144/72 H Blood Pressure Location Rt brachial Position Sitting Pulse 82 Pulse Source Pulse Oximeter Pulse Oximetry (%) 96 Oxygen Delivery Method Room Air Intake Visit Reasons: Annual PE Covered by Annual PE Allergies No Known Allergies Allergy (Verified 07/27/23 10:53) Medication List - Last Reconciled 07/27/23 by Clara Roawn MD ascorbic acid (vitamin C) 500 mg PO DAILY aspirin (Adult Aspirin Regimen) 81 mg PO DAILY atenolol 50 mg PO DAILY 90 days calcium 1,200 mg PO DAILY flaxseed oil 1,000 mg PO DAILY levothyroxine 88 mcg PO QAM losartan-hydrochlorothiazide 100-25 mg 1 tab PO DAILY omega-3 fatty acids (Fish Oil Concentrate) 1,000 mg PO DAILY simvastatin 20 mg PO QPM 90 days HPI Annual PE Covered by Annual PE HPI Details 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 To medication from PCP office Simvastatin and levothyroxine She will come in every 6 months follow-up I have told her to have [facility] with the labs they are doing every 3-4 months. Her blood pressure medications were adjusted and they will be filled through Nephrology. HPI Comments History of Present Illness Details AW[facility] Medical/social history reviewed Past medical history reviewed [place] of care / care team list updated Surgical/ hospitalization history reviewed Current medications including OTC and supplements reviewed Family history reviewed Tobacco controlled form updated Alcohol use form updated Illicit drug use in social history reviewed Current diagnosis of depression ?screening updated Appropriate PHQ 2/PHQ-9 completed . Vital signs reviewed Alcohol tobacco drug use reviewed and discussed . MMSE completed . ? Fall risk: ?Assessed Fall history: ?None Have you had any falls with injury in the past year?? No Have you had 2 or more falls in the past year?? No Fall risk assessment completed Home safety discussed with the patient Functional ability assessed and discussed and documented Activities of daily living reviewed and appropriate actions taken . HRA filled out by the patient and reviewed by provider and scanned . Appropriate written screening schedule established . Any health advise needed provided . Advance care planning discussed with the patient , necessary paperwork filled Examination IPPE/AWE: Balance intact Romberg FAILED Tandem walk FAILED walk-in turn FAILED rise from sit to stand FAILED . ?Hearing ?whisper test FAILED . Medication list reviewed, patient is stable on medications All other providers patient is seeing discussed and noted . [facility] Medical History Hypothyroid HTN (hypertension) Surgical History History of right hip replacement Hx of endarterectomy Hx of carpal tunnel repair Hx of cholecystectomy Hx of tubal ligation Hx of tonsillectomy Family History Family/Other Melanoma Brother Prostate cancer Maternal Grandmother Diabetes CHF (congestive heart failure) Mother CHF (congestive heart failure) Family/Other Ulcerative colitis Social [facility] Alcohol intake: current Alcohol intake frequency: holidays/special occasions only Alcohol type: wine Patient Tobacco Use Status: Never used Tobacco e-Cigarette/Vaping Use: Never Used Second Hand Smoke Exposure: No service: No Current occupational status: retired 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 Cognitive needs: No Hearing needs: No Vision needs: Yes Questionnaire Medicare Wellness Checkup [age] What gender do you identify with?: female During the past 4 weeks, how much have you been bothered by emotional problems such as feeling anxious, depressed, irritable, sad or downhearted, and blue?: not at all During the past 4 weeks, has your physical & emotional health limited your social activities with family, friends, neighbors, or groups?: not at all During the past 4 weeks, how much bodily pain have you generally had?: very mild pain During the past 4 weeks, was someone available to help you if you needed & wanted help?: yes, as much as I wanted During the past 4 weeks, what was the hardest physical activity you could do for at least 2 minutes?: heavy Can you get to places out of walking distance without help? (For eg., can you travel alone on buses, taxis or drive your car?): Yes Can you go shopping for groceries or clothes without someone's help?: Yes Can you prepare your own meals?: Yes Can you do your housework without help?: Yes Because of any health problems, do you need the help of another person with your personal care needs such as eating, bathing, dressing or getting around the house?: No Can you handle your own money without help?: Yes During the past 4 weeks, how would you rate your health in general?: good During the past 4 weeks how have things been going for you?: pretty well Are you having difficulties driving your car?: no Do you always fasten your seat belt when you are in a car?: yes, usually During past 4 weeks, have you been bothered by the following: never: Falling or dizzy when standing up, Sexual problems?, Trouble eating well?, Teeth or denture problems?, Problems using the telephone? and Tiredness or fatigue? Have you fallen 2 or more times in the past year?: No Are you afraid of falling?: No Are you a smoker?: no During the past 4 weeks, how many drinks of wine, beer, or other alcoholic beverages did you have?: 2-5 drinks per week Do you exercise for about 20 minutes 3 or more times a week?: yes, some of the time Have you been given information to help with the following?: yes: Hazards in your house that might hurt you? and yes: Keeping track of your medications? How often do you have trouble taking medicines the way you have been told to take them?: I always take medicine as prescribed How confident are you that you can control & manage most of your health problems?: very confident What is your race?: White Mini Mental State Exam (MMSE) Orientation What is the (year) (season) (date) (day) (month)?: year, season, date, day and month Where are we (state) (county) (town or city) (hospital) (floor)?: state, county, town or city, hospital/clinic and floor Score Score: 10 Activity of Daily Living Bathing - sponge bath, tub bath or shower: receives no assistance (gets in/out by self, if usual bathing means Dressing - getting clothes from closets & drawers, including inner/outer garments & fasteners.: gets clothes & gets completely dressed without help Toileting - going to the 'toilet room' for urine/bowel elimination & cleaning self/arranging clothes: goes to toilet room, cleans self, arranges clothes without help Transfer: moves in & out of bed and chair without help (may use support object) Continence: controls urination/bowel movements completely by self Feeding: feeds self without help Total Score: 0 Information obtained from: patient Using telephone: independent Traveling: independent Shopping: independent Preparing meals: independent Housework: needs assistance Taking medicine: independent Managing money: independent PHQ-9 Over the last 2 weeks, how often have you been bothered by any of the following problems? 1. Little interest or pleasure in doing things: not at all 2. Feeling down, depressed, or hopeless: not at all 3. Trouble falling or staying asleep, or sleeping too much: not at all 4. Feeling tired or having little energy: not at all 5. Poor appetite or overeating: not at all 6. Feeling bad about yourself - or that you are a failure or have let yourself or your family down: not at all 7. Trouble concentrating on things, such as reading the newspaper or watching television: not at all 8. Moving or speaking so slowly that other people could have noticed. Or the opposite - being so fidgety or restless that you have been moving around a lot more than usual: not at all 9. Thoughts that you would be better off or of hurting yourself in some way: not at all Total score: 0 Depression Screening Interpretation: Negative Depression Screening Done: Yes 38551 - PHQ-9 Billing: Yes Source: Developed by Drs. Drake Alex, Day Marion, Yariel Jeff and colleagues, with an educational viral from [employer]. 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 To medication from PCP office Simvastatin and levothyroxine She will come in every 6 months follow-up I have told her to have Nephrology at [facility] with the labs they are doing every 3-4 months. Her blood pressure medications were adjusted and they will be filled through Nephrology. Medications: Discontinued sodium polystyrene sulfonate Discontinued Reason: Doctor's Order 15 grams (60 mL) PO DAILY 3 days 180 mL 0RF Quality Reporting (2019) Depression/Bipolar (159/160/161/177) PHQ-9: Total score: 0 Coding Level of Care Code Medicare Subsequent (G0439) Diagnoses Medicare annual wellness visit, subsequent Z00.00 CPT Codes Advance Care Planning - Time spent: 1-15 minutes, not on file ([id number]) Advance Care Planning Advance Care Planning discussion: Completed/Scanned Forms completed: CASSIE Time spent: 1-15 minutes, not on file
== END 2023-07-27 11:30 | disposition home or self-care (01) ==
PROVIDERS: PCP Internal Medicine; Visit Provider Internal Medicine
DX: Z00.00 Encounter for general adult medical examination without abnormal findings (principal)
CPT/HCPCS: 1124F; G0439

== ENCOUNTER 2023-10-03 08:00 | Outpatient (REF) | payer MEDICARE, SELFPAY ==
[2023-10-03 12:08] LABS: Blood Urea Nitrogen 17 mg/dL (9-16); Estimated Glomerular Filt Rate 37
== END 2023-10-03 08:01 | disposition home or self-care (01) ==
LOC: HO.HMGCLDS 08:00
PROVIDERS: PCP Internal Medicine; Visit Provider Radiology Vascular & Interventional Radiology
DX: R79.89 Other specified abnormal findings of blood chemistry (principal); R94.4 Abnormal results of kidney function studies
CPT/HCPCS: 36415; 82565; 84520

== ENCOUNTER 2024-01-24 08:40 | Outpatient (AMB) | payer MEDICARE, SELFPAY ==
[2024-01-24 08:44] VITALS: BP 180/106; PULSE 73; O2SAT 99; BMI 24.8
--- NOTE | 2024-01-24 08:44 | MHC.PC.OV ---
Vital Signs 01/24/24 08:44 01/24/24 09:05 Height 5 ft 1 in Weight 131 lb 8 oz BMI 24.8 BP 180/106 H 160/90 H Blood Pressure Location Rt brachial Position Sitting Pulse 73 Pulse Source Pulse Oximeter Pulse Oximetry (%) 99 Oxygen Delivery Method Room Air Intake Visit Reasons: 6 Month F/U Allergies No Known Allergies Allergy (Verified 01/24/24 08:50) Medication List - Last Reconciled 01/24/24 by Clara Rowan MD ascorbic acid (vitamin C) 500 mg PO DAILY aspirin (Adult Aspirin Regimen) 81 mg PO DAILY atenolol 50 mg PO DAILY 90 days calcium 1,200 mg PO DAILY cyanocobalamin (vitamin B-12) 1,000 mcg PO .qod 90 days flaxseed oil 1,000 mg PO DAILY levothyroxine 88 mcg PO QAM losartan-hydrochlorothiazide 100-25 mg 1 tab PO DAILY omega-3 fatty acids (Fish Oil Concentrate) 1,000 mg PO DAILY simvastatin 20 mg PO QPM 90 days Tobacco use date assessed: 01/24/24 Fall risk assessment: No Falls in past year Last assessed Fall Risk: 01/24/24 Dental Screening Dental Screen Date: 01/24/24 Did you have a dental visit in the last 12 months?: No Did you have a dental problem in the last 6 months where you did not have access to dental care?: No Was dental information given to patient?: No HPI 6 Month F/U HPI Details Patient is 78-year-old female came in today for follow-up appointment and for pain management Patient is lower back pain is flaring up again She is requesting medication and assistance She had an x-ray done which showed * Advanced spondylosis of the lumbar spine, as above detailed. 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 I have sent tramadol tablet patient may take that as needed. Patient is aware of side effects of possible constipation and drowsiness and risk for fall. Her blood pressure is elevated today which is being managed by Nephrology I rechecked after 15 minute it has come down to 160 systolic Patient says that she had visit with Nephrology recently and her blood pressure was fine there. Osteoporosis: Patient is also going to endocrinology and is waiting for her injectable medication to be approved by the insurance company. Continue B12 supplement She is on simvastatin for lipid control Patient says that all her labs are through Nephrology office and they are also monitoring her B12 and liver functions Patient has a follow-up appointment in June [facility] Medical History Hypothyroid HTN (hypertension) Surgical History History of right hip replacement Hx of endarterectomy Hx of carpal tunnel repair Hx of cholecystectomy Hx of tubal ligation Hx of tonsillectomy Family History Family/Other Melanoma Brother Prostate cancer Maternal Grandmother Diabetes CHF (congestive heart failure) Mother CHF (congestive heart failure) Family/Other Ulcerative colitis Social History [facility] Alcohol intake: current Alcohol intake frequency: holidays/special occasions only Alcohol type: wine Patient Tobacco Use Status: Never used Tobacco e-Cigarette/Vaping Use: Never Used Second Hand Smoke Exposure: No service: No Current occupational status: retired 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 1. Little interest or pleasure in doing things: not at all 2. Feeling down, depressed, or hopeless: not at all 3. Trouble falling or staying asleep, or sleeping too much: not at all 4. Feeling tired or having little energy: not at all 5. Poor appetite or overeating: not at all 6. Feeling bad about yourself - or that you are a failure or have let yourself or your family down: not at all 7. Trouble concentrating on things, such as reading the newspaper or watching television: not at all 8. Moving or speaking so slowly that other people could have noticed. Or the opposite - being so fidgety or restless that you have been moving around a lot more than usual: not at all 9. Thoughts that you would be better off or of hurting yourself in some way: not at all Total score: 0 Depression Screening Interpretation: Negative Depression Screening Done: Yes 68502 - PHQ-9 Billing: Yes Source: Developed by Drs. Drake Alex, Day Marion, Yariel Jeff and colleagues, with an educational viral from [employer]. Thrive Questionnaire Date Thrive assessed: 01/24/24 I am a: Patient What is your living situation today?: I have a steady place to live Within the past 12 months, did the food you bought not last and you didn't have the money to get more?: Never true Within the past 12 months, did you worry whether your food would run out before you got money to buy more?: Never true Do you have trouble paying for medicines?: No Do you have trouble getting transportation to medical appointments?: No Do you have trouble paying your heating and electricity bill?: No Do you have trouble taking care of your child, family member or friend?: No Do you have trouble with day-to-day activities such as bathing, preparing meals, shopping, managing finances, etc.?: No Are you currently unemployed and looking for a job?: No Are you interested in more education?: No Please select the resources that you would like help with: None Currently or been in a relationship where the following occur: no concerns reported THRIVE Score: 0 AUDIT C Alcohol Use Questionnaire (AUDIT-C) 1. How often do you have a drink containing alcohol?: 2-3 times a week 2. How many drinks containing alcohol do you have on a typical day when you are drinking?: 1 or 2 3. How often do you have six or more drinks on one occasion?: Never Total Score: 3 Score Reviewed/Action Taken: Yes SALMA-7 AMB Questionnaire SALMA-7 Date SALMA - 7 assessed: 01/24/24 Feeling nervous, anxious, or on edge: 0 = Not at all Not being able to stop or control worryin = Not at all Worrying too much about different things: 0 = Not at all Trouble relaxin = Not at all Being so restless that it is hard to sit still: 0 = Not at all Becoming easily annoyed or irritable: 0 = Not at all Feeling afraid as if something awful might happen: 0 = Not at all Total SALMA-7 score (0-4 normal; 5-9 mild; 10-14 moderate; 15-21 severe): 0 Source: Developed by Drs. Drake Alex, Day Marion, Yariel Jeff and colleagues, with an educational viral from [employer]. SALMA-7 Assessment Billing SALMA-7 Assessment Tool: SALMA-7 Assessment 52244 Review of Systems Const Denies chills and Denies fever(s) ENT Denies epistaxis and Denies nasal discharge Card Denies chest pain Resp Denies chest congestion, Denies cough and Denies hemoptysis GI Denies diarrhea and Denies nausea Skin/Breast Denies rash Neuro Reports no additional complaints Psych Reports no additional complaints Endo Reports no additional complaints Physical exam (Primary Care) Vital Signs: Last Vital Signs Pulse 73 01/24/24 08:44 BP 160/90 H 01/24/24 09:05 Pulse Ox 99 01/24/24 08:44 Oxygen Delivery Method Room Air 01/24/24 08:44 BMI result Body Mass Index 24.8 Tobacco/Smoking Status: Tobacco use Status Tobacco use date assessed 01/24/24 01/24/24 08:51 Patient Tobacco Use Status Never used Tobacco 01/24/24 08:51 e-Cigarette/Vaping Use Never Used 01/24/24 08:51 PHQ-9: PHQ-9 Score PHQ-9: Total score 0 01/24/24 09:02 Depression Screening Interpretation: Negative Thrive Assessment: Date of Thrive Assessment Date Thrive assessed 01/24/24 01/24/24 08:51 Currently or been in a relationship where the following occur: no concerns reported Const General: cooperative, comfortable and no acute distress Orientation/consciousness: patient oriented x3 HENMT Head: Yes normocephalic Eyes General: appearance normal, both eyes and all related structures Neck Neck: Yes supple Resp Effort & Inspection: normal respiratory effort, no cough and no stridor Cardio Rhythm: regular rhythm Heart sounds: S1 normal heart sound present and S2 normal heart sound present Back/Spine/Pelvis Back/spine/pelvis image: 1. Site of pain, range of motion limited, straight leg negative Skin General skin exam: turgor normal Neuro General: patient oriented x3, tone normal and moves all extremities Extrem Right lower extremity: no edema Left lower extremity: no edema Assessment and Plan Assessment & Plan (1) Lumbar back pain: Code(s): M54.50 - Low back pain, unspecified (2) Hypertension, essential: Code(s): I10 - Essential (primary) hypertension (3) Impaired fasting blood sugar: Code(s): R73.01 - Impaired fasting glucose (4) B12 deficiency: Code(s): E53.8 - Deficiency of other specified B group vitamins (5) Macrocytic anemia: Code(s): D53.9 - Nutritional anemia, unspecified (6) Osteopenia of spine: Code(s): M85.88 - Other specified disorders of bone density and structure, other site (7) Vitamin D deficiency: Code(s): E55.9 - Vitamin D deficiency, unspecified (8) Other specified hypothyroidism: Code(s): E03.8 - Other specified hypothyroidism (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 - Other chondrocalcinosis, unspecified site (10) Lipid disorder: Code(s): E78.9 - Disorder of lipoprotein metabolism, unspecified (11) Low hemoglobin: Code(s): D64.9 - Anemia, unspecified Plan Patient is 78-year-old female came in today for follow-up appointment and for pain management Patient have a history of osteoporosis, impaired fasting sugar, hypertension, nephropathy, DJD lumbar spine Hypothyroidism, lipid disorder Patient is lower back pain is flaring up again She is requesting medication and assistance She had an x-ray done which showed * Advanced spondylosis of the lumbar spine, as above detailed. 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 I have sent tramadol tablet patient may take that as needed. Patient is aware of side effects of possible constipation and drowsiness and risk for fall. Her blood pressure is elevated today which is being managed by Nephrology I rechecked after 15 minute it has come down to 160 systolic Patient says that she had visit with Nephrology recently and her blood pressure was fine there. Osteoporosis: Patient is also going to endocrinology and is waiting for her injectable medication to be approved by the insurance company. Continue B12 supplement She is on simvastatin for lipid control Patient says that all her labs are through Nephrology office and they are also monitoring her B12 and liver functions Patient has a follow-up appointment in June Orders: Orders Comprehensive Met. Panel Today D53.9 - Nutritional anemia, unspecified, D64.9 - Anemia, unspecified, E03.8 - Other specified hypothyroidism, E53.8 - Deficiency of other specified B group vitamins, E55.9 - Vitamin D deficiency, unspecified, E78.9 - Disorder of lipoprotein metabolism, unspecified, I10 - Essential (primary) hypertension, M11.20 - Other chondrocalcinosis, unspecified site, M85.88 - Other specified disorders of bone density and structure, other site, R73.01 - Impaired fasting glucose LDL Cholesterol Direct Today D53.9 - Nutritional anemia, unspecified, D64.9 - Anemia, unspecified, E03.8 - Other specified hypothyroidism, E53.8 - Deficiency of other specified B group vitamins, E55.9 - Vitamin D deficiency, unspecified, E78.9 - Disorder of lipoprotein metabolism, unspecified, I10 - Essential (primary) hypertension, M11.20 - Other chondrocalcinosis, unspecified site, M85.88 - Other specified disorders of bone density and structure, other site, R73.01 - Impaired fasting glucose Vitamin B12 Today D53.9 - Nutritional anemia, unspecified, D64.9 - Anemia, unspecified, E03.8 - Other specified hypothyroidism, E53.8 - Deficiency of other specified B group vitamins, E55.9 - Vitamin D deficiency, unspecified, E78.9 - Disorder of lipoprotein metabolism, unspecified, I10 - Essential (primary) hypertension, M11.20 - Other chondrocalcinosis, unspecified site, M85.88 - Other specified disorders of bone density and structure, other site, R73.01 - Impaired fasting glucose Vitamin D 25-OH (D2 and D3) Today D53.9 - Nutritional anemia, unspecified, D64.9 - Anemia, unspecified, E03.8 - Other specified hypothyroidism, E53.8 - Deficiency of other specified B group vitamins, E55.9 - Vitamin D deficiency, unspecified, E78.9 - Disorder of lipoprotein metabolism, unspecified, I10 - Essential (primary) hypertension, M11.20 - Other chondrocalcinosis, unspecified site, M85.88 - Other specified disorders of bone density and structure, other site, R73.01 - Impaired fasting glucose Complete Blood Count Auto Diff Today D53.9 - Nutritional anemia, unspecified, D64.9 - Anemia, unspecified, E03.8 - Other specified hypothyroidism, E53.8 - Deficiency of other specified B group vitamins, E55.9 - Vitamin D deficiency, unspecified, E78.9 - Disorder of lipoprotein metabolism, unspecified, I10 - Essential (primary) hypertension, M11.20 - Other chondrocalcinosis, unspecified site, M85.88 - Other specified disorders of bone density and structure, other site, R73.01 - Impaired fasting glucose TSH reflex Free T4 Today D53.9 - Nutritional anemia, unspecified, D64.9 - Anemia, unspecified, E03.8 - Other specified hypothyroidism, E53.8 - Deficiency of other specified B group vitamins, E55.9 - Vitamin D deficiency, unspecified, E78.9 - Disorder of lipoprotein metabolism, unspecified, I10 - Essential (primary) hypertension, M11.20 - Other chondrocalcinosis, unspecified site, M85.88 - Other specified disorders of bone density and structure, other site, R73.01 - Impaired fasting glucose Ferritin Today D53.9 - Nutritional anemia, unspecified, D64.9 - Anemia, unspecified, E03.8 - Other specified hypothyroidism, E53.8 - Deficiency of other specified B group vitamins, E55.9 - Vitamin D deficiency, unspecified, E78.9 - Disorder of lipoprotein metabolism, unspecified, I10 - Essential (primary) hypertension, M11.20 - Other chondrocalcinosis, unspecified site, M85.88 - Other specified disorders of bone density and structure, other site, R73.01 - Impaired fasting glucose Hemoglobin A1c Today D53.9 - Nutritional anemia, unspecified, D64.9 - Anemia, unspecified, E03.8 - Other specified hypothyroidism, E53.8 - Deficiency of other specified B group vitamins, E55.9 - Vitamin D deficiency, unspecified, E78.9 - Disorder of lipoprotein metabolism, unspecified, I10 - Essential (primary) hypertension, M11.20 - Other chondrocalcinosis, unspecified site, M85.88 - Other specified disorders of bone density and structure, other site, R73.01 - Impaired fasting glucose Medications: New tramadol Medication will cause dizziness, drowsiness, may cause constipation, there is a risk of fall No driving while medication taken 50 mg PO DAILY 30 tabs 0RF Lower back pain Coding Level of Care Code Est Pt Level 4 (32070) Diagnoses Lumbar back pain M54.50 Hypertension, essential I10 Impaired fasting blood sugar R73.01 B12 deficiency E53.8 Macrocytic anemia D53.9 Osteopenia of spine M85.88 Vitamin D deficiency E55.9 Other specified hypothyroidism E03.8 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
[2024-01-24 09:05] VITALS: BP 160/90
== END 2024-01-24 09:52 | disposition home or self-care (01) ==
PROVIDERS: PCP Internal Medicine; Visit Provider Internal Medicine
DX: M54.50 Low back pain, unspecified (principal); I10 Essential (primary) hypertension; R73.01 Impaired fasting glucose; E53.8 Deficiency of other specified B group vitamins; D53.9 Nutritional anemia, unspecified; M85.88 Other specified disorders of bone density and structure, other site; E55.9 Vitamin D deficiency, unspecified; E03.8 Other specified hypothyroidism; M11.20 Other chondrocalcinosis, unspecified site; E78.9 Disorder of lipoprotein metabolism, unspecified; D64.9 Anemia, unspecified
CPT/HCPCS: 99214

== ENCOUNTER → 2024-04-26 11:50 | Outpatient (RCR) | payer MEDICARE, SELFPAY ==
[2020-10-20 14:04] VITALS: BP 175/81; PULSE 97; RESP 12; TEMP 36.8; O2SAT 98; BMI 24.5
--- NOTE | 2020-10-20 14:31 | MHC.HEMONCMA ---
Patient came in for a consult for her low hemoglobin. She states that she is doing well. Her chart was reviewed and updated as needed. She will have labs and will have a telehealth appt in 4 weeks.
[2020-10-20 14:33] LABS: MANUAL DIFF FLAG NO
--- NOTE | 2020-10-20 14:36 | P.CNHO_ITS ---
Subjective - Subjective Chief complaint: Low hemoglobin Patient: new to practice Consult date: 10/20/20 Primary Care Provider: Clara Rowan MD HPI - Consult Narrative Reason for consult: Anemia Narrative: Mary Lou Rocha is a 75 year old female referred for evaluation of macrocytic anemia. Since 2018. In June 2019 her hemoglobin was 12.7, in January 2028 was 11.9, in August 2020 it was 9.2. Today it is 10.8 gram/dL. She has chronic macrocytosis, MCV was 103 in April 2020, it was 106 in August 2020. She does admit to drinking alcohol/wine on a daily basis. She was on vitamin B12 supplementation last year but does not take it anymore. In April 2020 her vitamin B12 level was 203 pg/mL. She does report some weight loss which she says she has been trying to do. She denies loss of appetite, fever, chills, night sweats, chest pain or shortness of breath. No abdominal discomfort. She has had previous normal colonoscopies. She is up-to-date on screening mammograms. Review of Systems - Constitutional Reports no additional constitutional complaints, Denies fatigue, Denies lack of energy, Denies malaise, Denies night sweats - Cardiovascular Denies no additional cardiovascular complaints - Respiratory Denies no additional respiratory complaints - Gastrointestinal Denies no additional gastrointestinal complaints Oncology Screenings - ECOG Performance Status ECOG Performance Status: 0 PMFSH Medical History: Medical History (Last Updated 10/20/20 @ 14:08 by Mavis Mckeon) HTN (hypertension) Hypothyroid Family History: Family History (Last Updated 10/20/20 @ 14:12 by Mavis Mckeon) Family/Other Melanoma Brother Prostate cancer Maternal Grandmother Diabetes CHF (congestive heart failure) Mother CHF (congestive heart failure) Family/Other Ulcerative colitis Surgical History: Surgical History (Last Updated 10/20/20 @ 14:10 by Mavis Mckeon) History of right hip replacement Hx of carpal tunnel repair Hx of cholecystectomy Hx of endarterectomy Hx of tonsillectomy Hx of tubal ligation Social History: Social History (Last Updated 10/20/20 @ 14:13 by Mavis Mckeon) Alcohol History: Alcohol intake: current Alcohol History Details: Alcohol intake frequency: holiday/special occasion Alcohol type: wine Tobacco History: Smoking Status: Never smoker Substance Use History: Use of substances other than those prescribed or required for medical reasons : No Smoking status: Never smoker Home Medications and Allergies Home Medications Medication Instructions Recorded Confirmed Type aspirin 81 mg tablet,delayed 81 mg PO DAILY 09/12/20 10/20/20 History release levothyroxine 100 mcg capsule 100 mcg PO DAILY 09/12/20 10/20/20 History lisinopril 30 mg tablet 30 mg PO DAILY 09/12/20 10/20/20 History omega-3 fatty acids 1,000 mg 1,000 mg PO DAILY 09/12/20 10/20/20 History capsule simvastatin 20 mg tablet 20 mg PO BEDTIME 09/12/20 10/20/20 History calcium 1,200 mg PO DAILY 10/20/20 10/20/20 History Allergies Allergy/AdvReac Type Severity Reaction Status Date / Time No Known Allergies Allergy Unverified 05/15/20 14:34 Physical Exam Vital signs: Vital Signs Temp 98.3 F 10/20/20 14:04 Pulse 97 10/20/20 14:04 Resp 12 10/20/20 14:04 BP 175/81 H 10/20/20 14:04 Pulse Ox 98 10/20/20 14:04 Intake & Output 10/19/20 10/20/20 10/20/20 18:59 06:59 18:59 Other: Weight 59 kg Weight in Grams [id number] Weight 59 kg - Constitutional Present: no acute distress - Routine HEENT Exam Head: Present: normal inspection Eye: Present: EOMI - Routine Neck Exam Present: supple - Routine Respiratory Exam Present: CTAB - Routine Cardiovascular Exam Cardiovascular: Present: S1, S2 - Routine Abdominal Exam Present: soft - Routine Extremities Exam Absent: pedal edema - Routine Skin Exam Present: intact. Absent: erythema - Routine Neurological Exam Present: hearing grossly intact - Routine Psychiatric Exam Present: normal affect Hem/Onc Consult Result - Labs CBC & Chem 7: 10/20/20 14:32 10/20/20 14:32 Assessment and Plan (1) Macrocytic anemia Status: Chronic 1. This is a 75-year-old woman with gradually worsening macrocytic anemia. Her hemoglobin has gradually declined since 2018. Her macrocytosis had worsened compared to previous in August 2020. She does have a history of vitamin B12 deficiency, she stopped taking B12 late last year. She also has a history of chronic nearly daily alcohol intake which could be contributing to her macrocytosis. I have also discussed cutting back on alcohol which scan sometimes be a bone marrow suppressant. Her kidney functions have worsened slightly which could be contributing to anemia. However blood work today shows some improvement in hemoglobin. Vitamin B12 and folic acid levels as well as rest of hematological workup is pending at this time. At her age, underlying primary hematological abnormalities such as myelodyspl astic syndrome and lymphoma/plasma cell dyscrasia or also in the differential. Further recommendations to follow. I thank you very much for this consultation. Follow-up in 1 month.
[2020-10-20 14:41] LABS: Basophils Percent Auto 0.5 % (0-2); Eosinophils Absolute Auto 0.1 X10*3/uL (0.0-0.4); Eosinophils Percent Auto 2.3 % (0-4); Hematocrit 33.2 % (37-47); Hemoglobin 10.8 g/dl (12.0-16.0); Imm Gran Abs Auto 0.03 X10*3/uL (0.00-0.03); Imm Gran Pct Auto 0.5 % (0.0-0.4); Immature Retic Fraction 8.5 % (3.0-15.9); Lymphocytes Absolute Auto 1.3 X10*3/uL (1.2-4.9); Lymphocytes Percent Auto 22.2 % (20-40); Mean Corpuscular HGB Conc 32.5 g/dl (31.0-35.0); Mean Corpuscular Hemoglobin 33.5 pg (27.0-33.0); Mean Corpuscular Volume 103.1 fL (80-98); Monocytes Absolute Auto 0.8 X10*3/uL (0.1-1.2); Monocytes Percent Auto 12.5 % (2-11); Neutrophils Absolute Auto 3.7 X10*3/uL (2.0-8.3); Platelet Count 257 X10*3/uL (160-400); Red Blood Count 3.22 X10*6/uL (4.20-5.50); Red Cell Distribution Width 13.3 % (11.0-16.0); Retic HGB Equivalent 36.8 pg (30.0-35.0); Reticulocyte Percent 2.1 % (0.5-1.8); Reticulocytes Absolute 0.068 X10*6/uL (0.026-0.095)
[2020-10-20 15:05] LABS: Alanine Aminotransferase 17 U/L (0-31); Albumin Level 4.2 g/dL (3.5-5.0); Alkaline Phosphatase 90 U/L (39-117); Anion Gap 14 (12-20); Aspartate Amino Transferase 22 U/L (5-31); Bilirubin Total 0.4 mg/dL (0.0-1.0); Blood Urea Nitrogen 33 mg/dL (9-16); Calcium 9.3 mg/dL (8.4-10.2); Carbon Dioxide 23 mmol/L (22-29); Chloride 106 mmol/L (96-108); Creatinine Clr Calc Pharmacy 34.5; Estimated Glomerular Filt Rate 45; Glucose Random 146 mg/dL (60-115); Lactate Dehydrogenase 178 U/L (122-220); Potassium 4.5 mmol/L (3.3-5.1); Sodium 138 mmol/L (135-145); Total Protein 6.7 g/dL (6.5-8.0)
[2020-10-20 15:26] LABS: TSH reflex Free T4 1.58 uIU/mL (0.32-4.0)
[2020-10-23 15:27] LABS: Prot Elec - Albumin 4.1 g/dL (3.8-4.8); Prot Elec - Alpha1 0.4 g/dL (0.2-0.3); Prot Elec - Alpha2 0.8 g/dL (0.5-0.9); Prot Elec - Beta 1 0.4 g/dL (0.4-0.6); Prot Elec - Beta 2 0.3 g/dL (0.2-0.5); Prot Elec - Gamma 0.6 g/dL (0.8-1.7); Prot Elec - Total Protein 6.7 g/dL (6.1-8.1)
[2020-10-24 05:25] LABS: Folate 18.3 ng/mL (> or = 4.0); Vitamin B12 355 pg/mL (200-900)
[2020-10-24 14:27] LABS: IgA 194 mg/dL (70-320); IgG 673 mg/dL (600-1540); IgM 33 mg/dL (50-300)
--- NOTE | 2020-11-17 11:13 | P.PNHO_ITS ---
Hem/Onc Clinic Telehealth - Telehealth Location of Provider rendering services: Office Location of Patient: Home Patient Identification confirmed using: Name, : Yes Telehealth Method: Telephone Patient verbally consented to treatment: Yes Patient verbally consented to billing insurance company: Yes Patient informed of any privacy concerns related to visit: Yes Medical Summary - Medical Summary Date of Service: 11/17/20 Chief complaint: Follow-up Interval History Interval history: This is scheduled follow-up for patient. This was to discuss results of blood work from her last visit. She is doing very well, states that she has cut back alcohol and is feeling great. She has no complaints today. Home Medications and Allergies Home Medications Medication Instructions Recorded Confirmed Type aspirin 81 mg tablet,delayed 81 mg PO DAILY 09/12/20 10/20/20 History release levothyroxine 100 mcg capsule 100 mcg PO DAILY 09/12/20 10/20/20 History lisinopril 30 mg tablet 30 mg PO DAILY 09/12/20 10/20/20 History omega-3 fatty acids 1,000 mg 1,000 mg PO DAILY 09/12/20 10/20/20 History capsule simvastatin 20 mg tablet 20 mg PO BEDTIME 09/12/20 10/20/20 History calcium 1,200 mg PO DAILY 10/20/20 10/20/20 History Allergies Allergy/AdvReac Type Severity Reaction Status Date / Time No Known Allergies Allergy Unverified 05/15/20 14:34 Exam Vital signs: Vital Signs Temp 98.3 F 10/20/20 14:04 Pulse 97 10/20/20 14:04 Resp 12 10/20/20 14:04 BP 175/81 H 10/20/20 14:04 Pulse Ox 98 10/20/20 14:04 Weight 59 kg Body Mass Index 24.5 - Constitutional Present: no acute distress - Routine HEENT Exam Head: Present: normal inspection - Routine Respiratory Exam Present: CTAB - Routine Cardiovascular Exam Cardiovascular: Present: S1, S2 - Routine Abdominal Exam Present: soft - Routine Extremities Exam Absent: pedal edema - Routine Skin Exam Present: intact. Absent: erythema - Routine Neurological Exam Present: hearing grossly intact Data - Labs CBC & Chem 7: 10/20/20 14:32 10/20/20 14:32 Labs: 10/20/20 14:32 Complete Blood Count Auto Diff Routine Comprehensive Met. Panel Routine Immunofixation Pnl, Serum Routine Lactate Dehydrogenase Routine Protein Electrophoresis, Serum Routine Reticulocyte Count Routine TSH reflex Free T4 Routine Vitamin B12 and Folate Routine Laboratory Last Values WBC 6.0 X10*3/uL (4.8-10.8) 10/20/20 14:32 RBC 3.22 X10*6/uL (4.20-5.50) L 10/20/20 14:32 Hgb 10.8 g/dl (12.0-16.0) L 10/20/20 14:32 Hct 33.2 % (37-47) L 10/20/20 14:32 MCV 103.1 fL (80-98) H 10/20/20 14:32 MCH 33.5 pg (27.0-33.0) H 10/20/20 14:32 MCHC 32.5 g/dl (31.0-35.0) 10/20/20 14:32 RDW 13.3 % (11.0-16.0) 10/20/20 14:32 Plt Count 257 X10*3/uL (160-400) D 10/20/20 14:32 MPV 9.0 fL (9.4-12.3) L 10/20/20 14:32 Immature Gran % (Auto) 0.5 % (0.0-0.4) H 10/20/20 14:32 Neut % (Auto) 62.0 % (45-73) 10/20/20 14:32 Lymph % (Auto) 22.2 % (20-40) 10/20/20 14:32 Eagle % (Auto) 12.5 % (2-11) H 10/20/20 14:32 Eos % (Auto) 2.3 % (0-4) 10/20/20 14:32 Baso % (Auto) 0.5 % (0-2) 10/20/20 14:32 Lymph # (Auto) 1.3 X10*3/uL (1.2-4.9) 10/20/20 14:32 Eagle # (Auto) 0.8 X10*3/uL (0.1-1.2) 10/20/20 14:32 Eos # (Auto) 0.1 X10*3/uL (0.0-0.4) 10/20/20 14:32 Baso # (Auto) 0.0 X10*3/uL (0.0-0.2) 10/20/20 14:32 Abs Immat Gran (auto) 0.03 X10*3/uL (0.00-0.03) 10/20/20 14:32 Absolute Neuts (auto) 3.7 X10*3/uL (2.0-8.3) 10/20/20 14:32 Absolute Nucleated RBC 0.000 X10*3/uL (0.0-0.012) 10/20/20 14:32 Nucleated RBC % (auto) 0.0 /100WBC (0.0-0.2) 10/20/20 14:32 Absolute Retic 0.068 X10*6/uL (0.026-0.095) 10/20/20 14:32 Percent Retic 2.1 % (0.5-1.8) H 10/20/20 14:32 Immature Retic Fraction 8.5 % (3.0-15.9) 10/20/20 14:32 Retic Hgb Equivalent 36.8 pg (30.0-35.0) H 10/20/20 14:32 Sodium 138 mmol/L (135-145) 10/20/20 14:32 Potassium 4.5 mmol/L (3.3-5.1) 10/20/20 14:32 Chloride 106 mmol/L (96-108) 10/20/20 14:32 Carbon Dioxide 23 mmol/L (22-29) 10/20/20 14:32 Anion Gap 14 (12-20) 10/20/20 14:32 BUN 33 mg/dL (9-16) H D 10/20/20 14:32 Creatinine 1.18 mg/dL (0.5-1.4) 10/20/20 14:32 Estim Creat Clear Calc 34.5 10/20/20 14:32 Estimated GFR 45 10/20/20 14:32 Random Glucose 146 mg/dL (60-115) H D 10/20/20 14:32 Calcium 9.3 mg/dL (8.4-10.2) 10/20/20 14:32 Total Bilirubin 0.4 mg/dL (0.0-1.0) 10/20/20 14:32 AST 22 U/L (5-31) D 10/20/20 14:32 ALT 17 U/L (0-31) 10/20/20 14:32 Alkaline Phosphatase 90 U/L (39-117) D 10/20/20 14:32 Lactate Dehydrogenase 178 U/L (122-220) 10/20/20 14:32 Total Protein 6.7 g/dL (6.5-8.0) 10/20/20 14:32 Total Protein (PEP) 6.7 g/dL (6.1-8.1) 10/20/20 14:32 Albumin 4.2 g/dL (3.5-5.0) 10/20/20 14:32 Albumin (PEP) 4.1 g/dL (3.8-4.8) 10/20/20 14:32 Lvvds-1-Mzdlcmstl 0.4 g/dL (0.2-0.3) H 10/20/20 14:32 Zkxjt-3-Lqgongrxs 0.8 g/dL (0.5-0.9) 10/20/20 14:32 Jxjc-8-Zfztgnlf 0.4 g/dL (0.4-0.6) 10/20/20 14:32 Ffrj-0-Oudbjxzd 0.3 g/dL (0.2-0.5) 10/20/20 14:32 Gamma Globulins 0.6 g/dL (0.8-1.7) L 10/20/20 14:32 Abnorm Protein Band 1 TNP 10/20/20 14:32 Abnorm Protein Band 2 TNP 10/20/20 14:32 Abnorm Protein Band 3 TNP 10/20/20 14:32 PEP Interpretation SEE NOTE 10/20/20 14:32 Vitamin B12 355 pg/mL (200-900) 10/20/20 14:32 Folate 18.3 ng/mL (> or = 4.0) 10/20/20 14:32 TSH 1.58 uIU/mL (0.32-4.0) 10/20/20 14:32 IgG Total 673 mg/dL (600-1540) 10/20/20 14:32 IgA Total 194 mg/dL (70-320) 10/20/20 14:32 IgM 33 mg/dL (50-300) L 10/20/20 14:32 ROZ Interpretation SEE NOTE 10/20/20 14:32 Progress Note: A/P (1) Macrocytic anemia Status: Chronic Assessment and plan: 1. This is a 75-year-old woman with gradually worsening macrocytic anemia. Her hemoglobin has gradually declined since 2018. Her macrocytosis had worsened compared to previous in August 2020. She does have a history of vitamin B12 deficiency, she stopped taking B12 late last year. She also has a history of chronic nearly daily alcohol intake which could be contributing to her macrocytosis. I have also discussed cutting back on alcohol which scan so metimes be a bone marrow suppressant. Her kidney functions have worsened slightly which could be contributing to anemia. However blood work today shows some improvement in hemoglobin. Normal Vitamin B12 and folic acid levels, serum protein electrophoresis/ROZ shows no monoclonal protein. Results discussed with the patient. Repeat CBC next month. - Time Spent With Patient Total time spent is greater than 50% in coordination of care (as documented) at patient's floor/unit and/or counseling patient: 15 - 24 minutes
--- NOTE | 2020-11-17 12:00 | MHC.HEMONCMA ---
Patient had telelhealth appt with the doctor, states she has no complaints. Clinical summary was reviewed and updated. She will go to the [facility] lab for some lab work and will return in 2 months for an in person follow up.
== END | disposition home or self-care (01) ==
LOC: HO.ONC 10-20 13:42
PROVIDERS: PCP Internal Medicine; Referring Provider Internal Medicine; Visit Provider Internal Medicine
DX: D53.9 Nutritional anemia, unspecified (principal)
CPT/HCPCS: 36415; 80053; 82607; 82746; 82784; 83615; 84155; 84165; 84443; 85025; 85045; 86334; 99204; Q3014

== ENCOUNTER 2024-06-01 15:19 | Emergency (ER) | payer OTHER, MEDICARE, SELFPAY ==
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
--- NOTE | ~2024-06-01 | XR_ITS ---
EXAMINATION: XR ELBOW, LEFT CLINICAL INFORMATION: Pain, injury. COMPARISON: None available. TECHNIQUE: AP, lateral, and oblique views of the left elbow. FINDINGS: Equivocal subtle avulsion fracture at the tip of the coronoid process in the proximal ulna on the lateral view. No subluxation. No joint effusion. No unexpected radiopaque foreign bodies. XR/XR elbow LT min 3V IMPRESSION: Equivocal subtle avulsion fracture at the tip of the coronoid process in the proximal ulna. Correlate for point tenderness. Electronically signed by: Kanwal Reich MD 06/01/2024 06:17 PM EDT
[2024-06-01 15:28] VITALS: BP 102/49; PULSE 94; RESP 18; TEMP 36.6; O2SAT 98; BMI 24.1
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
[2024-06-01 15:42] LABS: MANUAL DIFF FLAG NO
[2024-06-01 15:43] LABS: Basophils Absolute Auto 0.1 X10*3/uL (0.0-0.2); Basophils Percent Auto 1.2 % (0-2); Eosinophils Absolute Auto 0.1 X10*3/uL (0.0-0.4); Eosinophils Percent Auto 1.2 % (0-4); Hematocrit 31.1 % (37.0-47.0); Hemoglobin 10.8 g/dl (12.0-16.0); Imm Gran Abs Auto 0.02 X10*3/uL (0.00-0.03); Imm Gran Pct Auto 0.4 % (0.0-0.4); Lymphocytes Absolute Auto 2.2 X10*3/uL (1.2-4.9); Lymphocytes Percent Auto 44.8 % (20-40); Mean Corpuscular HGB Conc 34.7 g/dl (31.0-35.0); Mean Corpuscular Hemoglobin 36.5 pg (27.0-33.0); Mean Corpuscular Volume 105.1 fL (80.0-98.0); Mean Platelet Volume 8.9 fL (9.4-12.3); Monocytes Absolute Auto 0.7 X10*3/uL (0.1-1.2); Monocytes Percent Auto 14.3 % (2-11); Neutrophils Absolute Auto 1.8 x10*3/uL (2.0-8.3); Neutrophils Percent Auto 38.1 % (45-73); Platelet Count 189 X10*3/uL (160-400); Red Blood Count 2.96 X10*6/uL (4.20-5.50); Red Cell Distribution Width 14.2 % (11.0-16.0); White Blood Count 4.8 X10*3/uL (4.8-10.8)
--- NOTE | 2024-06-01 15:53 | PC.NURSE ---
provider bedside w/ pt at this time as pt continuously attempting to remove c-collar w/o being medically cleared. pt educated by provider as well as this RN in regards to why c-collar remaining in place is so important. pt verbalizing, i don't care, i don't have a broken neck! and continued to remove c-collar anyway. pt currently having head CT completed at this time. plan of care ongoing.
[2024-06-01 16:04] LABS: Alanine Aminotransferase 47 U/L (0-31); Albumin Level 3.7 g/dL (3.5-5.0); Alkaline Phosphatase 136 U/L (39-117); Anion Gap 18 (12-20); Aspartate Amino Transferase 113 U/L (5-31); Bilirubin Total 0.4 mg/dL (0.0-1.0); Blood Urea Nitrogen 26 mg/dL (9-16); Calcium 8.8 mg/dL (8.4-10.2); Carbon Dioxide 20 mmol/L (22-29); Chloride 104 mmol/L (96-108); Creatinine Clr Calc Pharmacy 16.9; Estimated Glomerular Filt Rate 21; Ethanol 349 mg/dL; Glucose Random 203 mg/dL (60-115); Potassium 3.7 mmol/L (3.3-5.1); Sodium 138 mmol/L (135-145); Total Protein 6.4 g/dL (6.5-8.0)
[2024-06-01] MEDS: 0.9 % Sodium Chloride 1,000 ML 999 ML IV (16:43)
--- NOTE | 2024-06-01 16:44 | PC.NURSE ---
20gIV placed in the right AC - IVF administered per provider order. skin tear on left elbow wrapped w/ nonadhesive/gauze by tech. pt now placed back on c-collar until scans result. respirations remain even/unlabored. plan of care ongoing.
--- NOTE | 2024-06-01 17:00 | PC.NURSE ---
pt to xray at this time.
--- NOTE | 2024-06-01 17:07 | PC.NURSE ---
pt to xray at this time.
[2024-06-01 18:26] VITALS: BP 112/59; PULSE 84; RESP 16; TEMP 36.5; O2SAT 96
[2024-06-01 19:07] LABS: Alanine Aminotransferase 43 U/L (0-31); Albumin Level 3.3 g/dL (3.5-5.0); Alkaline Phosphatase 161 U/L (39-117); Anion Gap 18 (12-20); Aspartate Amino Transferase 107 U/L (5-31); Bilirubin Total 0.3 mg/dL (0.0-1.0); Blood Urea Nitrogen 25 mg/dL (9-16); Calcium 8.2 mg/dL (8.4-10.2); Carbon Dioxide 17 mmol/L (22-29); Chloride 107 mmol/L (96-108); Creatinine Clr Calc Pharmacy 17.2; Estimated Glomerular Filt Rate 21; Glucose Random 142 mg/dL (60-115); Potassium 4.1 mmol/L (3.3-5.1); Sodium 138 mmol/L (135-145); Total Protein 6.5 g/dL (6.5-8.0)
[2024-06-01 19:50] VITALS: BP 112/59; PULSE 84; RESP 16; TEMP 36.5; O2SAT 96
== END 2024-06-01 19:40 | disposition home or self-care (01) ==
PROVIDERS: Physician Assistant Medical; Emergency Provider Student in an Organized Health Care Education/Training Program; PCP Internal Medicine
DX: F10.120 Alcohol abuse with intoxication, uncomplicated (principal); Y90.8 Blood alcohol level of 240 mg/100 ml or more; E86.0 Dehydration; S52.042A Displaced fracture of coronoid process of left ulna, initial encounter for closed fracture; V47.5XXA Car driver injured in collision with fixed or stationary object in traffic accident, initial encounter; M47.812 Spondylosis without myelopathy or radiculopathy, cervical region; Y93.89 Activity, other specified; Y92.414 Local residential or business street as the place of occurrence of the external cause; Y99.9 Unspecified external cause status; I10 Essential (primary) hypertension; E78.5 Hyperlipidemia, unspecified
CPT/HCPCS: 36415; 70450; 72125; 73080; 80053; 80307; 85025; 96360; 96361; 99285

== ENCOUNTER 2024-07-20 08:22 | Outpatient (REF) | payer MEDICARE, SELFPAY ==
--- NOTE | ~2024-07-20 | MM_ITS ---
EXAMINATION: MM SCREENING DIGITAL BREAST TOMOSYNTHESIS, BILATERAL CLINICAL INFORMATION: Screening. Asymptomatic. COMPARISON: Mammography: Comparison is made with available priors TECHNIQUE: Digital breast mammography with tomosynthesis is performed in both the craniocaudal and mediolateral oblique views along with computer-aided detection (CAD). FINDINGS: There are scattered areas of fibroglandular density (ACR BI-RADS breast composition Category b). There are no significant masses, abnormal calcifications, or other abnormalities. MM/MM tomosynthesis screening BI IMPRESSION: No mammographic evidence of malignancy. ASSESSMENT: BI-RADS BI-RADS 1 - Negative RECOMMENDATION: Routine annual mammography screening. 1 year F/U This examination should not preclude the clinical evaluation of a suspicious palpable abnormality. This patient's information was entered into a reminder system with a target due date for their next mammogram. Electronically signed by: Myrna Pederson DO 07/31/2024 09:28 AM MICHELLE
== END 2024-07-20 08:23 | disposition home or self-care (01) ==
LOC: HO.MAMMO 08:22
PROVIDERS: PCP Internal Medicine; Visit Provider Internal Medicine
DX: Z12.31 Encounter for screening mammogram for malignant neoplasm of breast (principal)
CPT/HCPCS: 77063; 77067

== ENCOUNTER → 2024-07-20 08:30 | Outpatient (BNV) | payer MEDICARE, SELFPAY | PROVIDERS: PCP Internal Medicine; Visit Provider Internal Medicine | DX: Z12.31 Encounter for screening mammogram for malignant neoplasm of breast (principal) | CPT/HCPCS: 77063; 77067 ==

== ENCOUNTER 2024-07-24 08:51 | Outpatient (AMB) | payer MEDICARE, SELFPAY ==
[2024-07-24 08:53] VITALS: BP 110/62; PULSE 82; O2SAT 94; BMI 23.0
--- NOTE | 2024-07-24 08:53 | A.OFFVIS_ITS ---
Intake Vital Signs 07/24/24 08:53 Height 5 ft 3 in Weight 130 lb BMI 23.0 BP 110/62 Blood Pressure Location Rt brachial Position Sitting Pulse 82 Pulse Source Pulse Oximeter Pulse Oximetry (%) 94 Oxygen Delivery Method Room Air Intake Visit Reasons: SWV [id number] Allergies No Known Allergies Allergy (Verified 07/24/24 08:53) Medication List - Last Reconciled 07/24/24 by Clara Rowan MD ascorbic acid (vitamin C) 500 mg PO DAILY aspirin (Adult Aspirin Regimen) 81 mg PO DAILY atenolol 50 mg PO DAILY 90 days calcium 1,200 mg PO DAILY cyanocobalamin (vitamin B-12) 1,000 mcg PO .qod 90 days flaxseed oil 1,000 mg PO DAILY furosemide 20 mg PO DAILY levothyroxine 88 mcg PO QAM losartan-hydrochlorothiazide 100-25 mg 1 tab PO DAILY omega-3 fatty acids (Fish Oil Concentrate) 1,000 mg PO DAILY simvastatin 20 mg PO QPM 90 days Do you need a note to return to daycare/school/sports/work: No HPI V G4039 HPI Details Health Maintenance - Mammogram recently completed, followin g up on results. 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 - Inquiry about Vitamin D supplementatio n, discussed taking 1,000 IU - Blood pressure monitored, result is sa tisfactory; to continue managing with cu rrent medications. Blood pressure managed by Nephrology - Balance and fall risk assessment, advi sed monitoring for any changes. - Reviewed health care proxy status, upd ated as needed. Assessment and Plan 78-year-old female with a history of ane chaitanya, chronic kidney disease, and multiple chronic conditions presenting for a routine follow-up. 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 The patient is well-informed about her conditions, medication regimen, and ongoing health maintenance. The recent mammogram needs follow-up, and discussions occurred concerning the necessity of further colorectal screening. The patient's balance was assessed, and no falls were reported in the past year. 1. Anemia The patient has persistent anemia, likely secondary to chronic kidney disease. Hemoglobin levels have decreased slightly and will need re-evaluation. Discussed possible causes and reinforced adherence to current therapeutic plans from her lyft driver. Ordered re-evaluation through repeat labs and coordination with renal specialist as needed. 2. Hyperlipidemia Continued management with statin therapy. No immediate changes to her lipid- lowering regimen unless new lab results necessitate an adjustment. 3. Hypothyroidism Management with levothyroxine. No immediate issues concerning thyroid function were raised, indicating stability with current dosage. 4. Venous Insufficiency Patient observed with superficial venous prominence and discoloration related to increased vascular pressure. Monitoring for further symptoms or exacerbation suggested. Potential referral to vascular specialist if condition deteriorates. 5. Chronic Kidney Disease Monitoring for progression of the disease, with recent lab follow-ups and coordination with a nephrology team. Addressed concern about anemia correlating with renal status. Continued the patient's current medicine regimen, including blood pressure management. 6. Hypertension Controlled with current treatment regimen. Blood pressure measurement was satisfactory at this visit. Continue management as per nephrology consultation and adjust as needed, with regular monitoring. HPI Comments History of Present Illness Details AWV Medical/social history reviewed Past medical history reviewed Ramona of care / care team list updated Surgical/ hospitalization history reviewed Current medications including OTC and supplements reviewed Family history reviewed Tobacco controlled form updated Alcohol use form updated Illicit drug use in social history reviewed Current diagnosis of depression ?screening updated Appropriate PHQ 2/PHQ-9 completed . Vital signs reviewed Alcohol tobacco drug use reviewed and discussed . MMSE completed . ? Fall risk: ?Assessed Fall history: ?None Have you had any falls with injury in the past year?? No Have you had 2 or more falls in the past year?? No Fall risk assessment completed Home safety discussed with the patient Functional ability assessed and discussed and documented Activities of daily living reviewed and appropriate actions taken . HRA filled out by the patient and reviewed by provider and scanned . Appropriate written screening schedule established . Any health advise needed provided . Advance care planning discussed with the patient , necessary paperwork filled Examination IPPE/AWE: Balance able to walk with the help of cane Romberg failed Tandem walk failed walk-in turn failed rise from sit to stand failed . ?Hearing ?whisper test failed . Medication list reviewed, patient is stable on medications All other providers patient is seeing discussed and noted . [facility] [place] Medical History Hypothyroid HTN (hypertension) Surgical History History of right hip replacement Hx of endarterectomy Hx of carpal tunnel repair Hx of cholecystectomy Hx of tubal ligation Hx of tonsillectomy Family History Family/Other Melanoma Brother Prostate cancer Maternal Grandmother Diabetes CHF (congestive heart failure) Mother CHF (congestive heart failure) Family/Other Ulcerative colitis Social History Housing: Condominium Alcohol intake: current Alcohol intake frequency: 0-2 drinks per day Alcohol type: hard liquor Patient Tobacco Use Status: Never used Tobacco e-Cigarette/Vaping Use: Never Used Second Hand Smoke Exposure: No service: No Current occupational status: retired 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 Cognitive needs: No Hearing needs: No Vision needs: Yes Questionnaire Medicare Wellness Checkup [age] What gender do you identify with?: female During the past 4 weeks, how much have you been bothered by emotional problems such as feeling anxious, depressed, irritable, sad or downhearted, and blue?: not at all During the past 4 weeks, has your physical & emotional health limited your social activities with family, friends, neighbors, or groups?: not at all During the past 4 weeks, how much bodily pain have you generally had?: very mild pain During the past 4 weeks, was someone available to help you if you needed & wanted help?: yes, as much as I wanted During the past 4 weeks, what was the hardest physical activity you could do for at least 2 minutes?: heavy Can you get to places out of walking distance without help? (For eg., can you travel alone on buses, taxis or drive your car?): Yes Can you go shopping for groceries or clothes without someone's help?: Yes Can you prepare your own meals?: Yes Can you do your housework without help?: Yes Because of any health problems, do you need the help of another person with your personal care needs such as eating, bathing, dressing or getting around the house?: No Can you handle your own money without help?: Yes During the past 4 weeks, how would you rate your health in general?: good During the past 4 weeks how have things been going for you?: pretty well Are you having difficulties driving your car?: no Do you always fasten your seat belt when you are in a car?: yes, usually During past 4 weeks, have you been bothered by the following: never: Falling or dizzy when standing up, Sexual problems?, Trouble eating well?, Teeth or denture problems?, Problems using the telephone? and Tiredness or fatigue? Have you fallen 2 or more times in the past year?: No Are you afraid of falling?: No Are you a smoker?: no During the past 4 weeks, how many drinks of wine, beer, or other alcoholic beverages did you have?: 2-5 drinks per week Do you exercise for about 20 minutes 3 or more times a week?: yes, some of the time Have you been given information to help with the following?: yes: Hazards in your house that might hurt you? and yes: Keeping track of your medications? How often do you have trouble taking medicines the way you have been told to take them?: I always take medicine as prescribed How confident are you that you can control & manage most of your health problems?: very confident What is your race?: White Mini Mental State Exam (MMSE) Orientation What is the (year) (season) (date) (day) (month)?: year, season, date, day and month Where are we (state) (county) (town or city) (hospital) (floor)?: state, county, town or city, hospital/clinic and floor Score Score: 10 Activity of Daily Living Bathing - sponge bath, tub bath or shower: receives no assistance (gets in/out by self, if usual bathing means Dressing - getting clothes from closets & drawers, including inner/outer garments & fasteners.: gets clothes & gets completely dressed without help Toileting - going to the 'toilet room' for urine/bowel elimination & cleaning self/arranging clothes: goes to toilet room, cleans self, arranges clothes without help Transfer: moves in & out of bed and chair without help (may use support object) Continence: controls urination/bowel movements completely by self Feeding: feeds self without help Total Score: 0 Information obtained from: patient Using telephone: independent Traveling: independent Shopping: independent Preparing meals: independent Housework: needs assistance Taking medicine: independent Managing money: independent PHQ-9 Over the last 2 weeks, how often have you been bothered by any of the following problems? 1. Little interest or pleasure in doing things: not at all 2. Feeling down, depressed, or hopeless: not at all 3. Trouble falling or staying asleep, or sleeping too much: not at all 4. Feeling tired or having little energy: not at all 5. Poor appetite or overeating: not at all 6. Feeling bad about yourself - or that you are a failure or have let yourself or your family down: not at all 7. Trouble concentrating on things, such as reading the newspaper or watching television: not at all 8. Moving or speaking so slowly that other people could have noticed. Or the opposite - being so fidgety or restless that you have been moving around a lot more than usual: not at all 9. Thoughts that you would be better off or of hurting yourself in some way: not at all Total score: 0 Depression Screening Interpretation: Negative Depression Screening Done: Yes 41560 - PHQ-9 Billing: Yes Source: Developed by Drs. Drake Alex, Day Marion, Yariel Jeff and colleagues, with an educational viral from [employer]. Review of Systems Const Denies chills and Denies fever(s) ENT Denies epistaxis and Denies nasal discharge Card Denies chest pain Resp Denies chest congestion, Denies cough and Denies hemoptysis GI Denies diarrhea and Denies nausea Skin/Breast Denies rash Neuro Reports no additional complaints Psych Reports no additional complaints Endo Reports no additional complaints Physical Exam Vital Signs: Last Vital Signs Pulse 82 07/24/24 08:53 BP 110/62 07/24/24 08:53 Pulse Ox 94 07/24/24 08:53 Oxygen Delivery Method Room Air 07/24/24 08:53 BMI result Body Mass Index 23.0 Const General: cooperative, comfortable and no acute distress Orientation/consciousness: patient oriented x3 HEENT Head: Yes normocephalic Eyes General: appearance normal, both eyes and all related structures Neck Other: Supple Neck: Yes supple Resp Effort & Inspection: normal respiratory effort, no cough and no stridor Cardio Rhythm: regular rhythm Heart sounds: S1 normal heart sound present and S2 normal heart sound present Skin General skin exam: turgor normal Neuro Other: Motor sensory intact General: patient oriented x3, tone normal and moves all extremities Psych Other: Normal effect, speech clear Assessment & Plan Assessment & Plan (1) Medicare annual wellness visit, subsequent: Code(s): Z00.00 - Encounter for general adult medical examination without abnormal findings (2) Macrocytic anemia: Code(s): D53.9 - Nutritional anemia, unspecified (3) B12 deficiency: Code(s): E53.8 - Deficiency of other specified B group vitamins (4) Osteopenia of spine: Code(s): M85.88 - Other specified disorders of bone density and structure, other site (5) Vitamin D deficiency: Code(s): E55.9 - Vitamin D deficiency, unspecified (6) Other specified hypothyroidism: Code(s): E03.8 - Other specified hypothyroidism (7) Lipid disorder: Code(s): E78.9 - Disorder of lipoprotein metabolism, unspecified (8) Impaired fasting blood sugar: Code(s): R73.01 - Impaired fasting glucose (9) Hypertension, essential: Code(s): I10 - Essential (primary) hypertension (10) Nephropathy: Code(s): N28.9 - Disorder of kidney and ureter, unspecified (11) Age related osteoporosis: Code(s): M81.0 - Age-related osteoporosis without current pathological fracture Qualifiers: Presence of current pathological fracture: unspecified Qualified Code(s): M81.0 - Age-related osteoporosis without current pathological fracture Plan Health Maintenance - Mammogram recently completed, following up on results. 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 - Inquiry about Vitamin D supplementation, discussed taking 1,000 IU - Blood pressure monitored, result is satisfactory; to continue managing with current medications. Blood pressure managed by Nephrology - Balance and fall risk assessment, advised monitoring for any changes. - Reviewed health care proxy status, updated as needed. Assessment and Plan 78-year-old female with a history of anemia, chronic kidney disease, and multiple chronic conditions presenting for a routine follow-up. 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 The patient is well-informed about her conditions, medication regimen, and ongoing health maintenance. The recent mammogram needs follow-up, and discussions occurred concerning the necessity of further colorectal screening. The patient's balance was assessed, and no falls were reported in the past year. 1. Anemia The patient has persistent anemia, likely secondary to chronic kidney disease. Hemoglobin levels have decreased slightly and will need re-evaluation. Discussed possible causes and reinforced adherence to current therapeutic plans from her lyft driver. Ordered re-evaluation through repeat labs and coordination with renal specialist as needed. 2. Hyperlipidemia Continued management with statin therapy. No immediate changes to her lipid- lowering regimen unless new lab results necessitate an adjustment. 3. Hypothyroidism Management with levothyroxine. No immediate issues concerning thyroid function were raised, indicating stability with current dosage. 4. Venous Insufficiency Patient observed with superficial venous prominence and discoloration related to increased vascular pressure. Monitoring for further symptoms or exacerbation suggested. Potential referral to vascular specialist if condition deteriorates. 5. Chronic Kidney Disease Monitoring for progression of the disease, with recent lab follow-ups and coordination with a nephrology team. Addressed concern about anemia correlating with renal status. Continued the patient's current medicine regimen, including blood pressure management. 6. Hypertension Controlled with current treatment regimen. Blood pressure measurement was satisfactory at this visit. Continue management as per nephrology consultation and adjust as needed, with regular monitoring. Orders: Orders Comprehensive Buckner. Panel Fast Today D53.9 - Nutritional anemia, unspecified, E03.8 - Other specified hypothyroidism, E53.8 - Deficiency of other specified B group vitamins, E55.9 - Vitamin D deficiency, unspecified, E78.9 - Disorder of lipoprotein metabolism, unspecified, I10 - Essential (primary) hypertension, M85.88 - Other specified disorders of bone density and structure, other site, R73.01 - Impaired fasting glucose Complete Blood Count Auto Diff Today D53.9 - Nutritional anemia, unspecified, E03.8 - Other specified hypothyroidism, E53.8 - Deficiency of other specified B group vitamins, E55.9 - Vitamin D deficiency, unspecified, E78.9 - Disorder of lipoprotein metabolism, unspecified, I10 - Essential (primary) hypertension, M85.88 - Other specified disorders of bone density and structure, other site, R73.01 - Impaired fasting glucose Vitamin D 25-OH (D2 and D3) Today D53.9 - Nutritional anemia, unspecified, E03.8 - Other specified hypothyroidism, E53.8 - Deficiency of other specified B group vitamins, E55.9 - Vitamin D deficiency, unspecified, E78.9 - Disorder of lipoprotein metabolism, unspecified, I10 - Essential (primary) hypertension, M85.88 - Other specified disorders of bone density and structure, other site, R73.01 - Impaired fasting glucose Lipid Panel Today D53.9 - Nutritional anemia, unspecified, E03.8 - Other specified hypothyroidism, E53.8 - Deficiency of other specified B group vitamins, E55.9 - Vitamin D deficiency, unspecified, E78.9 - Disorder of lipoprotein metabolism, unspecified, I10 - Essential (primary) hypertension, M85.88 - Other specified disorders of bone density and structure, other site, R73.01 - Impaired fasting glucose Vitamin B12 Today D53.9 - Nutritional anemia, unspecified, E03.8 - Other specified hypothyroidism, E53.8 - Deficiency of other specified B group vitamins, E55.9 - Vitamin D deficiency, unspecified, E78.9 - Disorder of lipoprotein metabolism, unspecified, I10 - Essential (primary) hypertension, M85.88 - Other specified disorders of bone density and structure, other site, R73.01 - Impaired fasting glucose TSH reflex Free T4 Today D53.9 - Nutritional anemia, unspecified, E03.8 - Other specified hypothyroidism, E53.8 - Deficiency of other specified B group vitamins, E55.9 - Vitamin D deficiency, unspecified, E78.9 - Disorder of lipoprotein metabolism, unspecified, I10 - Essential (primary) hypertension, M85.88 - Other specified disorders of bone density and structure, other site, R7 3.01 - Impaired fasting glucose Quality Reporting (2020) Depression/Bipolar (159/160/161/177) PHQ-9: Total score: 0 Coding Level of Care Code Medicare Subsequent (G0439) Est Pt Level 4 (74239) Diagnoses Medicare annual wellness visit, subsequent Z00.00 Macrocytic anemia D53.9 B12 deficiency E53.8 Osteopenia of spine M85.88 Vitamin D deficiency E55.9 Other specified hypothyroidism E03.8 Lipid disorder E78.9 Impaired fasting blood sugar R73.01 Hypertension, essential I10 Nephropathy N28.9 Age related osteoporosis, unspecified pathological fracture presence M81.0 Presence of current pathological fracture: unspecified Additional Codes PHQ-9 - 05282 - PHQ-9 Billing: Yes ([id number])
== END 2024-07-24 09:20 | disposition home or self-care (01) ==
PROVIDERS: PCP Internal Medicine; Visit Provider Internal Medicine
DX: Z00.00 Encounter for general adult medical examination without abnormal findings (principal); D53.9 Nutritional anemia, unspecified; E53.8 Deficiency of other specified B group vitamins; M85.88 Other specified disorders of bone density and structure, other site; E55.9 Vitamin D deficiency, unspecified; E03.8 Other specified hypothyroidism; E78.9 Disorder of lipoprotein metabolism, unspecified; R73.01 Impaired fasting glucose; I10 Essential (primary) hypertension; N28.9 Disorder of kidney and ureter, unspecified; M81.0 Age-related osteoporosis without current pathological fracture

== ENCOUNTER → 2024-07-24 08:51 | Outpatient (BNVA) | payer MEDICARE, SELFPAY | PROVIDERS: PCP Internal Medicine; Visit Provider Internal Medicine | DX: D53.9 Nutritional anemia, unspecified (principal); E53.8 Deficiency of other specified B group vitamins; E55.9 Vitamin D deficiency, unspecified; M85.88 Other specified disorders of bone density and structure, other site; E03.8 Other specified hypothyroidism; E78.9 Disorder of lipoprotein metabolism, unspecified; R73.01 Impaired fasting glucose; I10 Essential (primary) hypertension; N28.9 Disorder of kidney and ureter, unspecified; M81.0 Age-related osteoporosis without current pathological fracture | CPT/HCPCS: 96127; 99212 ==

== ENCOUNTER 2025-02-08 09:40 | Outpatient (REF) | payer MEDICARE, SELFPAY ==
[2025-02-08 12:57] LABS: MANUAL DIFF FLAG NO
[2025-02-08 13:17] LABS: Basophils Percent Auto 0.6 % (0-2); Eosinophils Absolute Auto 0.1 X10*3/uL (0.0-0.4); Hematocrit 32.1 % (37.0-47.0); Hemoglobin 10.5 g/dl (12.0-16.0); Imm Gran Abs Auto 0.02 X10*3/uL (0.00-0.03); Imm Gran Pct Auto 0.4 % (0.0-0.4); Lymphocytes Absolute Auto 1.1 X10*3/uL (1.2-4.9); Lymphocytes Percent Auto 20.5 % (20-40); Mean Corpuscular HGB Conc 32.7 g/dl (31.0-35.0); Mean Corpuscular Hemoglobin 34.4 pg (27.0-33.0); Mean Corpuscular Volume 105.2 fL (80.0-98.0); Mean Platelet Volume 10.3 fL (9.4-12.3); Monocytes Absolute Auto 0.7 X10*3/uL (0.1-1.2); Monocytes Percent Auto 12.9 % (2-11); Neutrophils Absolute Auto 3.3 x10*3/uL (2.0-8.3); Neutrophils Percent Auto 63.6 % (45-73); Platelet Count 173 X10*3/uL (160-400); Red Blood Count 3.05 X10*6/uL (4.20-5.50); Red Cell Distribution Width 13.8 % (11.0-16.0); White Blood Count 5.1 X10*3/uL (4.8-10.8)
[2025-02-08 13:21] LABS: Alanine Aminotransferase 23 U/L (0-31); Albumin Level 4.4 g/dL (3.5-5.0); Alkaline Phosphatase 68 U/L (39-117); Anion Gap 14 (12-20); Aspartate Amino Transferase 51 U/L (5-31); Bilirubin Total 0.5 mg/dL (0.0-1.0); Blood Urea Nitrogen 19 mg/dL (9-16); Calcium 9.6 mg/dL (8.4-10.2); Carbon Dioxide 25 mmol/L (22-29); Chloride 102 mmol/L (96-108); Estimated Glomerular Filt Rate 43; Glucose Random 104 mg/dL (60-115); Potassium 4.5 mmol/L (3.3-5.1); Sodium 136 mmol/L (135-145); Total Protein 6.9 g/dL (6.5-8.0)
[2025-02-08 13:52] LABS: Vitamin B12 505 pg/mL (200-900)
[2025-02-12 16:48] LABS: Vitamin D 25-OH, D2 <4 ng/mL; Vitamin D 25-OH, D3 60 ng/mL; Vitamin D 25-OH, Total 60 ng/mL (30-100)
== END 2025-02-08 09:41 | disposition home or self-care (01) ==
LOC: HO.HMGCLDS 09:40
PROVIDERS: PCP Internal Medicine; Visit Provider Internal Medicine
DX: I10 Essential (primary) hypertension (principal); R73.01 Impaired fasting glucose; D64.9 Anemia, unspecified; E78.9 Disorder of lipoprotein metabolism, unspecified; E03.8 Other specified hypothyroidism; E55.9 Vitamin D deficiency, unspecified; E53.8 Deficiency of other specified B group vitamins; N28.9 Disorder of kidney and ureter, unspecified; M81.0 Age-related osteoporosis without current pathological fracture; Z79.899 Other long term (current) drug therapy
CPT/HCPCS: 36415; 80053; 82306; 82607; 85025; 96127; 99212

== ENCOUNTER 2025-02-08 09:40 | Outpatient (AMB) | payer MEDICARE, SELFPAY ==
--- NOTE | 2025-02-08 09:43 | MHC.PC.OV ---
Vital Signs 02/08/25 09:49 Height 5 ft 3 in Weight 133 lb 8 oz BMI 23.6 BP 156/98 H Blood Pressure Location Rt brachial Position Sitting Respiration 16 Pulse 83 Pulse Source Pulse Oximeter Pulse Oximetry (%) 95 Oxygen Delivery Method Room Air Intake Visit Reasons: 6m f/u Allergies No Known Allergies Allergy (Verified 02/08/25 09:56) Medication List - Last Reconciled 02/08/25 by Clara Rowan MD ascorbic acid (vitamin C) 500 mg PO DAILY aspirin (Adult Aspirin Regimen) 81 mg PO DAILY atenolol 50 mg PO DAILY 90 days atenolol 25 mg PO DAILY calcium 1,200 mg PO DAILY cyanocobalamin (vitamin B-12) 1,000 mcg PO .qod 90 days furosemide 20 mg PO DAILY levothyroxine 88 mcg PO QAM losartan-hydrochlorothiazide 100-25 mg 1 tab PO DAILY omega-3 fatty acids (Fish Oil Concentrate) 1,000 mg PO DAILY simvastatin 20 mg PO QPM 90 days sodium bicarbonate 650 mg PO BID Tobacco use date assessed: 02/08/25 Fall risk assessment: No Falls in past year Last assessed Fall Risk: 02/08/25 Dental Screening Dental Screen Date: 02/08/25 Did you have a dental visit in the last 12 months?: Yes Did you have a dental problem in the last 6 months where you did not have access to dental care?: No Was dental information given to patient?: Patient has dentist HPI 6m f/u HPI Details History - The patient is a 79-year-old female presenting for a routine follow-up appointment with concerns regarding medication changes. - Recent medication changes include the addition of sodium bicarbonate 650 mg twice a day by her renal specialist. - Her emergency manager intends her blood pressure to be well-regulated, prescribing atenolol, increasing the dosage to 75 mg total per day, with 50 mg previously prescribed and an additional 25 mg daily. - She experiences significant stress at home while caring for her , noting that her life is currently very busy with frequent driving to commitments. - She reports dissatisfaction with the service at an endocrinology office [facility] prior, with delayed communication affecting her osteoporosis management. - She mentioned being considered for Reclast infusion; however, her blood pressure exceeded acceptable limits during a previous appointment, leading to rescheduling. - After lab results suggested she was not an ideal candidate for Reclast, the patient expressed interest in switching to an oral osteoporosis medication such as Fosamax. - No gastrointestinal reflux or stomach problems reported, which were considerations for potential oral medication. - Discussed her reasoning for considering care transitions to [place], particularly to manage nephrology needs closer to home. Medical History: - Chronic Kidney Disease, Stage 2 - Hypertension - Osteoporosis - Vitamin D deficiency Social History: - The patient is experiencing significant life stress related to family responsibilities, particularly stressing over the care requirements associated with her 's medical needs. - Current residence in [place]; considerations for changing medical care to [place], closer to her home for convenience. - The patient mentions regular communication with [facility] for her [facility] and relies on the services they provide. Medications - Sodium bicarbonate 650 mg twice daily (indication: renal support/acid control) - Atenolol 75 mg daily in total (indication: blood pressure management) - Vitamin D supplements (indication: Vitamin D deficiency) - B12 supplements (administration: Tuesday, Tuesday, Tuesday) - frusemide - losartan hydrochlorothiazide - atorvastatin Problem List - Chronic Kidney Disease, Stage 2 - Essential Hypertension - Osteoporosis - Vitamin D deficiency Diagnostic results - Lab tests in May demonstrated a creatinine level of 1.34 with improved kidney function. - GFR measured at 41, indicating Stage 2 Chronic Kidney Disease in July. - Previous labs indicated low vitamin D levels, for which supplementation continues. [place] [facility] - Patient currently under nephrology care with nurse practitioner Judie Quezada at [facility]. - Engaged with endocrinology concerning osteoporosis treatment but plans to transition care to a location closer to home. Patient Instructions - Continue current medication regimen, including sodium bicarbonate and atenolol. - labs to be done order placed - I will look into Fosamax - Consider transitioning care to [place] for more consolidated and convenient medical care.. - Practice self-care and reach out for assistance amidst significant caregiving responsibilities. Review of Systems General: No fever no chills neurological: No headaches no dizziness ear nose throat: No sore throat no hearing difficulty no ear pain cardiovascular: No syncope, no chest pain, no palpitations gastrointestinal: No nausea vomiting or diarrhea endocrine: No polyuria polydipsia no heat intolerance genitourinary: No dysuria skin: No new complaints Physical Exam general: No acute distress HEENT: No acute findings neck: Supple respiratory system: Lungs are clear, able to talk in full sentences, no audible wheeze, no stridor cardiovascular: S1-S2 RRR, heart is fine gastrointestinal: No pain, no nausea, no vomiting extremities: No new findings, no swelling of ankles PULP ROLLER: Alert, awake, oriented x3, motor sensory intact skin: Normal turgor PFSH Medical History Hypothyroid HTN (hypertension) Surgical History History of right hip replacement Hx of endarterectomy Hx of carpal tunnel repair Hx of cholecystectomy Hx of tubal ligation Hx of tonsillectomy Family History Family/Other Melanoma Brother Prostate cancer Maternal Grandmother Diabetes CHF (congestive heart failure) Mother CHF (congestive heart failure) Family/Other Ulcerative colitis Social History [facility] Alcohol intake: current Alcohol intake frequency: 0-2 drinks per day Alcohol type: hard liquor Patient Tobacco Use Status: Never used Tobacco e-Cigarette/Vaping Use: Never Used Second Hand Smoke Exposure: No service: No Current occupational status: retired 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 1. Little interest or pleasure in doing things: not at all 2. Feeling down, depressed, or hopeless: not at all 3. Trouble falling or staying asleep, or sleeping too much: not at all 4. Feeling tired or having little energy: several days 5. Poor appetite or overeating: not at all 6. Feeling bad about yourself - or that you are a failure or have let yourself or your family down: not at all 7. Trouble concentrating on things, such as reading the newspaper or watching television: not at all 8. Moving or speaking so slowly that other people could have noticed. Or the opposite - being so fidgety or restless that you have been moving around a lot more than usual: several days 9. Thoughts that you would be better off or of hurting yourself in some way: not at all Total score: 2 Depression Screening Interpretation: Negative Depression Screening Done: Yes 25135 - PHQ-9 Billing: Yes Source: Developed by Drs. Drake Alex, Day Marion, Yariel Jeff and colleagues, with an educational viral from [employer]. Thrive Questionnaire Date Thrive assessed: 02/08/25 I am a: Patient What is your living situation today?: I have a steady place to live Within the past 12 months, did the food you bought not last and you didn't have the money to get more?: I choose not to answer this question Within the past 12 months, did you worry whether your food would run out before you got money to buy more?: Never true Do you have trouble paying for medicines?: I choose not to answer this question Do you have trouble getting transportation to medical appointments?: No Do you have trouble paying your heating and electricity bill?: No Do you have trouble taking care of your child, family member or friend?: No Do you have trouble with day-to-day activities such as bathing, preparing meals, shopping, managing finances, etc.?: No Are you currently unemployed and looking for a job?: No Are you interested in more education?: No Please select the resources that you would like help with: None Currently or been in a relationship where the following occur: I choose not to answer THRIVE Score: 0 AUDIT C Alcohol Use Questionnaire (AUDIT-C) 1. How often do you have a drink containing alcohol?: Monthly or less 2. How many drinks containing alcohol do you have on a typical day when you are drinking?: 1 or 2 3. How often do you have six or more drinks on one occasion?: Less than monthly Total Score: 2 Score Reviewed/Action Taken: Yes SALMA-7 AMB Questionnaire SALMA-7 Date SALMA - 7 assessed: 02/08/25 Feeling nervous, anxious, or on edge: 0 = Not at all Not being able to stop or control worryin = Not at all Worrying too much about different things: 0 = Not at all Trouble relaxin = Not at all Being so restless that it is hard to sit still: 0 = Not at all Becoming easily annoyed or irritable: 0 = Not at all Feeling afraid as if something awful might happen: 0 = Not at all Total SALMA-7 score (0-4 normal; 5-9 mild; 10-14 moderate; 15-21 severe): 0 Source: Developed by Drs. Drake Alex, Day Marion, Yariel Jeff and colleagues, with an educational viral from [employer]. SALMA-7 Assessment Billing SALMA-7 Assessment Tool: SALMA-7 Assessment 26738 Physical exam (Primary Care) Vital Signs: Last Vital Signs Pulse 83 02/08/25 09:49 Resp 16 02/08/25 09:49 BP 156/98 H 02/08/25 09:49 Pulse Ox 95 02/08/25 09:49 Oxygen Delivery Method Room Air 02/08/25 09:49 BMI result Body Mass Index 23.6 Tobacco/Smoking Status: Tobacco use Status Tobacco use date assessed 02/08/25 02/08/25 09:56 Patient Tobacco Use Status Never used Tobacco 02/08/25 09:44 e-Cigarette/Vaping Use Never Used 02/08/25 09:44 PHQ-9: PHQ-9 Score PHQ-9: Total score 2 02/08/25 10:27 Depression Screening Interpretation: Negative Thrive Assessment: Date of Thrive Assessment Date Thrive assessed 02/08/25 02/08/25 09:57 Currently or been in a relationship where the following occur: I choose not to answer Coding Level of Care Code Est Pt Level 4 (99596) Complex EM visit Add On G2211 Diagnoses Hypertension, essential I10 Impaired fasting blood sugar R73.01 Low hemoglobin D64.9 Lipid disorder E78.9 Other specified hypothyroidism E03.8 Vitamin D deficiency E55.9 B12 deficiency E53.8 Nephropathy N28.9 Age related osteoporosis, unspecified pathological fracture presence M81.0 Presence of current pathological fracture: unspecified Additional Codes SALMA-7 Assessment Billing - SALMA-7 Assessment Tool: SALMA-7 Assessment 14816 ([id number]) PHQ-9 - 06405 - PHQ-9 Billing: Yes ([id number]) Assessment & Plan Assessment & Plan (1) Hypertension, essential: Code(s): I10 - Essential (primary) hypertension Category: Medical (2) Impaired fasting blood sugar: Code(s): R73.01 - Impaired fasting glucose Category: Medical (3) Low hemoglobin: Code(s): D64.9 - Anemia, unspecified Category: Medical (4) Lipid disorder: Code(s): E78.9 - Disorder of lipoprotein metabolism, unspecified Category: Medical (5) Other specified hypothyroidism: Code(s): E03.8 - Other specified hypothyroidism Category: Medical (6) Vitamin D deficiency: Code(s): E55.9 - Vitamin D deficiency, unspecified Category: Medical (7) B12 deficiency: Code(s): E53.8 - Deficiency of other specified B group vitamins Category: Medical (8) Nephropathy: Code(s): N28.9 - Disorder of kidney and ureter, unspecified Category: Medical (9) Age related osteoporosis: Code(s): M81.0 - Age-related osteoporosis without current pathological fracture Category: Medical Qualifiers: Presence of current pathological fracture: unspecified Qualified Code(s): M81.0 - Age-related osteoporosis without current pathological fracture Plan History - The patient is a 79-year-old female presenting for a routine follow-up appointment with concerns regarding medication changes. - Recent medication changes include the addition of sodium bicarbonate 650 mg twice a day by her renal specialist. - Her emergency manager intends her blood pressure to be well-regulated, prescribing atenolol, increasing the dosage to 75 mg total per day, with 50 mg previously prescribed and an additional 25 mg daily. - She experiences significant stress at home while caring for her , noting that her life is currently very busy with frequent driving to commitments. - She reports dissatisfaction with the service at an endocrinology office [facility] prior, with delayed communication affecting her osteoporosis management. - She mentioned being considered for Reclast infusion; however, her blood pressure exceeded acceptable limits during a previous appointment, leading to rescheduling. - After lab results suggested she was not an ideal candidate for Reclast, the patient expressed interest in switching to an oral osteoporosis medication such as Fosamax. - No gastrointestinal reflux or stomach problems reported, which were considerations for potential oral medication. - Discussed her reasoning for considering care transitions to [place], particularly to manage nephrology needs closer to home. Medical History: - Chronic Kidney Disease, Stage 2 - Hypertension - Osteoporosis - Vitamin D deficiency Social History: - The patient is experiencing significant life stress related to family responsibilities, particularly stressing over the care requirements associated with her 's medical needs. - Current residence in [place]; considerations for changing medical care to [place], closer to her home for convenience. - The patient mentions regular communication with [facility] for her ?[facility] care and relies on the services they provide. Medications - Sodium bicarbonate 650 mg twice daily (indication: renal support/acid control) - Atenolol 75 mg daily in total (indication: blood pressure management) - Vitamin D supplements (indication: Vitamin D deficiency) - B12 supplements (administration: Tuesday, Tuesday, Tuesday) - frusemide - losartan hydrochlorothiazide - atorvastatin Problem List - Chronic Kidney Disease, Stage 2 - Essential Hypertension - Osteoporosis - Vitamin D deficiency - pre diabetes - anemia of chronic disease Diagnostic results - Lab tests in May demonstrated a creatinine level of 1.34 with improved kidney function. - GFR measured at 41, indicating Stage 2 Chronic Kidney Disease in July. - Previous labs indicated low vitamin D levels, for which supplementation continues. [place] [facility] - Patient currently under nephrology care with nurse practitioner Judie Quezada at [facility]. - Engaged with endocrinology concerning osteoporosis treatment but plans to transition care to a location closer to home. Patient Instructions - Continue current medication regimen, including sodium bicarbonate and atenolol. - labs to be done order placed - I will look into Fosamax - Consider transitioning care to [place] for more consolidated and convenient medical care.. - Practice self-care and reach out for assistance amidst significant caregiving responsibilities. Orders: Orders Comprehensive Met. Panel Today D64.9 - Anemia, unspecified, E03.8 - Other specified hypothyroidism, E53.8 - Deficiency of other specified B group vitamins, E55.9 - Vitamin D deficiency, unspecified, E78.9 - Disorder of lipoprotein metabolism, unspecified, I10 - Essential (primary) hypertension, M81.0 - Age-related osteoporosis without current pathological fracture, N28.9 - Disorder of kidney and ureter, unspecified, R73.01 - Impaired fasting glucose Vitamin D 25-OH (D2 and D3) Today D64.9 - Anemia, unspecified, E03.8 - Other specified hypothyroidism, E53.8 - Deficiency of other specified B group vitamins, E55.9 - Vitamin D deficiency, unspecified, E78.9 - Disorder of lipoprotein metabolism, unspecified, I10 - Essential (primary) hypertension, M81.0 - Age-related osteoporosis without current pathological fracture, N28.9 - Disorder of kidney and ureter, unspecified, R73.01 - Impaired fasting glucose Complete Blood Count Auto Diff Today D64.9 - Anemia, unspecified, E03.8 - Other specified hypothyroidism, E53.8 - Deficiency of other specified B group vitamins, E55.9 - Vitamin D deficiency, unspecified, E78.9 - Disorder of lipoprotein metabolism, unspecified, I10 - Essential (primary) hypertension, M81.0 - Age-related osteoporosis without current pathological fracture, N28.9 - Disorder of kidney and ureter, unspecified, R73.01 - Impaired fasting glucose Vitamin B12 Today D64.9 - Anemia, unspecified, E03.8 - Other specified hypothyroidism, E53.8 - Deficiency of other specified B group vitamins, E55.9 - Vitamin D deficiency, unspecified, E78.9 - Disorder of lipoprotein metabolism, unspecified, I10 - Essential (primary) hypertension, M81.0 - Age-related osteoporosis without current pathological fracture, N28.9 - Disorder of kidney and ureter, unspecified, R73.01 - Impaired fasting glucose Referrals Nephrology Referral N28.9 - Disorder of kidney and ureter, unspecified
[2025-02-08 09:49] VITALS: BP 156/98; PULSE 83; RESP 16; O2SAT 95; BMI 23.6
== END 2025-02-08 10:30 | disposition home or self-care (01) ==
LOC: HO.HMCC 09:40
PROVIDERS: PCP Internal Medicine; Visit Provider Internal Medicine
DX: I10 Essential (primary) hypertension (principal); R73.01 Impaired fasting glucose; D64.9 Anemia, unspecified; E78.9 Disorder of lipoprotein metabolism, unspecified; E03.8 Other specified hypothyroidism; E55.9 Vitamin D deficiency, unspecified; E53.8 Deficiency of other specified B group vitamins; N28.9 Disorder of kidney and ureter, unspecified; M81.0 Age-related osteoporosis without current pathological fracture

== ENCOUNTER 2025-04-23 12:46 | Outpatient (AMB) | payer MEDICARE, SELFPAY ==
[2025-04-23 12:48] VITALS: BP 160/80; PULSE 86; O2SAT 97; BMI 22.7
--- NOTE | 2025-04-23 12:48 | A.OFFPC_ITS ---
Vital Signs 04/23/25 12:48 Height 5 ft 3 in Weight 128 lb BMI 22.7 BP 160/80 H Blood Pressure Location Lt brachial Position Sitting Pulse 86 Pulse Source Pulse Oximeter Pulse Oximetry (%) 97 Intake Visit Reasons: Lower back pain Allergies No Known Allergies Allergy (Verified 04/23/25 12:50) Medication List - Last Reconciled 04/23/25 by Clara Rowan MD ascorbic acid (vitamin C) 500 mg PO DAILY aspirin (Adult Aspirin Regimen) 81 mg PO DAILY calcium 1,200 mg PO DAILY cholecalciferol (vitamin D3) 50 mcg PO DAILY cyanocobalamin (vitamin B-12) 1,000 mcg PO .qod 90 days levothyroxine 75 mcg PO DAILY losartan 100 mg PO DAILY nifedipine ER 30 mg PO DAILY simvastatin 20 mg PO QPM 90 days sodium bicarbonate 650 mg PO BID Tobacco use date assessed: 02/08/25 Fall risk assessment: No Falls in past year Last assessed Fall Risk: 04/23/25 Dental Screening Dental Screen Date: 02/08/25 HPI Lower back pain HPI Details Patient is a 79-year-old female came in today for hospital discharge follow-up dated 04/06/2025 [facility] Patient have history of chronic kidney disease stage 3, hypertension, chronic back pain, hypothyroidism Presented to emergency room for uncontrolled hypertension Daughter was with the patient and gave the history that patient has been having back pain off , which is progressively getting worse Patient has been self medicating herself with pain medication and daily alcohol use. Last drink was 2 days ago Patient stated that she has not taken her blood pressure medication in several days and it is unclear if it was due to forgetting or not wanting to take the medication. Patient denied chest pain or shortness a breath there was no abdominal pain nausea vomiting or diarrhea Stated that she has not experienced alcohol withdrawal in the past Her medications are levothyroxine 100 mcg laxatives pantoprazole simvastatin 20 mg along with Bp meds Labs: Hemoglobin 11.3 hematocrit 32.4 troponin 57 BUN 26 Creatinine 1.24 Alkaline phosphatase 106 AST 97 ALT 56 bilirubin 1.3 TSH 25.[address] head showed no acute intracranial pathology Patient was given IV fluid, phenobarbital, thiamine She felt better and was no longer tremulous Alcohol level was negative She had hyponatremia for which she was given IV fluids Repeat tropes 2 hours later was 57 UA was negative for infection She was admitted in hospital with a diagnosis of alcohol intoxication withdrawal Hyponatremia Hypothyroidism and weakness Her blood pressure today is 160 x 80 went to rehab on 04/06/25 went home from rehab 04/12/2025 ran out of her procardia 2 days ago and need refill stress-related alcohol dependency. is over, she is off Naltrexon as well Hypertension: - Patient reports historically well-cont rolled blood pressure during rehabilitation, readings in the 120s/60s-70s range. - Recently, blood pressure was reported as very high, exacerbated by anxiety and stress. - Last hospitalization was followed by r from April 06 to April 12, after which patient was discharged. - Patient reports cessation of nifedipin e due to running out of medication two days prior to the visit. - Current hypertension management includ es losartan, previously included nifedipine and atenolol (discontinued). Non-compliance with medication: - Patient admits to medication non-compl iance due to stress and hectic summer activities. - Patient acknowledges missing doses and delayed engagement with nephrology and endocrine appointments. - She plans to reschedule appointments a nd acknowledges the need for medication consistency. Stress and alcohol dependency: - Undergoing significant stress caring f or terminally ill . - Reports prior alcohol consumption due to stress, recently ceased drinking and reports cessation of naltrexone. Social History: - Marital status: , caregiving fo r terminally ill . - Reports high stress levels due to care giving responsibilities. - Daughter identified as a vital support system. - Previous substance use: alcohol, cease d due to stress and treatment with nal trexone. 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 Problem List - Essential Hypertension - History of Alcohol Dependency - Low Sodium Levels - Angiomyolipoma (AML) of the left [facility] / rehab discharge follow up Patient Instructions - Continue taking prescribed medications as directed. - [facility] - Return for a blood test in six weeks. for TSH and sodium , b 12 - Continue Vitamin B12 regimen as advise d. - Reschedule any missed appointments wit h specialists. - Do not stop or miss medications to jonathan id complications. Review of Systems - General: No fever no chills - Neurological: No headaches no dizziness - Ear nose throat: No sore throat no hearing difficulty no ear pain - Cardiovascular: No syncope, no chest pain, no palpitations - Gastrointestinal: No nausea vomiting or diarrhea - Endocrine: No polyuria polydipsia no heat intolerance - Genitourinary: No dysuria , no blood in urine Physical Exam General: No acute distress HEENT: No acute findings Neck: Supple Respiratory system: Lungs are clear, able to talk in full sentences, no audible wheeze Cardiovascular: S1-S2 regular in rate and rhythm, heart is fine Gastrointestinal: No pain Extremities: No swelling of ankles, no new findings STONECUTTER: Alert awake oriented x3 use cane Skin: Normal turgor PFSH Medical History Hypothyroid HTN (hypertension) Surgical History History of right hip replacement Hx of endarterectomy Hx of carpal tunnel repair Hx of cholecystectomy Hx of tubal ligation Hx of tonsillectomy Family History Family/Other Melanoma Brother Prostate cancer Maternal Grandmother Diabetes CHF (congestive heart failure) Mother CHF (congestive heart failure) Family/Other Ulcerative colitis Social History Housing: Condominium Alcohol intake: current Alcohol intake frequency: 0-2 drinks per day Alcohol type: hard liquor Patient Tobacco Use Status: Never used Tobacco e-Cigarette/Vaping Use: Never Used Second Hand Smoke Exposure: No service: No Current occupational status: retired 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 Cognitive needs: No Hearing needs: No Vision needs: Yes Questionnaire Thrive Questionnaire Date Thrive assessed: 01/15/25 I am a: Patient What is your living situation today?: I have a steady place to live Within the past 12 months, did the food you bought not last and you didn't have the money to get more?: I choose not to answer this question Within the past 12 months, did you worry whether your food would run out before you got money to buy more?: Never true Do you have trouble paying for medicines?: I choose not to answer this question Do you have trouble getting transportation to medical appointments?: No Do you have trouble paying your heating and electricity bill?: No Do you have trouble taking care of your child, family member or friend?: No Do you have trouble with day-to-day activities such as bathing, preparing meals, shopping, managing finances, etc.?: No Are you currently unemployed and looking for a job?: No Are you interested in more education?: No Please select the resources that you would like help with: None Currently or been in a relationship where the following occur: I choose not to answer THRIVE Score: 0 SALMA-7 AMB Questionnaire SALMA-7 Date SALMA - 7 assessed: 02/08/25 Source: Developed by Drs. Drake Alex, Day Marion, Yariel Jeff and colleagues, with an educational viral from [employer]. Physical exam (Primary Care) Vital Signs: Last Vital Signs Pulse 86 04/23/25 12:48 BP 160/80 H 04/23/25 12:48 Pulse Ox 97 04/23/25 12:48 BMI result Body Mass Index 22.7 Tobacco/Smoking Status: Tobacco use Status Tobacco use date assessed 02/08/25 04/23/25 12:51 Patient Tobacco Use Status Never used Tobacco 04/23/25 12:51 e-Cigarette/Vaping Use Never Used 04/23/25 12:51 Thrive Assessment: Date of Thrive Assessment Date Thrive assessed 01/15/25 04/23/25 12:51 Currently or been in a relationship where the following occur: I choose not to answer Coding Level of Care Code Est Pt Level 5 (49776) Diagnoses Hospital discharge follow-up Z09 Hypertension, essential I10 Impaired fasting blood sugar R73.01 Other specified hypothyroidism E03.8 Vitamin D deficiency E55.9 B12 deficiency E53.8 Nephropathy N28.9 Low sodium levels E87.1 History of alcohol abuse F10.11 Stress at home F43.9 Chronic back pain M54.9; G89.29 Balance problem R26.89 Ambulates with cane Z99.89 Time Spent (min) 40 Comment Reviewing hospital notes/labs/cmlm-uu-nvul/coordination of care Assessment & Plan Assessment & Plan (1) Hospital discharge follow-up: Code(s): Z09 - Encounter for follow-up examination after completed treatment for conditions other than malignant neoplasm Category: Medical (2) Hypertension, essential: Code(s): I10 - Essential (primary) hypertension Category: Medical (3) Impaired fasting blood sugar: Code(s): R73.01 - Impaired fasting glucose Category: Medical (4) Other specified hypothyroidism: Code(s): E03.8 - Other specified hypothyroidism Category: Medical (5) Vitamin D deficiency: Code(s): E55.9 - Vitamin D deficiency, unspecified Category: Medical (6) B12 deficiency: Code(s): E53.8 - Deficiency of other specified B group vitamins Category: Medical (7) Nephropathy: Code(s): N28.9 - Disorder of kidney and ureter, unspecified Category: Medical (8) Low sodium levels: Code(s): E87.1 - Hypo-osmolality and hyponatremia Category: Medical (9) History of alcohol abuse: Code(s): F10.11 - Alcohol abuse, in remission Category: Medical (10) Stress at home: Code(s): F43.9 - Reaction to severe stress, unspecified Category: Social Hx (11) Chronic back pain: Code(s): M54.9 - Dorsalgia, unspecified; G89.29 - Other chronic pain Category: Medical (12) Balance problem: Code(s): R26.89 - Other abnormalities of gait and mobility Category: Medical (13) Ambulates with cane: Code(s): Z99.89 - Dependence on other enabling machines and devices Category: Medical Plan Patient is a 79-year-old female came in today for hospital discharge follow-up dated 04/06/2025 [facility] Patient have history of chronic kidney disease stage 3, hypertension, chronic back pain, hypothyroidism Presented to emergency room for uncontrolled hypertension Daughter was with the patient and gave the history that patient has been having back pain off , which is progressively getting worse Patient has been self medicating herself with pain medication and daily alcohol use. Last drink was 2 days ago Patient stated that she has not taken her blood pressure medication in several days and it is unclear if it was due to forgetting or not wanting to take the medication. Patient denied chest pain or shortness a breath there was no abdominal pain nausea vomiting or diarrhea Stated that she has not experienced alcohol withdrawal in the past Her medications are levothyroxine 100 mcg laxatives pantoprazole simvastatin 20 mg along with Bp meds Labs: Hemoglobin 11.3 hematocrit 32.4 troponin 57 BUN 26 Creatinine 1.24 Alkaline phosphatase 106 AST 97 ALT 56 bilirubin 1.3 TSH 25.[address] head showed no acute intracranial pathology Patient was given IV fluid, phenobarbital, thiamine She felt better and was no longer tremulous Alcohol level was negative She had hyponatremia for which she was given IV fluids Repeat tropes 2 hours later was 57 UA was negative for infection She was admitted in hospital with a diagnosis of alcohol intoxication withdrawal Hyponatremia Hypothyroidism and weakness Her blood pressure today is 160 x 80 went to rehab on 04/06/25 went home from rehab 04/12/2025 ran out of her procardia 2 days ago and need refill stress-related alcohol dependency. is over, she is off Naltrexon as well Hypertension: - Patient reports historically well-controlled blood pressure during rehabilitation, readings in the 120s/60s-70s range. - Recently, blood pressure was reported as very high, exacerbated by anxiety and stress. - Last hospitalization was followed by rehab from April 06 to April 12, after which patient was discharged. - Patient reports cessation of nifedipine due to running out of medication two days prior to the visit. - Current hypertension management includes losartan, previously included nifedipine and atenolol (discontinued). Non-compliance with medication: - Patient admits to medication non-compliance due to stress and hectic summer activities. - Patient acknowledges missing doses and delayed engagement with nephrology and endocrine appointments. - She plans to reschedule appointments and acknowledges the need for medication consistency. 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 - Reports prior alcohol consumption due to stress, recently ceased drinking and reports cessation of naltrexone. 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 - Reports high stress levels due to caregiving responsibilities. - Daughter identified as a vital support system. - Previous substance use: alcohol, ceased due to stress and treatment with naltrexone. 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 Problem List - Essential Hypertension - History of Alcohol Dependency - Low Sodium Levels - Angiomyolipoma (AML) of the left kidney - Hospital / rehab discharge follow up Patient Instructions - Continue taking prescribed medications as directed. - Monitor blood pressure regularly at home. - Return for a blood test in six weeks. for TSH and sodium , b 12 - Continue Vitamin B12 regimen as advised. - Reschedule any missed appointments with specialists. - Do not stop or miss medications to avoid complications. Orders: Orders TSH reflex Free T4 6 Weeks E03.8 - Other specified hypothyroidism, E53.8 - Deficiency of other specified B group vitamins, E55.9 - Vitamin D deficiency, unspecified, E87.1 - Hypo-osmolality and hyponatremia, I10 - Essential (primary) hypertension, N28.9 - Disorder of kidney and ureter, unspecified, R73.01 - Impaired fasting glucose, Z09 - Encounter for follow-up examination after completed treatment for conditions other than malignant neoplasm Comprehensive Met. Panel 6 Weeks E03.8 - Other specified hypothyroidism, E53.8 - Deficiency of other specified B group vitamins, E55.9 - Vitamin D deficiency, unspecified, E87.1 - Hypo-osmolality and hyponatremia, I10 - Essential (primary) hypertension, N28.9 - Disorder of kidney and ureter, unspecified, R73.01 - Impaired fasting glucose, Z09 - Encounter for follow-up examination after completed treatment for conditions other than malignant neoplasm Vitamin B12 6 Weeks E53.8 - Deficiency of other specified B group vitamins Complete Blood Count Auto Diff 6 Weeks E03.8 - Other specified hypothyroidism, E53.8 - Deficiency of other specified B group vitamins, E55.9 - Vitamin D deficiency, unspecified, E87.1 - Hypo-osmolality and hyponatremia, I10 - Essential (primary) hypertension, N28.9 - Disorder of kidney and ureter, unspecified, R73.01 - Impaired fasting glucose, Z09 - Encounter for follow-up examination after completed treatment for conditions other than malignant neoplasm Medications: New nifedipine ER 30 mg PO DAILY 90 tabs 0RF
--- OUTSIDE RECORDS SUMMARY | 2025-04-23 13:30 | XMS_ITS | Clinical Summary ---
Author Organization [address] [facility] Address [address] [place] [address] Phone Care Team Providers Care Zigzag Topstitcher Name Role Phone Bakari Valdes MD Primary Care Provider [phone] Encounters Date Type Department Care Team Description 04/15/2025 Lab Requisition [facility] [address] [place] [address] Bakari Valdes MD Anemia, unspecified 04/08/2025 Lab Requisition [facility] [address] [place] [address] Bakari Valdes MD Anemia, unspecified from Last 3 Months Social History Tobacco Use Types Packs/Day Years Used Date Smoking Tobacco: Never Assessed Comments Unknown Sex and Gender Information Value Date Recorded Sex Assigned at Not on file Legal Sex Female 11:16 AM EDT Gender Identity Not on file Sexual Orientation Not on file Plan of Treatment Health Maintenance Due Date Last Done Comments DTaP,Tdap,and Td Vaccines (1 - Tdap) 1965 Pneumococcal Vaccine: 50+ Ye ars (1 of 1 - PCV) 1996 Zoster Vaccines (1 of 2) 1996 RSV Immunization Adult Patie nts (1 - 1-dose 75+ series) 2021 COVID-19 Vaccine (1 - 2023-2 5 season) 2024 Depression Screening 08/29/2024 Falls Risk Assessment 04/08/2025 Hepatitis C Screening 04/08/2025 Osteoporosis Screening (Bone Density Screening) 04/08/2025 Social Influencers of Health Screening 04/08/2025 Influenza Vaccine (#1) 2025 HIB Vaccines Aged Out No longer eligi ble based on patient's age to complete this topic HPV Vaccines Aged Out No longer eligi ble based on patient's age to complete this topic Hepatitis A Vaccines Aged Out No long er eligible based on patient's age to complete this topic Hepatitis B Vaccines Aged Out No long er eligible based on patient's age to complete this topic IPV Vaccines Aged Out No longer eligi ble based on patient's age to complete this topic MMR Vaccines Aged Out No longer eligi ble based on patient's age to complete this topic Meningococcal ACWY Vaccine Aged Out N o longer eligible based on patient's age to complete this topic Meningococcal B Vaccine Aged Out No l onger eligible based on patient's age to complete this topic RSV Immunization Patients Un toño 20 months Aged Out No longer eligible b ased on patient's age to complete this topic Varicella Vaccines Aged Out No longer eligible based on patient's age to complete this topic Procedures Procedure Name Priority Date/Time Associated Diagnosis Comments COMPREHENSIVE METABOLIC PANEL Routine 04/09/2025 7:19 AM EDT Anemia, unspecified COMPLETE BLOOD COUNT Routine 04/09/2025 7:19 AM EDT Anemia, unspecified from Last 3 Months Results * (ABNORMAL) Complete blood count (04/09/2025 7:19 AM EDT) WBC 4.8 4.8 - 10.8 K/mcL LAB HEMETOLOGY METHOD 04/09/2025 9:43 AM [facility] RBC 3.10(L) 3.80 - 4.80 M/mcL LAB HEMETOLOGY METHOD 04/09/2025 9:43 AM [facility] Hemoglobin 10.3(L) 11.5 - 16.0 g/dL LAB HEMETOLOGY METHOD 04/09/2025 9:43 AM [facility] Hematocrit 31.7(L) 35.0 - 47.0 % LAB HEMETOLOGY METHOD 04/09/2025 9:43 AM [facility] MCV 102.6(H) 79.0 - 98.0 FL LAB HEMETOLOGY METHOD 04/09/2025 9:43 AM [facility] MCH 33.3(H) 27.0 - 32.0 pcg LAB HEMETOLOGY METHOD 04/09/2025 9:43 AM EDT [facility] MCHC 32.5 32.0 - 37.0 g/dL LAB HEMETOLOGY METHOD 04/09/2025 9:43 AM EDT [facility] RDW 14.8 11.0 - 15.0 % LAB HEMETOLOGY METHOD 04/09/2025 9:43 AM EDT [facility] Platelets 232 130 - 400 K/mcL LAB HEMETOLOGY METHOD 04/09/2025 9:43 AM EDT [facility] MPV 9.5 7.0 - 11.0 FL LAB HEMETOLOGY METHOD 04/09/2025 9:43 AM EDT [facility] NRBC 0.0 <1.0 % LAB HEMETOLOGY METHOD 04/09/2025 9:43 AM EDT [facility] NRBC Absolute 0.00 <0.10 K/mcL LAB HEMETOLOGY METHOD 04/09/2025 9:43 AM EDT [facility] Blood Venous blood specimen / Unknown Venipuncture / Unknown 04/09/2025 7:19 AM EDT 04/09/2025 8:47 AM EDT Bakari Valdes MD LAB BLOOD ORDERABLES Final Result [facility] [address] [place] [address], * (ABNORMAL) Comprehensive metabolic panel (04/09/2025 7:19 AM EDT) Sodium 134 133 - 145 mmol/L LAB CHEMISTRY METHOD 04/09/2025 10:24 AM EDT [facility] Potassium 4.7 3.5 - 5.5 mmol/L LAB CHEMISTRY METHOD 04/09/2025 10:24 AM [facility] Chloride 99 96 - 110 mmol/L LAB CHEMISTRY METHOD 04/09/2025 10:24 AM [facility] CO2 28 21 - 32 mmol/L LAB CHEMISTRY METHOD 04/09/2025 10:24 AM [facility] Anion Gap 7 3 - 11 LAB CHEMISTRY METHOD 04/09/2025 10:24 AM [facility] Glucose 78 70 - 100 mg/dL LAB CHEMISTRY METHOD 04/09/2025 10:24 AM [facility] BUN 20 5 - 25 mg/dL LAB CHEMISTRY METHOD 04/09/2025 10:24 AM [facility] Creatinine 1.20(H) 0.50 - 1.10 mg/dL LAB CHEMISTRY METHOD 04/09/2025 10:24 AM [facility] eGFR 46(L) >=60 mL/min/1. 73m2 LAB CHEMISTRY METHOD 04/09/2025 10:24 AM [facility] Comment:Calculation based on the Chronic Kidney Disease Epidemiology Collaboration (CKD-EPI) equation refit without adjustment for race. BUN/Creatinine Ratio 16.7 LAB CHEMISTRY METHOD 04/09/2025 10:24 AM [facility] Calcium 9.1 8.5 - 10.5 mg/dL LAB CHEMISTRY METHOD 04/09/2025 10:24 AM [facility] AST (SGOT) 44(H) 10 - 42 unit/L LAB CHEMISTRY METHOD 04/09/2025 10:24 AM [facility] ALT (SGPT) 41 10 - 60 unit/L LAB CHEMISTRY METHOD 04/09/2025 10:24 AM [facility] Alkaline Phosphatase 72 42 - 121 unit/L LAB CHEMISTRY METHOD 04/09/2025 10:24 AM [facility] Total Protein 6.0 6.0 - 8.0 g/dL LAB CHEMISTRY METHOD 04/09/2025 10:24 AM EDT [facility] Albumin 3.6 3.2 - 5.0 g/dL LAB CHEMISTRY METHOD 04/09/2025 10:24 AM EDT [facility] Total Bilirubin 0.5 0.0 - 1.4 mg/dL LAB CHEMISTRY METHOD 04/09/2025 10:24 AM EDT [facility] Blood Venous blood specimen / Unknown Venipuncture / Unknown 04/09/2025 7:19 AM EDT 04/09/2025 8:47 AM EDT us Bakari Valdes MD LAB BLOOD ORDERABLES Final Result [facility] [address] [place] [address], from Last 3 Months Insurance [facility] Care Teams Zigzag Topstitcher Relationship Specialty Start Date End Date Bakari Valdes MD [address] [place] [address] [facility] [place], [place] PCP - General Internal Medicine 04/08/25
--- OUTSIDE RECORDS SUMMARY | 2025-04-23 13:30 | XMS_ITS | Patient Health Record ---
Author Organization [facility] Address [address] [place] [address] Care Team Providers Care Mgmt Specialist Name Role Phone Harpal [facility], [facility] Primary Care Provider Drake De Leon [phone] Reason For Referral No Information Medications Medication SIG (Take, Route, Frequency, Duration) Notes Start Date End Date Status Calcium 600 MG 2tablet with meals Orally Once a day Active Aspir-81 81 MG 1 tablet Orally Once a day Active Levothyroxine Sodium 100 MCG 1 tablet on an empty stomach in the morning Orally Once a day Active Lisinopril 20 MG 1 tablet Orally Once a day Active Simvastatin 20 MG 1 tablet in the even ing Orally Once a day Active Multi Vitamin/Minerals Orally Active Fish Oil 1000 MG 1 capsule Orally Onc e a day Active Flaxseed Oil 1000 MG Orally Active Vitamin C 500 MG 1 tablet Orally Once a day Active Problems Problem Type SNOMED Code ICD Code Onset Dates Problem Status W/U Status Risk Notes Problem 306507487 Encounter for screening for malignant neoplasm of colon (Z12.11) Active confirmed Problem 541895256 History of adenomatous polyp of colon (Z86.010) Active confirmed Problem [id number] Preprocedural examination (Z01.818) Active confirmed Problem 504420431 Long-term use of aspirin therapy (Z79.82) Active confirmed Plan Of Treatment Future Test Test Name Order Date COLONOSCOPY 01/31/2014 COLONOSCOPY 02/08/2018 Insurance Providers Payer Name Payer Address Payer Phone Subscriber Number Group Number Insured Name Patient Relationship to Insured Coverage Start Date Coverage End Date [facility] [address] [place] [address] [id number] THEO BOND Self - patient is the insured Medical (General) History Medical History History ICD Code Colonoscopy 07-15-2006--1 small tubular adenoma removed Hyperlipidemia Hypertension Hypothyroidism Denies RI,DM,CVA,Lung disease,renal dise ase Colonoscopy in 03/2014--> 1 c m flat tubular adenoma removed from 20cm, diverticulosis, internal hemorrhoids--- she also had a small tubular adenoma removed as well Surgical History Surgery Date(Month/Year) Tonsillectomy Carotid endarterectomy on the right 04/17 05 Tubal ligation 1979 Carpal tunnel release bilaterally Cholecystectomy
--- OUTSIDE RECORDS SUMMARY | 2025-04-23 13:30 | XMS_ITS | Encounter Summary ---
Author Organization [employer] Address [address] [place] [address] Care Team Providers Care Camera Person Name Role Phone Bakari Valdes MD Primary Care Provider [phone]- [phone] Encounter Details Date Type Department Care Team (Late st Contact Info) Description 04/08/2025 Lab Requisition [facility] - Main Lab [address] [facility] [address] Bakari Valdes MD [address] [place] [address] [phone] Anemia, unspecified Social History Tobacco Use Types Packs/Day Years Used Date Smoking Tobacco: Never Assessed Comments Unknown Sex and Gender Information Value Date Recorded Sex Assigned at Not on file Legal Sex Female 11:16 AM EDT Gender Identity Not on file Sexual Orientation Not on file documented as of this encounter Plan of Treatment Not on file documented as of this encounter Procedures Procedure Name Priority Date/Time Associated Diagnosis Comments COMPLETE BLOOD COUNT Routine 04/09/2025 7:19 AM EDT Anemia, unspecified COMPREHENSIVE METABOLIC PANEL Routine 04/09/2025 7:19 AM EDT Anemia, unspecified documented in this encounter Results * (ABNORMAL) Comprehensive metabolic panel (04/09/2025 7:19 AM EDT) Sodium 134 133 - 145 mmol/L LAB CHEMISTRY METHOD 04/09/2025 10:24 AM [facility] Potassium 4.7 3.5 - 5.5 mmol/L LAB CHEMISTRY METHOD 04/09/2025 10:24 AM [facility] Chloride 99 96 - 110 mmol/L LAB CHEMISTRY METHOD 04/09/2025 10:24 AM [facility] CO2 28 21 - 32 mmol/L LAB CHEMISTRY METHOD 04/09/2025 10:24 AM [facility] Anion Gap 7 3 - 11 LAB CHEMISTRY METHOD 04/09/2025 10:24 AM [facility] Glucose 78 70 - 100 mg/dL LAB CHEMISTRY METHOD 04/09/2025 10:24 AM [facility] BUN 20 5 - 25 mg/dL LAB CHEMISTRY METHOD 04/09/2025 10:24 AM [facility] Creatinine 1.20(H) 0.50 - 1.10 mg/dL LAB CHEMISTRY METHOD 04/09/2025 10:24 AM [facility] eGFR 46(L) >=60 mL/min/1. 73m2 LAB CHEMISTRY METHOD 04/09/2025 10:24 AM [facility] Comment:Calculation based on the Chronic Kidney Disease Epidemiology Collaboration (CKD-EPI) equation refit without adjustment for race. BUN/Creatinine Ratio 16.7 LAB CHEMISTRY METHOD 04/09/2025 10:24 AM [facility] Calcium 9.1 8.5 - 10.5 mg/dL LAB CHEMISTRY METHOD 04/09/2025 10:24 AM [facility] AST (SGOT) 44(H) 10 - 42 unit/L LAB CHEMISTRY METHOD 04/09/2025 10:24 AM [facility] ALT (SGPT) 41 10 - 60 unit/L LAB CHEMISTRY METHOD 04/09/2025 10:24 AM [facility] Alkaline Phosphatase 72 42 - 121 unit/L LAB CHEMISTRY METHOD 04/09/2025 10:24 AM [facility] Total Protein 6.0 6.0 - 8.0 g/dL LAB CHEMISTRY METHOD 04/09/2025 10:24 AM [facility] Albumin 3.6 3.2 - 5.0 g/dL LAB CHEMISTRY METHOD 04/09/2025 10:24 AM [facility] Total Bilirubin 0.5 0.0 - 1.4 mg/dL LAB CHEMISTRY METHOD 04/09/2025 10:24 AM [facility] Blood Venous blood specimen / Unknown Venipuncture / Unknown 04/09/2025 7:19 AM EDT 04/09/2025 8:47 AM EDT Bakari Valdes MD LAB BLOOD ORDERABLES Final Result [facility] [address] [place] [address], * (ABNORMAL) Complete blood count (04/09/2025 7:19 AM EDT) WBC 4.8 4.8 - 10.8 K/mcL LAB HEMETOLOGY METHOD 04/09/2025 9:43 AM [facility] RBC 3.10(L) 3.80 - 4.80 M/mcL LAB HEMETOLOGY METHOD 04/09/2025 9:43 AM [facility] Hemoglobin 10.3(L) 11.5 - 16.0 g/dL LAB HEMETOLOGY METHOD 04/09/2025 9:43 AM [facility] Hematocrit 31.7(L) 35.0 - 47.0 % LAB HEMETOLOGY METHOD 04/09/2025 9:43 AM [facility] MCV 102.6(H) 79.0 - 98.0 FL LAB HEMETOLOGY METHOD 04/09/2025 9:43 AM [facility] MCH 33.3(H) 27.0 - 32.0 pcg LAB HEMETOLOGY METHOD 04/09/2025 9:43 AM [facility] MCHC 32.5 32.0 - 37.0 g/dL LAB HEMETOLOGY METHOD 04/09/2025 9:43 AM EDT [facility] RDW 14.8 11.0 - 15.0 % LAB HEMETOLOGY METHOD 04/09/2025 9:43 AM EDT [facility] Platelets 232 130 - 400 K/mcL LAB HEMETOLOGY METHOD 04/09/2025 9:43 AM EDT [facility] MPV 9.5 7.0 - 11.0 FL LAB HEMETOLOGY METHOD 04/09/2025 9:43 AM EDT [facility] NRBC 0.0 <1.0 % LAB HEMETOLOGY METHOD 04/09/2025 9:43 AM EDT [facility] NRBC Absolute 0.00 <0.10 K/mcL LAB HEMETOLOGY METHOD 04/09/2025 9:43 AM EDT [facility] Blood Venous blood specimen / Unknown Venipuncture / Unknown 04/09/2025 7:19 AM EDT 04/09/2025 8:47 AM EDT Bakari Valdes MD LAB BLOOD ORDERABLES Final Result [facility] [address] [place] [address], documented in this encounter Visit Diagnoses Diagnosis Anemia, unspecified documented in this encounter Care Teams Camera Person Relationship Specialty Start Date End Date Bakari Valdes MD [address] [place], [place] [address] [place] [place] PCP - General Internal Medicine 04/08/25 documented as of this encounter
--- OUTSIDE RECORDS SUMMARY | 2025-04-23 13:30 | XMS_ITS | Encounter Summary ---
Author Organization [facility] Address [address] [address] Phone Care Team Providers Care Ranch Hand Supervisor Name Role Phone Clara Rowan MD Primary Care Provider [phone] Encounter Details Date Type Department Care Team (Late st Contact Info) Description 08/09/2024 Office Communication [facility] [address] [phone] Judie Quezada ARNP [address] [address] Social History Tobacco Use Types Packs/Day Years Used Date Smoking Tobacco: Never Assessed Comments Unknown Sex and Gender Information Value Date Recorded Sex Assigned at Not on file Legal Sex Female 11:15 AM EDT Gender Identity Not on file Sexual Orientation Not on file documented as of this encounter Plan of Treatment Upcoming Encounters Date Type Department Care Team (Late st Contact Info) Description 08/08/2025 9:00 AM EST Office Visit [facility] [address] [address] Judie Quezada ARNP [address] [address] documented as of this encounter Visit Diagnoses Not on filedocumented in this encounter Care Teams Ranch Hand Supervisor Relationship Specialty Start Date End Date Clara Rowan MD [address] [place] [address] PCP - General Internal Medicine 05/19/23 documented as of this encounter
--- OUTSIDE RECORDS SUMMARY | 2025-04-23 13:30 | XMS_ITS | Clinical Summary ---
Author Organization [facility] Address [address] [facility] [address] [place] [address] Phone Care Team Providers Care Line Dancer Name Role Phone Clara Rowan MD Primary Care Provider [phone] Allergies No known active allergies Medications aspirin (Aspirin 81) 81 MG chewable tablet 1 (one) time each day Active Flaxseed, Linseed, (Flaxseed Oil) 1000 MG capsule Acti ve acetaminophen (TYLENOL) 325 MG tablet Take 650 mg by mouth 09/05/2020 Active Docusate Sodium (COLACE PO) Take 100 mg by mouth 09/05/2020 Active levothyroxine (SYNTHROID, LEVOTHROID) 100 MCG tablet Take 88 mcg by mouth 1 (one) time each day 09/04/2020 Active simvastatin (ZOCOR) 20 MG tablet 1 (one) time each day 09/04/2020 Active atenolol (TENORMIN) 50 MG tablet Take 50 mg by mouth 1 (one) time each day 07/22/2023 Active Ascorbic Acid (Vitamin C) 500 MG capsule 1 (one) time each day Active Multiple Vitamin (multivitamin) tablet Take 1 tablet by mouth 1 (one) time each day Active losartan (Cozaar) 100 MG tablet Take 1 tablet (100 mg total) by mouth 1 (one) time each day 90 tablet 3 07/30/2024 Active Cholecalciferol (Vitamin D3) 50 MCG (1999) tabletIndication s:Vitamin D deficiency, not otherwise specified Take 2,000 Units by mouth 1 (one) time each day 30 tablet 11 08/09/2024 5 Active furosemide (LASIX) 20 MG tablet Take 1 tablet (20 mg total) by mouth 2 (two) times a week 90 tablet 3 12/27/2024 Active sodium bicarbonate 650 MG tabletIndication s:Acute metabolic acidosis,Stage 3b chronic kidney disease (HCC) Take 1 tablet (650 mg total) by mouth 2 (two) times a day 60 tablet 5 01/09/2025 5 Active atenolol (Tenormin) 25 MG tabletIndication s:Hypertension Take 1 tablet (25 mg total) by mouth 1 (one) time each day To be taken with a 50 mg tablet for a total dose of 75 mg 90 tablet 3 02/07/2025 6 Active Active Problems Problem Noted Date Diagnosed Date Stage 3b chronic kidney disease 07/10/2024 Vitamin D deficiency, not otherwise specified Anemia in chronic kidney disease 07/10/2024 Hypo-osmolality and hyponatremia 07/25/2023 Hypertension 07/25/2023 Aspirin therapy finding 07/20/2023 07/20/20 Encounter for screening for malignant neoplasm o f colon 07/20/2023 07/20/2023 History of adenomatous polyp of colon 07/20/2023 07/20/2023 Preprocedural examination done 07/20/2023 1 09/19/2022 Encounters Date Type Department Care Team Description 03/10/2025 Orders Only [facility] [address] [place] [phone] Judie Quezada ARNP Stage 3b chronic kidney disease (HCC); Hypertension; Hypo-osmolality and hyponatremia; Chronic metabolic acidosis 02/07/2025 10:00 AM EDT Office Visit [facility] [address] [address] Judie Quezada ARNP Stage 3b chronic kidney disease (HCC) (Primary Dx); Hypertension; Anemia in chronic kidney disease; Hypo-osmolality and hyponatremia; Chronic metabolic acidosis; Vitamin D deficiency, not otherwise specified from Last 3 Months Family History Medical History Relation Comments Ulcerative colitis Father Heart failure Mother Relation Status Comments Father Mother Social History Tobacco Use Types Packs/Day Years Used Date Smoking Tobacco: Never Assessed Comments Unknown Sex and Gender Information Value Date Recorded Sex Assigned at Not on file Legal Sex Female 11:15 AM EDT Gender Identity Not on file Sexual Orientation Not on file Last Filed Vital Signs Vital Sign Reading Time Taken Comments Blood Pressure 144/80 02/07/2025 10:16 AM EDT Pulse 84 02/07/2025 9:52 AM EDT Temperature - - Respiratory Rate - - Oxygen Saturation 97% 02/07/2025 9:52 AM EDT Inhaled Oxygen Concentration - - Weight 63 kg (139 lb) 02/07/2025 9:52 AM EDT Height - - Body Mass Index - - Plan of Treatment Upcoming Encounters Date Type Department Care Team (Late st Contact Info) Description 08/08/2025 9:00 AM EST [facility] [address] [address] Judie Quezada ARNP [address] [phone] Health Maintenance Due Date Last Done Comments Pneumococcal Vaccine: 50+ Ye ars (1 of 2 - PCV) 1965 Influenza Vaccine (#1) 2025 Hepatitis B Vaccine Aged Out No longe r eligible based on patient's age to complete this topic Insurance [facility] Care Teams Line Dancer Relationship Specialty Start Date End Date Clara Rowan MD [address] [place] [address] PCP - General Internal Medicine 05/19/23
--- OUTSIDE RECORDS SUMMARY | 2025-04-23 13:30 | XMS_ITS | Encounter Summary ---
Author Organization [facility] Address [address] [address] Phone Care Team Providers Care Dance Costume Designer Name Role Phone Clara Rowan MD Primary Care Provider [phone] Encounter Details Date Type Department Care Team (Late st Contact Info) Description 01/09/2025 Office Communication [facility] [address] [phone] Judie Quezada ARNP [address] [address] Social History Tobacco Use Types [...] Office Visit [facility] [address] [address] Judie Quezada ARNP [address] [address] documented as of this encounter Visit Diagnoses Not on filedocumented in this encounter Care Teams Dance Costume Designer Relationship Specialty Start Date End Date Clara Rowan MD [address] [place] [address] PCP - General Internal Medicine 05/19/23 documented as of this encounter
--- OUTSIDE RECORDS SUMMARY | 2025-04-23 13:30 | XMS_ITS | Encounter Summary ---
Author Organization [employer] Address [address] [place] [address] Care Team Providers Care Barrel Bung Remover And Dumper Name Role Phone Bakari Valdes MD Primary Care Provider [phone] Encounter Details Date Type Department Care Team (Late st Contact Info) Description 04/15/2025 Lab Requisition [facility] - Main Lab [address] [facility] [place] [address] Bakari Valdes MD [address] [place] [address] Anemia, unspecified Social History Tobacco Use Types Packs/Day Years Used Date Smoking Tobacco: Never Assessed Comments Unknown Sex and Gender Information Value Date Recorded Sex Assigned at Not on file Legal Sex Female 11:16 AM EDT Gender Identity Not on file Sexual Orientation Not on file documented as of this encounter Plan of Treatment Not on file documented as of this encounter Visit Diagnoses Diagnosis Anemia, unspecified documented in this encounter Care Teams Barrel Bung Remover And Dumper Relationship Specialty Start Date End Date Bakari Valdes MD [address] [facility] [place], [place] PCP - General Internal Medicine 04/08/25 documented as of this encounter
== END 2025-04-23 14:30 | disposition home or self-care (01) ==
PROVIDERS: PCP Internal Medicine; Visit Provider Internal Medicine
DX: I10 Essential (primary) hypertension (principal); R73.01 Impaired fasting glucose; E03.8 Other specified hypothyroidism; Z09 Encounter for follow-up examination after completed treatment for conditions other than malignant neoplasm; E55.9 Vitamin D deficiency, unspecified; E53.8 Deficiency of other specified B group vitamins; N28.9 Disorder of kidney and ureter, unspecified; E87.1 Hypo-osmolality and hyponatremia; F10.11 Alcohol abuse, in remission; F43.9 Reaction to severe stress, unspecified; M54.9 Dorsalgia, unspecified; G89.29 Other chronic pain

== ENCOUNTER → 2025-04-23 12:46 | Outpatient (BNVA) | payer MEDICARE, SELFPAY | PROVIDERS: PCP Internal Medicine; Visit Provider Internal Medicine | DX: I12.9 Hypertensive chronic kidney disease with stage 1 through stage 4 chronic kidney disease, or unspecified chronic kidney disease (principal); M54.50 Low back pain, unspecified; N18.30 Chronic kidney disease, stage 3 unspecified; E03.9 Hypothyroidism, unspecified; R73.01 Impaired fasting glucose; E03.8 Other specified hypothyroidism; E55.9 Vitamin D deficiency, unspecified; E53.8 Deficiency of other specified B group vitamins; N28.9 Disorder of kidney and ureter, unspecified; E87.1 Hypo-osmolality and hyponatremia; F10.11 Alcohol abuse, in remission; F43.9 Reaction to severe stress, unspecified; G89.29 Other chronic pain; R26.89 Other abnormalities of gait and mobility; Z09 Encounter for follow-up examination after completed treatment for conditions other than malignant neoplasm; Z99.89 Dependence on other enabling machines and devices | CPT/HCPCS: 99212 ==

== ENCOUNTER → 2025-05-10 23:59 | Outpatient (BNV) | payer MEDICARE, SELFPAY | PROVIDERS: PCP Internal Medicine; Visit Provider Internal Medicine | DX: K70.9 Alcoholic liver disease, unspecified (principal); N18.30 Chronic kidney disease, stage 3 unspecified; F10.90 Alcohol use, unspecified, uncomplicated | CPT/HCPCS: G0180 ==

== ENCOUNTER 2025-06-21 10:00 | Outpatient (REF) | payer MEDICARE, SELFPAY ==
--- OUTSIDE RECORDS SUMMARY | 2025-06-21 11:16 | XMS_ITS | Encounter Summary ---
Author Organization [employer] Address [address] [place] [address] Care Team Providers Care Public Relations Professional Name Role Phone Bakari Valdes MD Primary Care Provider [phone] Encounter Details Date Type Department Care Team (Late st Contact Info) Description 04/15/2025 Lab Requisition [facility] - Main Lab [address] [facility] [place] [address] Bakari Valdes MD [address] [place] [id number] Anemia, unspecified Social History Tobacco Use Types [...] unspecified documented in this encounter Care Teams Public Relations Professional Relationship Specialty Start Date End Date Bakari Valdes MD [address] [facility] [place], [place] PCP - General Internal Medicine 04/08/25 documented as of this encounter
--- OUTSIDE RECORDS SUMMARY | 2025-06-21 11:16 | XMS_ITS | Encounter Summary ---
Author Organization [employer] Address [address] [place] [address] Care Team Providers Care Forming And Assembling Supervisor Name Role Phone Bakari Valdes MD Primary Care Provider [phone] Encounter Details Date Type Department Care Team (Late st Contact Info) Description 04/08/2025 Lab Requisition [facility] - Main Lab [address] [facility] [place] [address] Bakari Valdes MD [address] [place] [phone] Anemia, unspecified Social History Tobacco Use Types [...] mmol/L LAB CHEMISTRY METHOD 04/09/2025 10:24 AM [facility] Potassium 4.7 3.5 - 5.5 mmol/L LAB CHEMISTRY METHOD 04/09/2025 10:24 AM [facility] Chloride 99 96 - 110 mmol/L LAB CHEMISTRY METHOD 04/09/2025 10:24 AM [facility] CO2 28 21 - 32 mmol/L LAB CHEMISTRY METHOD 04/09/2025 10:24 AM [facility] Anion Gap 7 3 - 11 LAB CHEMISTRY METHOD 04/09/2025 10:24 AM [facility] Glucose 78 70 - 100 mg/dL LAB CHEMISTRY METHOD 04/09/2025 10:24 AM [facility] BUN 20 5 - 25 mg/dL LAB CHEMISTRY METHOD 04/09/2025 10:24 AM [facility] Creatinine 1.20(H) 0.50 - 1.10 mg/dL LAB CHEMISTRY METHOD 04/09/2025 10:24 AM [facility] eGFR 46(L) >=60 mL/min/1. 73m2 LAB CHEMISTRY METHOD 04/09/2025 10:24 AM [facility] Comment:Calculation based on the Chronic Kidney Disease Epidemiology Collaboration (CKD-EPI) equation refit without adjustment for race. BUN/Creatinine Ratio 16.7 LAB CHEMISTRY METHOD 04/09/2025 10:24 AM [facility] Calcium 9.1 8.5 - 10.5 mg/dL LAB CHEMISTRY METHOD 04/09/2025 10:24 AM [facility] AST (SGOT) 44(H) 10 - 42 unit/L LAB CHEMISTRY METHOD 04/09/2025 10:24 AM [facility] ALT (SGPT) 41 10 - 60 unit/L LAB CHEMISTRY METHOD 04/09/2025 10:24 AM [facility] Alkaline Phosphatase 72 42 - 121 unit/L LAB CHEMISTRY METHOD 04/09/2025 10:24 AM [facility] Total Protein 6.0 6.0 - 8.0 g/dL LAB CHEMISTRY METHOD 04/09/2025 10:24 AM [facility] Albumin 3.6 3.2 - 5.0 g/dL LAB CHEMISTRY METHOD 04/09/2025 10:24 AM [facility] Total Bilirubin 0.5 0.0 - 1.4 mg/dL LAB CHEMISTRY METHOD 04/09/2025 10:24 AM [facility] Blood Venous blood specimen / Unknown Venipuncture / Unknown 04/09/2025 7:19 AM EDT 04/09/2025 8:47 AM EDT Bakari Valdes MD LAB BLOOD ORDERABLES Final Result [facility] [address] [place] [address], * (ABNORMAL) Complete blood count (04/09/2025 7:19 AM EDT) WBC 4.8 4.8 - 10.8 K/mcL LAB HEMETOLOGY METHOD 04/09/2025 9:43 AM [facility] RBC 3.10(L) 3.80 - 4.80 M/mcL LAB HEMETOLOGY METHOD 04/09/2025 9:43 AM [facility] Hemoglobin 10.3(L) 11.5 - 16.0 g/dL LAB HEMETOLOGY METHOD 04/09/2025 9:43 AM [facility] Hematocrit 31.7(L) 35.0 - 47.0 % LAB HEMETOLOGY METHOD 04/09/2025 9:43 AM [facility] MCV 102.6(H) 79.0 - 98.0 FL LAB HEMETOLOGY METHOD 04/09/2025 9:43 AM [facility] MCH 33.3(H) 27.0 - 32.0 pcg LAB HEMETOLOGY METHOD 04/09/2025 9:43 AM [facility] MCHC 32.5 32.0 - 37.0 g/dL LAB HEMETOLOGY METHOD 04/09/2025 9:43 AM EDT [facility] RDW 14.8 11.0 - 15.0 % LAB HEMETOLOGY METHOD 04/09/2025 9:43 AM EDT [facility] Platelets 232 130 - 400 K/mcL LAB HEMETOLOGY METHOD 04/09/2025 9:43 AM EDT [facility] MPV 9.5 7.0 - 11.0 FL LAB HEMETOLOGY METHOD 04/09/2025 9:43 AM EDT [facility] NRBC 0.0 <1.0 % LAB HEMETOLOGY METHOD 04/09/2025 9:43 AM EDT [facility] NRBC Absolute 0.00 <0.10 K/mcL LAB HEMETOLOGY METHOD 04/09/2025 9:43 AM EDT [facility] Blood Venous blood specimen / Unknown Venipuncture / Unknown 04/09/2025 7:19 AM EDT 04/09/2025 8:47 AM EDT Bakari Valdes MD LAB BLOOD ORDERABLES Final Result [facility] [address] [place] [address], documented in this encounter Visit Diagnoses Diagnosis Anemia, unspecified documented in this encounter Care Teams Forming And Assembling Supervisor Relationship Specialty Start Date End Date Bakari Valdes MD [address] [place], [place] [address] [place], [place] PCP - General Internal Medicine 04/08/25 documented as of this encounter
--- OUTSIDE RECORDS SUMMARY | 2025-06-21 11:16 | XMS_ITS | Patient Health Record ---
Author Organization [facility] Address [address] [place] [address] Care Team Providers Care Operation Supervisor Name Role Phone [facility] Primary Care Provider Drake De Leon Unavailable [phone] Reason For Referral No Information Medications Medication [...] Problem Status W/U Status Risk Notes Problem Information temporarily unavailable Encounter for screening for malignant neoplasm of colon (Z12.11) Active confirmed Problem Information temporarily unavailable History of adenomatous polyp of colon (Z86.010) Active confirmed Problem Information temporarily unavailable Preprocedural examination (Z01.818) Active confirmed Problem Information temporarily unavailable Long-term use of aspirin therapy (Z79.82) Active confirmed Plan Of Treatment Future Test Test Name Order Date COLONOSCOPY 01/31/2014 COLONOSCOPY 02/08/2018 Insurance Providers Payer Name Payer Address Payer Phone Subscriber Number Group Number Insured Name Patient Relationship to Insured Coverage Start Date Coverage End Date [facility] [address] [place] [phone] [id number] THEO BOND Self - patient is the insured Medical (General) History Medical History History ICD Code Colonoscopy 07-15-2006--1 small tubular adenoma removed Hyperlipidemia Hypertension Hypothyroidism Denies CT,DM,CVA,Lung disease,renal dise ase Colonoscopy in 03/2014--> 1 c m flat tubular adenoma removed from 20cm, diverticulosis, internal hemorrhoids--- she also had a small tubular adenoma removed as well Surgical History Surgery Date(Month/Year) Tonsillectomy Carotid endarterectomy on the right 04/17 05 Tubal ligation 1979 Carpal tunnel release bilaterally Cholecystectomy
--- OUTSIDE RECORDS SUMMARY | 2025-06-21 11:16 | XMS_ITS | Clinical Summary ---
Author Organization [facility] Address [address] [facility] [address] [place] [address] Phone Care Team Providers Care Device Repair Technician Name Role Phone Clara Rowan MD Primary Care Provider [phone] Allergies No known active allergies Medications aspirin [...] 07/20/2023 Preprocedural examination done 07/20/2023 1 09/19/2022 Family History Medical History Relation Comments Ulcerative [...] Care Team (Late st Contact Info) Description 07/21/2025 Orders Only [facility] [address] [address] Judie QuezadaRADHA [address] [address] Stage 3b chronic kidney disease (HCC); Hypertension; Anemia in chronic kidney disease; Hypo-osmolality and hyponatremia; Chronic metabolic acidosis; Vitamin D deficiency, not otherwise specified 08/08/2025 9:00 AM EST Office Visit [facility] [address] [address] Quezada JudieRADHA reyes [address] [address] Health Maintenance Due Date Last Done Comments Pneumococcal Vaccine: 50+ Ye ars (1 of 2 - PCV) 1965 Influenza Vaccine (#1) 2025 Hepatitis B Vaccine Aged Out No longe r eligible based on patient's age to complete this topic Insurance [facility] Care Teams Device Repair Technician Relationship Specialty Start Date End Date Clara Rowan MD [address] [place] [address] PCP - General Internal Medicine 05/19/23
--- OUTSIDE RECORDS SUMMARY | 2025-06-21 11:16 | XMS_ITS | Encounter Summary ---
Author Organization [facility] Address [address] [address] Phone Care Team Providers Care Lacquer Spray Booth Operator Name Role Phone Clara Rowan MD Primary Care Provider [phone] Encounter Details Date Type Department Care Team (Late st Contact Info) Description 08/09/2024 Office Communication [facility] [address] [address] Judie Quezada ARNP [address] [address] Social History Tobacco Use Types [...] Orders Only [facility] [address] [address] Judie Quezada ARNP [address] [address] Stage 3b chronic kidney disease (HCC); Hypertension; Anemia in chronic kidney disease; Hypo-osmolality and hyponatremia; Chronic metabolic acidosis; Vitamin D deficiency, not otherwise specified 08/08/2025 9:00 AM EST Office Visit [facility] [address] [address] Judie Quezada ARNP [address] [address] documented as of this encounter Visit Diagnoses Not on filedocumented in this encounter Care Teams Lacquer Spray Booth Operator Relationship Specialty Start Date End Date Clara Rowan MD [address] [place] [address] PCP - General Internal Medicine 05/19/23 documented as of this encounter
--- OUTSIDE RECORDS SUMMARY | 2025-06-21 11:16 | XMS_ITS | Clinical Summary ---
Author Organization [address] [facility] Address [address] [place] [address] Phone Care Team Providers Care Imaging Manager Name Role Phone Bakari Valdes MD Primary Care Provider [phone] Encounters Date Type Department Care Team Description 04/15/[address] [facility] [address] [place] [address] Bakari Valdes MD Anemia, unspecified 04/08/[address] [facility] [address] [place] [address] Bakari Valdes MD Anemia, unspecified [...] nts (1 - 1-dose 75+ series) 2021 Depression Screening 08/29/2024 Falls Risk Assessment 04/08/2025 Hepatitis C Screening 04/08/2025 Osteoporosis Screening (Bone Density Screening) 04/08/2025 Social Influencers of Health Screening 04/08/2025 COVID-19 Vaccine (1 - 2023-2 5 season) 2025 Influenza Vaccine (#1) 2025 HIB Vaccines Aged [...] K/mcL LAB HEMETOLOGY METHOD 04/09/2025 9:43 AM [facility] RBC 3.10(L) 3.80 - 4.80 M/mcL LAB HEMETOLOGY METHOD 04/09/2025 9:43 AM [facility] Hemoglobin 10.3(L) 11.5 - 16.0 g/dL LAB HEMETOLOGY METHOD 04/09/2025 9:43 AM [facility] Hematocrit 31.7(L) 35.0 - 47.0 % LAB HEMETOLOGY METHOD 04/09/2025 9:43 AM [facility] MCV 102.6(H) 79.0 - 98.0 FL LAB HEMETOLOGY METHOD 04/09/2025 9:43 AM [facility] MCH 33.3(H) 27.0 - 32.0 pcg LAB HEMETOLOGY METHOD 04/09/2025 9:43 AM EDT [facility] MCHC 32.5 32.0 - 37.0 g/dL LAB HEMETOLOGY METHOD 04/09/2025 9:43 AM EDT [facility] RDW 14.8 11.0 - 15.0 % LAB HEMETOLOGY METHOD 04/09/2025 9:43 AM EDT [facility] Platelets 232 130 - 400 K/mcL LAB HEMETOLOGY METHOD 04/09/2025 9:43 AM EDT [facility] MPV 9.5 7.0 - 11.0 FL LAB HEMETOLOGY METHOD 04/09/2025 9:43 AM EDT [facility] NRBC 0.0 <1.0 % LAB HEMETOLOGY METHOD 04/09/2025 9:43 AM EDT [facility] NRBC Absolute 0.00 <0.10 K/mcL LAB HEMETOLOGY METHOD 04/09/2025 9:43 AM EDT [facility] Blood Venous blood specimen / Unknown Venipuncture / Unknown 04/09/2025 7:19 AM EDT 04/09/2025 8:47 AM EDT Bakari Valdes MD LAB BLOOD ORDERABLES Final Result [facility] [address] [place] [address], * (ABNORMAL) Comprehensive metabolic panel (04/09/2025 7:19 AM EDT) Sodium 134 133 - 145 mmol/L LAB CHEMISTRY METHOD 04/09/2025 10:24 AM EDT [facility] Potassium 4.7 3.5 - 5.5 mmol/L LAB CHEMISTRY METHOD 04/09/2025 10:24 AM [facility] Chloride 99 96 - 110 mmol/L LAB CHEMISTRY METHOD 04/09/2025 10:24 AM [facility] CO2 28 21 - 32 mmol/L LAB CHEMISTRY METHOD 04/09/2025 10:24 AM [facility] Anion Gap 7 3 - 11 LAB CHEMISTRY METHOD 04/09/2025 10:24 AM [facility] Glucose 78 70 - 100 mg/dL LAB CHEMISTRY METHOD 04/09/2025 10:24 AM [facility] BUN 20 5 - 25 mg/dL LAB CHEMISTRY METHOD 04/09/2025 10:24 AM [facility] Creatinine 1.20(H) 0.50 - 1.10 mg/dL LAB CHEMISTRY METHOD 04/09/2025 10:24 AM [facility] eGFR 46(L) >=60 mL/min/1. 73m2 LAB CHEMISTRY METHOD 04/09/2025 10:24 AM [facility] Comment:Calculation based on the Chronic Kidney Disease Epidemiology Collaboration (CKD-EPI) equation refit without adjustment for race. BUN/Creatinine Ratio 16.7 LAB CHEMISTRY METHOD 04/09/2025 10:24 AM [facility] Calcium 9.1 8.5 - 10.5 mg/dL LAB CHEMISTRY METHOD 04/09/2025 10:24 AM [facility] AST (SGOT) 44(H) 10 - 42 unit/L LAB CHEMISTRY METHOD 04/09/2025 10:24 AM [facility] ALT (SGPT) 41 10 - 60 unit/L LAB CHEMISTRY METHOD 04/09/2025 10:24 AM [facility] Alkaline Phosphatase 72 42 - 121 unit/L LAB CHEMISTRY METHOD 04/09/2025 10:24 AM [facility] Total Protein 6.0 6.0 - 8.0 g/dL LAB CHEMISTRY METHOD 04/09/2025 10:24 AM EDT [facility] Albumin 3.6 3.2 - 5.0 g/dL LAB CHEMISTRY METHOD 04/09/2025 10:24 AM EDT [facility] Total Bilirubin 0.5 0.0 - 1.4 mg/dL LAB CHEMISTRY METHOD 04/09/2025 10:24 AM EDT [facility] Blood Venous blood specimen / Unknown Venipuncture / Unknown 04/09/2025 7:19 AM EDT 04/09/2025 8:47 AM EDT us Bakari Valdes MD LAB BLOOD ORDERABLES Final Result [facility] [address] [place] [address], from Last 3 Months Insurance [facility] Care Teams Imaging Manager Relationship Specialty Start Date End Date Bakari Valdes MD [address] [place] [address] [facility] [place], [place] PCP - General Internal Medicine 04/08/25
[2025-06-21 13:20] LABS: MANUAL DIFF FLAG NO
[2025-06-21 13:37] LABS: Hematocrit 31.7 % (37.0-47.0); Hemoglobin 9.9 g/dl (12.0-16.0); Imm Gran Abs Auto 0.10 X10*3/uL (0.00-0.03); Imm Gran Pct Auto 1.0 % (0.0-0.4); Lymphocytes Absolute Auto 2.2 X10*3/uL (1.2-4.9); Mean Corpuscular HGB Conc 31.2 g/dl (31.0-35.0); Mean Corpuscular Hemoglobin 31.5 pg (27.0-33.0); Mean Corpuscular Volume 101.0 fL (80.0-98.0); NRBC Abs Auto 0.000 X10*3/uL (0.0-0.012); NRBC Pct Auto 0.0 /100WBC (0.0-0.2); Platelet Count 396 X10*3/uL (160-400); Red Blood Count 3.14 X10*6/uL (4.20-5.50); White Blood Count 10.0 X10*3/uL (4.8-10.8)
[2025-06-21 14:26] LABS: Alanine Aminotransferase 6 U/L (0-31); Albumin Level 4.3 g/dL (3.5-5.0); Alkaline Phosphatase 79 U/L (39-117); Anion Gap 11 (12-20); Aspartate Amino Transferase 26 U/L (5-31); Blood Urea Nitrogen 15 mg/dL (9-16); Calcium 9.6 mg/dL (8.4-10.2); Carbon Dioxide 27 mmol/L (22-29); Chloride 107 mmol/L (96-108); Estimated Glomerular Filt Rate 37; Potassium 4.2 mmol/L (3.3-5.1); Sodium 141 mmol/L (135-145); Total Protein 7.1 g/dL (6.5-8.0)
[2025-06-21 15:12] LABS: Vitamin B12 547 pg/mL (200-900)
== END 2025-06-21 10:01 | disposition home or self-care (01) ==
LOC: HO.HMGCLDS 10:00
PROVIDERS: PCP Internal Medicine; Visit Provider Internal Medicine
DX: E87.1 Hypo-osmolality and hyponatremia (principal); E53.8 Deficiency of other specified B group vitamins; N28.9 Disorder of kidney and ureter, unspecified; E55.9 Vitamin D deficiency, unspecified; E03.8 Other specified hypothyroidism; R73.01 Impaired fasting glucose; I10 Essential (primary) hypertension; Z09 Encounter for follow-up examination after completed treatment for conditions other than malignant neoplasm
CPT/HCPCS: 36415; 80053; 82607; 84443; 85025

== ENCOUNTER 2025-08-06 08:35 | Outpatient (AMB) | payer MEDICARE, SELFPAY ==
--- NOTE | 2025-08-06 09:26 | A.OFFVIS_ITS ---
Intake Intake Visit Reasons: ALECIA G4039- see comments Allergies No Known Allergies Allergy (Verified 08/06/25 09:29) Medication List - Last Reconciled 08/06/25 by Clara Rowan MD ascorbic acid (vitamin C) 500 mg PO DAILY aspirin (Adult Aspirin Regimen) 81 mg PO DAILY calcium 1,200 mg PO DAILY cholecalciferol (vitamin D3) 50 mcg PO DAILY cyanocobalamin (vitamin B-12) 1,000 mcg PO .qod 90 days levothyroxine 75 mcg PO DAILY losartan 100 mg PO DAILY nifedipine ER 30 mg PO DAILY simvastatin 20 mg PO QPM 90 days sodium bicarbonate 650 mg PO BID Do you need a note to return to daycare/school/sports/work: No HPI ALECIA G4039- see comments HPI Details She had a hemoglobin of 9.9 June 21 she was referred to hematology ,she has appointment coming up on 26 of August and she is going to have labs repeated on 15 of August. Blood pressure is stable ranging anywhere from 145 systolic to 130? Patient have an appointment coming up with kidney specialist. 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 She would like to see a paint laboratory technician at [facility], we will assist with that She also tells me that she's left-handed and her left thumb is now locking up. She will talk to pain management about that as well. Healthcare proxy and molst forms are up-to-date. Physically there is no change. Patient is able to stand up but need assistance of holding something, using cane to walk, balance is not that stable. She is still driving. Only medication from PCP office is Levothyroxine and Simvastatin Patient will have a six month follow-up appointment? HPI Comments History of Present Illness Details AWV Medical/social history reviewed Past medical history reviewed [place] of care / care team list updated Surgical/ hospitalization history reviewed Current medications including OTC and supplements reviewed Family history reviewed Tobacco controlled form updated Alcohol use form updated Illicit drug use in social history reviewed Current diagnosis of depression ?screening updated Appropriate PHQ 2/PHQ-9 completed . Vital signs reviewed Alcohol tobacco drug use reviewed and discussed . MMSE completed . ? Fall risk: ?Assessed Fall history: ?None Have you had any falls with injury in the past year?? No Have you had 2 or more falls in the past year?? No Fall risk assessment completed Home safety discussed with the patient Functional ability assessed and discussed and documented Activities of daily living reviewed and appropriate actions taken . HRA filled out by the patient and reviewed by provider and scanned . Appropriate written screening schedule established . Any health advise needed provided . Advance care planning discussed with the patient , necessary paperwork filled Examination IPPE/AWE: Balance able to walk with the help of cane Romberg failed Tandem walk failed walk-in turn failed rise from sit to stand failed . ?Hearing ?whisper test failed . Medication list reviewed, patient is stable on medications All other providers patient is seeing discussed and noted . [facility] Medical History Hypothyroid HTN (hypertension) Surgical History History of right hip replacement Hx of endarterectomy Hx of carpal tunnel repair Hx of cholecystectomy Hx of tubal ligation Hx of tonsillectomy Family History Family/Other Melanoma Brother Prostate cancer Maternal Grandmother Diabetes CHF (congestive heart failure) Mother CHF (congestive heart failure) Family/Other Ulcerative colitis Social History Housing: Condominium Alcohol intake: current Alcohol intake frequency: 0-2 drinks per day Alcohol type: hard liquor Patient Tobacco Use Status: Never used Tobacco e-Cigarette/Vaping Use: Never Used Second Hand Smoke Exposure: No service: No Current occupational status: retired 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 Cognitive needs: No Hearing needs: No Vision needs: Yes Questionnaire Medicare Wellness Checkup [age] What gender do you identify with?: female During the past 4 weeks, how much have you been bothered by emotional problems such as feeling anxious, depressed, irritable, sad or downhearted, and blue?: not at all During the past 4 weeks, has your physical & emotional health limited your social activities with family, friends, neighbors, or groups?: not at all During the past 4 weeks, how much bodily pain have you generally had?: very mild pain During the past 4 weeks, was someone available to help you if you needed & wanted help?: yes, as much as I wanted During the past 4 weeks, what was the hardest physical activity you could do for at least 2 minutes?: heavy Can you get to places out of walking distance without help? (For eg., can you travel alone on buses, taxis or drive your car?): Yes Can you go shopping for groceries or clothes without someone's help?: Yes Can you prepare your own meals?: Yes Can you do your housework without help?: Yes Because of any health problems, do you need the help of another person with your personal care needs such as eating, bathing, dressing or getting around the house?: No Can you handle your own money without help?: Yes During the past 4 weeks, how would you rate your health in general?: good During the past 4 weeks how have things been going for you?: pretty well Are you having difficulties driving your car?: no Do you always fasten your seat belt when you are in a car?: yes, usually During past 4 weeks, have you been bothered by the following: never: Falling or dizzy when standing up, Sexual problems?, Trouble eating well?, Teeth or denture problems?, Problems using the telephone? and Tiredness or fatigue? Have you fallen 2 or more times in the past year?: No Are you afraid of falling?: No Are you a smoker?: no During the past 4 weeks, how many drinks of wine, beer, or other alcoholic beverages did you have?: 2-5 drinks per week Do you exercise for about 20 minutes 3 or more times a week?: yes, some of the time Have you been given information to help with the following?: yes: Hazards in your house that might hurt you? and yes: Keeping track of your medications? How often do you have trouble taking medicines the way you have been told to take them?: I always take medicine as prescribed How confident are you that you can control & manage most of your health problems?: very confident What is your race?: White Mini Mental State Exam (MMSE) Orientation What is the (year) (season) (date) (day) (month)?: year, season, date, day and month Where are we (state) (county) (town or city) (hospital) (floor)?: state, county, town or city, hospital/clinic and floor Score Score: 10 Activity of Daily Living Bathing - sponge bath, tub bath or shower: receives no assistance (gets in/out by self, if usual bathing means Dressing - getting clothes from closets & drawers, including inner/outer garments & fasteners.: gets clothes & gets completely dressed without help Toileting - going to the 'toilet room' for urine/bowel elimination & cleaning self/arranging clothes: goes to toilet room, cleans self, arranges clothes without help Transfer: moves in & out of bed and chair without help (may use support object) Continence: controls urination/bowel movements completely by self Feeding: feeds self without help Total Score: 0 Information obtained from: patient Using telephone: independent Traveling: independent Shopping: independent Preparing meals: independent Housework: needs assistance Taking medicine: independent Managing money: independent PHQ-9 Over the last 2 weeks, how often have you been bothered by any of the following problems? 1. Little interest or pleasure in doing things: not at all 2. Feeling down, depressed, or hopeless: not at all 3. Trouble falling or staying asleep, or sleeping too much: not at all 4. Feeling tired or having little energy: several days 5. Poor appetite or overeating: not at all 6. Feeling bad about yourself - or that you are a failure or have let yourself or your family down: not at all 7. Trouble concentrating on things, such as reading the newspaper or watching television: not at all 8. Moving or speaking so slowly that other people could have noticed. Or the opposite - being so fidgety or restless that you have been moving around a lot more than usual: several days 9. Thoughts that you would be better off or of hurting yourself in some way: not at all Total score: 2 Depression Screening Interpretation: Negative Depression Screening Done: Yes 08305 - PHQ-9 Billing: Yes Source: Developed by Drs. Drake Alex, Day Marion, Yariel Jeff and colleagues, with an educational viral from [employer]. Review of Systems Const Denies chills and Denies fever(s) ENT Denies epistaxis and Denies nasal discharge Card Denies chest pain Resp Denies chest congestion, Denies cough and Denies hemoptysis GI Denies diarrhea and Denies nausea Skin/Breast Denies rash Neuro Reports no additional complaints Psych Reports no additional complaints Endo Reports no additional complaints Assessment & Plan Assessment & Plan (1) Medicare annual wellness visit, subsequent: Code(s): Z00.00 - Encounter for general adult medical examination without abnormal findings (2) Pain in thumb joint with movement of left hand: Code(s): M25.542 - Pain in joints of left hand (3) Lumbar back pain: Code(s): M54.50 - Low back pain, unspecified (4) Low hemoglobin: Code(s): D64.9 - Anemia, unspecified (5) Nephropathy: Code(s): N28.9 - Disorder of kidney and ureter, unspecified (6) Other specified hypothyroidism: Code(s): E03.8 - Other specified hypothyroidism (7) Impaired fasting blood sugar: Code(s): R73.01 - Impaired fasting glucose (8) Lipid disorder: Code(s): E78.9 - Disorder of lipoprotein metabolism, unspecified (9) Hypertension, essential: Code(s): I10 - Essential (primary) hypertension Plan She had a hemoglobin of 9.9 June 21 she was referred to hematology ,she has appointment coming up on 26 of August and she is going to have labs repeated on 15 of August. Blood pressure is stable ranging anywhere from 145 systolic to 130? Patient have an appointment coming up with kidney specialist. 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 She would like to see a paint laboratory technician at [facility], we will assist with that She also tells me that she's left-handed and her left thumb is now locking up. She will talk to pain management about that as well. Healthcare proxy and molst forms are up-to-date. Physically there is no change. Patient is able to stand up but need assistance of holding something, using cane to walk, balance is not that stable. She is still driving. Only medication from PCP office is Levothyroxine and Simvastatin Patient will have a six month follow-up appointment? Orders: Referrals Pain Management Referral M25.542 - Pain in joints of left hand, M54.50 - Low back pain, unspecified Quality Reporting (2019) Depression/Bipolar (159/160/161/177) PHQ-9: Total score: 2 Telehealth Telehealth Telehealth Platform: Trudev Location of provider rendering services: practice address Location of patient: address on file Patient Identification confirmed using: Name, : Yes Telehealth method: video Patient verbally consented to treatment: Yes Patient verbally consented to billing insurance company: Yes Patient informed of any privacy concerns related to visit: Yes Minutes spent on Phone/Video with Pt.: 20 Coding Level of Care Code Medicare Subsequent (G0439) Est Pt Level 3 (14326) Diagnoses Medicare annual wellness visit, subsequent Z00.00 Pain in thumb joint with movement of left hand M25.542 Lumbar back pain M54.50 Low hemoglobin D64.9 Nephropathy N28.9 Other specified hypothyroidism E03.8 Impaired fasting blood sugar R73.01 Lipid disorder E78.9 Hypertension, essential I10 CPT Codes Advance Care Planning - Advance Care Planning discussion: On file, no changes ([id number]) Advance Care Planning - Time spent: 1-15 minutes, on File ([id number]) Additional Codes PHQ-9 - 61139 - PHQ-9 Billing: Yes ([id number]) Advance Care Planning Advance Care Planning discussion: On file, no changes Forms completed: Health Care Proxy and MOLST Time spent: 1-15 minutes, on File
== END 2025-08-06 12:37 | disposition home or self-care (01) ==
PROVIDERS: PCP Internal Medicine; Visit Provider Internal Medicine
DX: Z00.00 Encounter for general adult medical examination without abnormal findings (principal); M25.542 Pain in joints of left hand; M54.50 Low back pain, unspecified; I10 Essential (primary) hypertension; D64.9 Anemia, unspecified; N28.9 Disorder of kidney and ureter, unspecified; E03.8 Other specified hypothyroidism; R73.01 Impaired fasting glucose; E78.9 Disorder of lipoprotein metabolism, unspecified

== ENCOUNTER → 2025-08-06 08:35 | Outpatient (BNVA) | payer MEDICARE, SELFPAY | PROVIDERS: PCP Internal Medicine; Visit Provider Internal Medicine | DX: Z00.00 Encounter for general adult medical examination without abnormal findings (principal); M47.816 Spondylosis without myelopathy or radiculopathy, lumbar region; M25.542 Pain in joints of left hand; M54.50 Low back pain, unspecified; D64.9 Anemia, unspecified; N28.9 Disorder of kidney and ureter, unspecified; E03.8 Other specified hypothyroidism; R73.01 Impaired fasting glucose; E78.9 Disorder of lipoprotein metabolism, unspecified; I10 Essential (primary) hypertension | CPT/HCPCS: 96127 ==

== ENCOUNTER 2025-08-27 09:50 | Outpatient (AMB) | payer MEDICARE, SELFPAY ==
--- NOTE | 2025-08-27 09:51 | A.OFFVIS_ITS ---
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 She also reports chronic neck pain. Her back pain is localized and does not radiate to her legs, and she denies associated numbness or tingling. She feels her back is weak, which limits her ability to walk long distances. A lumbar x-ray in April 2023 showed advanced arthritis, bone spurs, and degenerative disc disease. She has a history of a couple of injections for her back, including at [facility] and [facility]. She has tried Tylenol for pain, but Aleve was never effective. Her medical history is significant for osteoporosis, which contraindicates steroid injections near the spine, severe arthritis in her left hip as of 2022, and stage 3 chronic kidney disease. Surgical history includes a right hip replacement five years ago and bilateral carpal tunnel surgeries in the early . She also reports a new issue of a locked left thumb since . 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 She does not smoke or consume alcohol. She uses a cane to walk and is active at home but does not perform formal exercises due to a lack of energy, family obligations and increasing pain. Pain Description - Location: Pain is localized to the low back. - Associated Symptoms: The patient experiences a feeling of weakness in her back and has chronic neck pain. - Radiation: The pain does not radiate to her legs, and there is no numbness or tingling. - Exacerbating factors: Pain can be worsened by sitting upright, cooking, walking, getting up from a chair, movement in general, and bending backward. - Impact on function: Walking long distances is limited due to back pain and weakness. - Other pain: Reports new onset of left thumb pain since , noting it is totally locked up. Pain Management - Affect: The patient reports being under a lot of stress as she is the 21/03 on- call caregiver for her terminally ill . - Analgesia: She uses only Tylenol as needed for pain. - Adverse Effects: She avoids Aleve and other anti-inflammatory medications due to her stage 3 kidney disease. - Activities of Daily Living: Her back pain and weakness limit her ability to walk long distances. - She does not have time for physical therapy due to her caregiving responsibilities. - Aberrant Drug Related Behaviors: The patient denies any smoking or alcohol use. Oswestry Low Back Pain Disability Score=16 [facility] Medical History Hypothyroid HTN (hypertension) Surgical History History of right hip replacement Hx of endarterectomy Hx of carpal tunnel repair Hx of cholecystectomy Hx of tubal ligation Hx of tonsillectomy Family History Family/Other Melanoma Brother Prostate cancer Maternal Grandmother Diabetes CHF (congestive heart failure) Mother CHF (congestive heart failure) Family/Other Ulcerative colitis Social History Housing: Condominium Alcohol intake: current Alcohol intake frequency: 0-2 drinks per day Alcohol type: hard liquor Patient Tobacco Use Status: Never used Tobacco e-Cigarette/Vaping Use: Never Used Second Hand Smoke Exposure: No service: No Current occupational status: retired 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 Cognitive needs: No Hearing needs: No Vision needs: Yes Review of Systems Narrative - Musculoskeletal: Reports chronic low back pain, chronic neck pain, and new left thumb pain described as locked. - Reports feeling of back weakness that limits her walking. - Denies radiation of pain into the legs, bladder or bowel dysfunction or saddle anesthesia. - Neurological: Denies numbness and tingling in the legs. - Denies smoking and alcohol use. - Psychiatric: Reports being under a lot of stress. Const All systems reviewed & are unremarkable except as noted in HPI and below Physical Exam Vital Signs: Last Vital Signs Pulse 95 08/27/25 09:55 BP 123/59 L 08/27/25 09:55 Pulse Ox 98 08/27/25 09:55 Oxygen Delivery Method Room Air 08/27/25 09:55 BMI result Body Mass Index 23.4 General: Appears afebrile. Alert and oriented. Mood and affect appropriate. Follows and participates in conversation appropriately. Respiratory effort is unlabored. No cough. Able to transition from sit to stand unassisted. Uses cane with ambulation. Ambulates with bilaterally normal heel strike and toe off. Antalgic gait with kyphotic posture. General: Yes no CVA tenderness Back/Spine/Pelvis Other: Limited lumbar ROM due to pain. Lumbar extension and axial rotations reproduce moderate pain. Lumbar flexion is limited and reproduces mild pain. No midline TTP in cervical, thoracic or lumbar regions. Demonstrates 5/5 strength of quadriceps bilaterally as well as flexion/dorsiflexion of bilateral feet against resistance. 2+ pedal pulses bilaterally. Straight leg rise with dorsiflexion negative bilaterally. +2 patellar and achilles reflexes bilaterally. Facet loading test positive bilaterally. Alexys?s and Stinchfield tests are negative bilaterally. No groin pain with I/E hip rotations. Valsalva maneuver negative. Back: no CVA tenderness Cervical Spine: loss of normal cervical lordosis, cervical muscular tenderness, pain with cervical ROM, No Cervical spine tenderness and No step off deformity Thoracic/Lumbar Spine: thoracic and lumbar spine normal to inspection, No Thoracic/lumbar spine scar(s), Lasegue's sign negative, straight leg raise negative bilaterally, pain with thoraco-lumbar ROM, thoraco-lumbar ROM limited, No thoracic spinal tenderness and No lumbar spinal tenderness Sacroiliac joints: bilaterally nontender Extrem General: Yes capillary refill normal, Yes no clubbing, cyanosis or edema and Yes no calf tenderness Results Reviewed Results Reviewed: XR LUMBOSACRAL SPINE 05/06/23 CLINICAL INFORMATION: Reason for Exam M54.50 - Low back pain, unspecified COMPARISON: Lumbar spine radiographs 09/18/2019 TECHNIQUE: 3 views of the lumbar spine FINDINGS: 5 nonrib-bearing lumbar-type vertebral bodies. Vertebral body heights are maintained. Dextroconvex curvature of the lumbar spine. Grade 1 retrolisthesis of L1 on L2 and L2 on L3 similar to prior. Advanced multilevel degenerative disc disease with loss of disc space height and facet arthropathy, similar to prior. Atherosclerosis of the abdominal aorta. Right upper quadrant cholecystectomy clips. Partially measuring hip arthroplasty. IMPRESSION: * Advanced spondylosis of the lumbar spine, as above detailed. 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 XR DEXA axial skeleton 07/19/23 Osteoporosis based on the lowest T-score value of -4.6 in the total femur applying World Health Organization criteria. Assessment & Plan Assessment & Plan (1) Pain of left thumb: Code(s): M79.645 - Pain in left finger(s) Category: Medical (2) Trigger finger of left thumb: Code(s): M65.312 - Trigger thumb, left thumb Category: Medical (3) Chronic back pain: Code(s): M54.9 - Dorsalgia, unspecified; G89.29 - Other chronic pain Category: Medical (4) Lumbar degenerative disc disease: Code(s): M51.369 - Other intervertebral disc degeneration, lumbar region without mention of lumbar back pain or lower extremity pain Category: Medical (5) Lumbosacral spondylosis: Code(s): M47.817 - Spondylosis without myelopathy or radiculopathy, lumbosacral region Category: Medical Plan For the patient's chronic low back pain, which is multifactorial from advanced arthritis, degenerative disc disease, and bone spurs, the initial step will be diagnostic medial branch blocks. These injections will confirm if the facet joints are the primary pain generator. Based on the response to the blocks, a radiofrequency ablation (RFA) will be considered for longer-term pain relief of up to one year. Peripheral nerve stimulation was discussed as an alternative but RFA is favored given the patient's role as a caregiver. Schedule diagnostic bilateral L3-L4 DR L5 medial branch blocks with local and fluoroscopy. Expectations, risks and benefits were reviewed. Patient is aware she will be contacted to schedule this procedure. Informational pamphlets were provided to patient. An urgent referral will be placed to a Hand Specialist for evaluation and management of her painful and locked left thumb, as this clinic does not perform injections for this condition. Patient will continue using Tylenol for pain and to avoid NSAIDs, such as Aleve, due to her stage 3 chronic kidney disease. Physical therapy is deferred at this time due to the patient's lack of time and no improvement with formal course of PT in [id number]. No repeat imaging is necessary at present unless she develops new symptoms of instability which she declined at this time. All questions and concerns have been answered and patient agreed with the treatment plan. Follow up after injection and sooner as needed. Patient was informed and verbally consented to the use of an ambient scribe for clinic note documentation during this visit. Orders: Referrals Hand Surgery Referral M65.312 - Trigger thumb, left thumb, M79.645 - Pain in left finger(s) Coding Level of Care Code New Pt Level 4 (40911) Diagnoses Pain of left thumb M79.645 Trigger finger of left thumb M65.312 Chronic back pain M54.9; G89.29 Lumbar degenerative disc disease M51.369 Lumbosacral spondylosis M47.817
[2025-08-27 09:55] VITALS: BP 123/59; PULSE 95; O2SAT 98; BMI 23.4
--- OUTSIDE RECORDS SUMMARY | 2025-08-27 12:45 | XMS_ITS | Clinical Summary ---
Author Organization [address] [facility] Address [address] [place] [address] Phone Care Team Providers Care Hand Shoes Sewer Name Role Phone Bakari Valdes MD Primary Care Provider [phone] Social History Tobacco Use Types Packs/Day Years [...] 1-dose 75+ series) 2021 Depression Screening 08/29/2024 Cholesterol Screening (Lipid Panel) 04/08/2025 Falls Risk Assessment 04/08/2025 Hepatitis C Screening 04/08/2025 Osteoporosis Screening (Bone Density Screening) 04/08/2025 Social Influencers of Health Screening 04/08/2025 COVID-19 Vaccine (1 - 2024-2 6 season) 2025 Influenza Vaccine (#1) 2025 Hypertension/CHF/CAD Annual BMP Blood Test 04/09/2026 04/09/2025 HIB Vaccines Aged Out No longer eligi [...] EDT Anemia, unspecified from Last 3 Months or Most Recently Relevant to Health Maintenance Results * (ABNORMAL) Comprehensive metabolic panel (04/09/2025 7:19 AM EDT) Sodium 134 133 - 145 mmol/L LAB CHEMISTRY METHOD 04/09/2025 10:24 AM [facility] Potassium 4.7 3.5 - 5.5 mmol/L LAB CHEMISTRY METHOD 04/09/2025 10:24 AM [facility] Chloride 99 96 - 110 mmol/L LAB CHEMISTRY METHOD 04/09/2025 10:24 AM [facility] CO2 28 21 - 32 mmol/L LAB CHEMISTRY METHOD 04/09/2025 10:24 AM [facility] Anion Gap 7 3 - 11 LAB CHEMISTRY METHOD 04/09/2025 10:24 AM [facility] Glucose 78 70 - 100 mg/dL LAB CHEMISTRY METHOD 04/09/2025 10:24 AM [facility] BUN 20 5 - 25 mg/dL LAB CHEMISTRY METHOD 04/09/2025 10:24 AM [facility] Creatinine 1.20(H) 0.50 - 1.10 mg/dL LAB CHEMISTRY METHOD 04/09/2025 10:24 AM [facility] eGFR 46(L) >=60 mL/min/1. 73m2 LAB CHEMISTRY METHOD 04/09/2025 10:24 AM [facility] Comment:Calculation based on the Chronic Kidney Disease Epidemiology Collaboration (CKD-EPI) equation refit without adjustment for race. BUN/Creatinine Ratio 16.7 LAB CHEMISTRY METHOD 04/09/2025 10:24 AM [facility] Calcium 9.1 8.5 - 10.5 mg/dL LAB CHEMISTRY METHOD 04/09/2025 10:24 AM [facility] AST (SGOT) 44(H) 10 - 42 unit/L LAB CHEMISTRY METHOD 04/09/2025 10:24 AM [facility] ALT (SGPT) 41 10 - 60 unit/L LAB CHEMISTRY METHOD 04/09/2025 10:24 AM [facility] Alkaline Phosphatase 72 42 - 121 unit/L LAB CHEMISTRY METHOD 04/09/2025 10:24 AM [facility] Total Protein 6.0 6.0 - 8.0 g/dL LAB CHEMISTRY METHOD 04/09/2025 10:24 AM [facility] Albumin 3.6 3.2 - 5.0 g/dL LAB CHEMISTRY METHOD 04/09/2025 10:24 AM [facility] Total Bilirubin 0.5 0.0 - 1.4 mg/dL LAB CHEMISTRY METHOD 04/09/2025 10:24 AM [facility] Blood Venous blood specimen / Unknown Venipuncture / Unknown 04/09/2025 7:19 AM EDT 04/09/2025 8:47 AM EDT us Bakari Valdes MD LAB BLOOD ORDERABLES Final Result [facility] [address] [place] [address], from Last 3 Months or Most Recently Relevant to Health Maintenance Insurance [facility] Care Teams Hand Shoes Sewer Relationship Specialty Start Date End Date Bakari Valdes MD [address] [facility] [place], [place] PCP - General Internal Medicine 04/08/25
--- OUTSIDE RECORDS SUMMARY | 2025-08-27 12:45 | XMS_ITS | Patient Health Record ---
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 Primary Care Provider Drake De Leon [phone] Reason For Referral No Information Medications Medication SIG (Take, Route, Frequency, Duration) Notes Start Date End Date Status Calcium 600 MG Tablet 2tablet with meals Orally Once a day Active Aspir-81 81 MG Tablet Delayed Release 1 tablet Orally Once a day Active Levothyroxine Sodium 100 MCG Tablet 1 tablet on an empty stomach in the morning Orally Once a day Active Lisinopril 20 MG Tablet 1 tablet Orally Once a day Active Simvastatin 20 MG Tablet 1 tablet in the evening Orally Once a day Active Multi Vitamin/Minerals Tablet Orally Active Fish Oil 1000 MG Capsule 1 capsule Orall y Once a day Active Flaxseed Oil 1000 MG Capsule Orally Active Vitamin C 500 MG Tablet Chewable 1 tablet Orally Once a day Active Social History Social History Additional Details Category Social Info Options Details Miscellaneous: Marital status: 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 Section Notes: Nonsmoker; no sig alcohol Nonsmoker; no sig alcohol Problems Problem Type SNOMED Code ICD Code Onset Dates Problem Status W/U Status Risk Notes Problem Screening for malignant neoplasm of colon (279480633) Encounter for screening for malignant neoplasm of colon (Z12.11) Active confirmed Problem History of adenomatous polyp of colon (265650007) History of adenomatous polyp of colon (Z86.010) Active confirmed Problem Preprocedural examination (184762962232183) Preprocedural examination (Z01.818) Active confirmed Problem Long-term current use of antiplatelet drug (384041709248926) Long-term use of aspirin therapy (Z79.82) Active confirmed Plan Of Treatment Future Test Test Name Order Date COLONOSCOPY 01/31/2014 COLONOSCOPY 02/08/2018 Insurance Providers Payer Name Payer Address Payer Phone Subscriber Number Group Number Insured Name Patient Relationship to Insured Coverage Start Date Coverage End Date [facility] [address] [place] [address] [id number] THEO BOND Self - patient is the insured Medical (General) History Medical History History ICD Code Colonoscopy 07-15-2006--1 small tubular adenoma removed Hyperlipidemia Hypertension Hypothyroidism Denies GA,DM,CVA,Lung disease,renal dise ase Colonoscopy in 03/2014--> 1 c m flat tubular adenoma removed from 20cm, diverticulosis, internal hemorrhoids--- she also had a small tubular adenoma removed as well Surgical History Surgery Date(Month/Year) Tonsillectomy Carotid endarterectomy on the right 04/17 05 Tubal ligation 1978 Carpal tunnel release bilaterally Cholecystectomy
--- OUTSIDE RECORDS SUMMARY | 2025-08-27 12:45 | XMS_ITS | Clinical Summary ---
Author Organization [facility] Address [address] [address] Phone Care Team Providers Care Wordpress Developer Name Role Phone Clara Rowan MD Primary Care Provider [phone] Allergies No known active allergies Medications aspirin (Aspirin 81) 81 MG chewable tablet 1 (one) time each day Active acetaminophen (TYLENOL) 325 MG tablet Take 650 mg by mouth 09/05/19 21 Active Docusate Sodium (COLACE PO) Take 100 mg by mouth 09/05/19 21 Active levothyroxine (SYNTHROID, LEVOTHROID) 100 MCG tablet Take 88 mcg by mouth 1 (one) time each day 09/04/19 21 Active simvastatin (ZOCOR) 20 MG tablet 1 (one) time each day 09/04/19 21 Active Ascorbic Acid (Vitamin C) 500 MG capsule 1 (one) time each day Active Multiple Vitamin (multivitamin) tablet Take 1 tablet by mouth 1 (one) time each day Active furosemide (LASIX) 20 MG tablet Take 1 tablet (20 mg total) by mouth 2 (two) times a week 90 tablet 3 12/28/19 25 Active losartan (Cozaar) 100 MG tablet Take 1 tablet (100 mg total) by mouth 1 (one) time each day 90 tablet 3 07/08/20 25 026 Active NIFEdipine CC (ADALAT CC) 30 MG 24 hr tabletIndicatio ns:Stage 3b chronic kidney disease (HCC),Hypertens ion Take 1 tablet (30 mg total) by mouth 1 (one) time each day 90 tablet 1 08/08/20 25 026 Active sodium bicarbonate 650 MG tablet Take 1 tablet (650 mg total) by mouth 1 (one) time each day 90 tablet 1 08/08/20 25 026 Active Cholecalciferol (Vitamin D) 50 MCG (1999 UT) capsule Take 1 tablet by mouth 1 (one) time each day 30 capsule 5 08/15/20 25 Active Flaxseed, Linseed, (Flaxseed Oil) 1000 MG capsule 025 Discontinued(Me d List Maintenance) atenolol (TENORMIN) 50 MG tablet Take 50 mg by mouth 1 (one) time each day 07/22/20 23 025 Discontinued(Me d List Maintenance) Cholecalciferol (Vitamin D3) 50 MCG (1999 UT) tabletIndicatio ns:Vitamin D deficiency, not otherwise specified Take 2,000 Units by mouth 1 (one) time each day 30 tablet 11 08/09/20 24 025 atenolol (Tenormin) 25 MG tabletIndicatio ns:Hypertension Take 1 tablet (25 mg total) by mouth 1 (one) time each day To be taken with a 50 mg tablet for a total dose of 75 mg 90 tablet 3 02/08/20 25 025 Discontinued(Me d List Maintenance) NIFEdipine CC (ADALAT CC) 30 MG 24 hr tablet Take 30 mg by mouth 1 (one) time each day 07/19/20 25 025 Discontinued(Re order (does not appear on AVS)) sodium bicarbonate 650 MG tablet Take 650 mg by mouth in the morning and 650 mg in the evening. 025 Discontinued Cholecalciferol (Vitamin D) 50 MCG (1999 UT) capsule Take 1 tablet by mouth 1 (one) time each day 025 Discontinued(Re order (does not appear on AVS)) Active Problems Problem Noted Date Diagnosed Date Chronic metabolic acidosis 08/08/2025 Stage 3b chronic kidney disease 07/10/2024 Vitamin D deficiency, not otherwise specified Anemia in chronic kidney disease 07/10/2024 Hypo-osmolality and hyponatremia 07/25/2023 Hypertension 07/25/2023 Aspirin therapy finding 07/20/2023 07/20/20 Encounter for screening for malignant neoplasm o f colon 07/20/2023 07/20/2023 History of adenomatous polyp of colon 07/20/2023 07/20/2023 Preprocedural examination done 07/20/2023 1 09/19/2022 Encounters Date Type Department Care Team Description 08/19/2025 Refill [facility] [address] [address] Lorraine Del Rosario 08/16/2025 Refill [facility] [address] [address] Tonya Herzog MA 08/15/2025 Refill [facility] [address] [address] Tonya Herzog MA 08/15/2025 Refill [facility] [address] [address] Tonya Herzog MA 08/14/2025 Refill [facility] [address] [address] Lorraine Del Rosario 08/08/2025 9:00 AM EST Office Visit [facility] [address] [address] Judie Quezada ARNP Stage 3b chronic kidney disease (HCC) (Primary Dx); Hypertension; Anemia in chronic kidney disease; Chronic metabolic acidosis; Vitamin D deficiency, not otherwise specified; Hypo-osmolality and hyponatremia 08/01/2025 Orders Only [facility] [address] [address] Judie Quezada ARNP 07/21/2025 Orders Only [facility] [address] [address] Judie Quezada ARNP Stage 3b chronic kidney disease (HCC); Hypertension; Anemia in chronic kidney disease; Hypo-osmolality and hyponatremia; Chronic metabolic acidosis; Vitamin D deficiency, not otherwise specified 07/08/2025 Refill [facility] [address] [phone] Lorraine Del Rosario from Last 3 Months Family History Medical History Relation Comments Ulcerative colitis Father Heart failure Mother Relation Status Comments Father Mother Social History Tobacco Use Types Packs/Day Years Used Date Smoking Tobacco: Former Cigarettes Tobacco Cessation:Counseling Given: Not Answered Alcohol Use Standard Drinks/Week Comments Not Currently 0 (1 standard drink = 0.6 oz pur e alcohol) Comments Unknown Sex and Gender Information Value Date Recorded Sex Assigned at Not on file Legal Sex Female 11:15 AM EDT Gender Identity Not on file Sexual Orientation Not on file Last Filed Vital Signs Vital Sign Reading Time Taken Comments Blood Pressure 112/58 08/08/2025 9:06 AM EST Pulse 68 08/08/2025 9:06 AM EST Temperature - - Respiratory Rate - - Oxygen Saturation 97% 08/08/2025 9:06 AM EST Inhaled Oxygen Concentration - - Weight 60.8 kg (134 lb) 08/08/2025 9:06 AM EST Height - - Body Mass Index - - Plan of Treatment Upcoming Encounters Date Type Department Care Team (Late st Contact Info) Description 02/06/2026 9:00 AM EDT Office Visit [facility] [address] [phone] Judie Quezada ARNP [address] [phone] Health Maintenance Due Date Last Done Comments Pneumococcal Vaccine: 50+ Ye ars (1 of 2 - PCV) 1964 Influenza Vaccine (#1) 2025 Hepatitis B Vaccine Aged Out No longe r eligible based on patient's age to complete this topic Procedures Procedure Name Priority Date/Time Associated Diagnosis Comments SPECIMEN STATUS REPORT Routine 08/01/2025 11:14 AM EST CBC DIFF AMBIGUOUS DEFAULT - DO NOT USE Routine 08/01/2025 11:14 AM EST VITAMIN D 25 HYDROXY Routine 08/01/2025 11:14 AM EST Stage 3b chronic kidney disease (HCC) Hypertension Anemia in chronic kidney disease Hypo-osmolality and hyponatremia Chronic metabolic acidosis Vitamin D deficiency, not otherwise specified PROTEIN / CREATININE RATIO, URINE Routine 08/01/2025 11:14 AM EST Stage 3b chronic kidney disease (HCC) Hypertension Anemia in chronic kidney disease Hypo-osmolality and hyponatremia Chronic metabolic acidosis Vitamin D deficiency, not otherwise specified MAGNESIUM Routine 08/01/2025 11:14 AM EST Stage 3b chronic kidney disease (HCC) Hypertension Anemia in chronic kidney disease Hypo-osmolality and hyponatremia Chronic metabolic acidosis Vitamin D deficiency, not otherwise specified URINE ALBUMIN / CREATININE RATIO Routine 08/01/2025 11:14 AM EST Stage 3b chronic kidney disease (HCC) Hypertension Anemia in chronic kidney disease Hypo-osmolality and hyponatremia Chronic metabolic acidosis Vitamin D deficiency, not otherwise specified RENAL FUNCTION PANEL Routine 08/01/2025 11:14 AM EST Stage 3b chronic kidney disease (HCC) Hypertension Anemia in chronic kidney disease Hypo-osmolality and hyponatremia Chronic metabolic acidosis Vitamin D deficiency, not otherwise specified PTH, INTACT Routine 08/01/2025 11:14 AM EST Stage 3b chronic kidney disease (HCC) Hypertension Anemia in chronic kidney disease Hypo-osmolality and hyponatremia Chronic metabolic acidosis Vitamin D deficiency, not otherwise specified from Last 3 Months Results * SPECIMEN STATUS REPORT (08/01/2025 11:14 AM EST) Specimen Status Comment [facility] Comment: Justina Abbrev RP10 Default Ambgeovanni Abbrev RP10 Default A hand-written panel/profile was received from your office. In accordance with the [facility] Ambiguous Test Code Policy dated February 2003, we have completed your order by using the closest currently or formerly recognized AMA panel. We have assigned Renal Panel (10), Test Code #418488 to this request. If this is not the testing you wished to receive on this specimen, please contact the [facility] [employer] Client Inquiry/Technical Services Department to clarify the test order. We appreciate your business. 08/01/2025 11:1 4 AM EST 08/01/2025 Judie Quezada [facility] LAB BLOOD ORDERABLES Final Result [facility] [address] [place] [address] * (ABNORMAL) CBC Diff Ambiguous Default (08/01/2025 11:14 AM EST) WBC 7.1 3.4 - 10.8 x10E3/uL [facility] RBC 3.46(L) 3.77 - 5.28 x10E6/uL [facility] Hemoglobin 10.7(L) 11.1 - 15.9 g/dL [facility] Hematocrit 33.7(L) 34.0 - 46.6 % [facility] MCV 97 79 - 97 fL [facility] MCH 30.9 26.6 - 33.0 pg [facility] MCHC 31.8 31.5 - 35.7 g/dL [facility] RDW 12.2 11.7 - 15.4 % [facility] Platelets 334 150 - 450 x10E3/uL [facility] Neutrophils Relative 58 Not Estab. % [facility] Lymphocytes Relative 29 Not Estab. % [facility] Monocytes 9 Not Estab. % [facility] Eosinophils Relative 3 Not Estab. % [facility] Basophils Relative 1 Not Estab. % [facility] Neutrophils Absolute 4.1 1.4 - 7.0 x10E3/uL [facility] Lymphocytes Absolute 2.1 0.7 - 3.1 x10E3/uL [facility] Monocytes Absolute 0.6 0.1 - 0.9 x10E3/uL [facility] Eosinophils Absolute 0.2 0.0 - 0.4 x10E3/uL [facility] Basophils Absolute 0.1 0.0 - 0.2 x10E3/uL [facility] Immature Granulocytes 0 Not Estab. % [facility] Immature Grans (Absolute) 0.0 0.0 - 0.1 x10E3/uL [facility] Comment: A hand-written panel/profile was received from your office. In accordance with the [facility] Policy dated February 2003, we have assigned CBC with Differential/Platelet, Test Code #210411 to this request. If this is not the testing you wished to receive on this specimen, please contact the [employer] Client Inquiry/ Technical Services Department to clarify the test order. We appreciate your business. 08/01/2025 11:1 4 AM EST 08/01/2025 Judie Quezada [facility] LAB BLOOD ORDERABLES Final Result [facility] [address] [place] [address] * Urine Protein / creatinine ratio (08/01/2025 11:14 AM EST) Creatinine, Ur 244.4 Not Estab. mg/dL [facility] Protein, Ur 17.7 Not Estab. mg/dL [facility] Urine Protein/Creatin ine Ratio 72 0 - 200 mg/g creat [facility] Urine Urine specimen obtained by clean catch procedure / Unknown 08/01/2025 11:14 AM EST 08/01/2025 Judie Quezada [facility] URINE ORDERABLES Final Result [facility] [address] [place] [address] * Urine Albumin / Creatinine Ratio (08/01/2025 11:14 AM EST) Albumin, Urine 12.9 Not Estab. ug/mL [facility] Albumin/Creatin ine Ratio 5 0 - 29 mg/g creat [facility] Comment: Normal: 0 - 29 Moderately increased: 30 - 300 Severely increased: >300 Urine Urine specimen obtained by clean catch procedure / Unknown 08/01/2025 11:14 AM EST 08/01/2025 Judie Quezada [facility] URINE ORDERABLES Final Result Performing Organization Address City/[facility]/ZIP Co de Phone Number [facility] [address] [place] [address] * Vitamin D 25 hydroxy (08/01/2025 11:14 AM EST) Vitamin D, 25-OH, Total 38.2 30.0 - 100.0 ng/mL [facility] Comment: Vitamin D deficiency has been defined by the Shelley of Medicine and an Endocrine Society practice guideline as a level of serum 25-OH vitamin D less than 20 ng/mL (1,2). The Endocrine Society went on to further define vitamin D insufficiency as a level between 21 and 29 ng/mL (2). 1. IOM (Shelley of Medicine). 2010. Dietary reference intakes for calcium and D. [place]: The National Academies Press. 2. Carlota MF, You NC, Shiv SNOW, et al. Evaluation, treatment, and prevention of vitamin D deficiency: an Endocrine Society clinical practice guideline. JCEM. 2010; 96(7):1911-30. Blood Venous blood / Unknown 08/01/2025 11:14 AM EST 08/01/2025 Judie [facility] LAB BLOOD ORDERABLES Final Result [facility] [address] [place] [address] * PTH, intact (08/01/2025 11:14 AM EST) PTH 33 15 - 65 pg/mL [facility] Blood Venous blood / Unknown 08/01/2025 11:14 AM EST 08/01/2025 Judie [facility] LAB BLOOD ORDERABLES Final Result [facility] [address], [address] [place] [address] * Magnesium (08/01/2025 11:14 AM EST) Magnesium 2.0 1.6 - 2.3 mg/dL [facility] Blood Venous blood / Unknown 08/01/2025 11:14 AM EST 08/01/2025 Judie Quezada [facility] LAB BLOOD ORDERABLES Final Result [facility] [address], [address] [place] [address] * (ABNORMAL) Renal function panel (08/01/2025 11:14 AM EST) Glucose 102(H) 70 - 99 mg/dL [facility] BUN 16 8 - 27 mg/dL [facility] Creatinine 1.44(H) 0.57 - 1.00 mg/dL [facility] eGFR CKD-EPI CR 2020 37(L) >59 mL/min/1.7 3 [facility] BUN/Creatinine Ratio 11(L) 12 - 28 [facility] Sodium 135 134 - 144 mmol/L [facility] Potassium 4.8 3.5 - 5.2 mmol/L [facility] Chloride 100 96 - 106 mmol/L [facility] Bicarbonate (CO2) 23 20 - 29 mmol/L [facility] Calcium 9.4 8.7 - 10.3 mg/dL [facility] Albumin 4.1 3.8 - 4.8 g/dL [facility] Phosphorus 3.8 3.0 - 4.3 mg/dL [facility] Blood Venous blood / Unknown 08/01/2025 11:14 AM EST 08/01/2025 Judie Quezada [facility] LAB BLOOD ORDERABLES Final Result [facility] [address] [place] [address] from Last 3 Months Insurance [employer] [facility] [place] [employer] [facility] [place] Care Teams Wordpress Developer Relationship Specialty Start Date End Date Clara Rowan MD [address] [place] [address] PCP - General Internal Medicine 05/19/23
--- OUTSIDE RECORDS SUMMARY | 2025-08-27 12:45 | XMS_ITS | Encounter Summary ---
Author Organization [employer] Address [address] [place] [address] Care Team Providers Care Shellfish Weigher Name Role Phone Bakari Valdes MD Primary Care Provider [phone] Encounter Details Date Type Department Care Team (Late st Contact Info) Description 04/15/2025 Lab Requisition [facility] - Main Lab [address] [facility] [place] [address] Bakari Valdes MD [address] [place] [address] Anemia, unspecified Social History Tobacco Use Types [...] unspecified documented in this encounter Care Teams Shellfish Weigher Relationship Specialty Start Date End Date Bakari Valdes MD [address] [facility] [place], [place] PCP - General Internal Medicine 04/08/25 documented as of this encounter
--- OUTSIDE RECORDS SUMMARY | 2025-08-27 12:45 | XMS_ITS | Encounter Summary ---
Author Organization [employer] Address [address] [place] [address] Care Team Providers Care Combat Engineer Name Role Phone Bakari Valdes MD Primary Care Provider [phone] Encounter Details Date Type Department Care Team (Late st Contact Info) Description 04/08/2025 Lab Requisition [facility] - Main Lab [address] [facility] [place] [address] Bakari Valdes MD [address] [place] [id number] Anemia, unspecified Social History Tobacco Use Types [...] mmol/L LAB CHEMISTRY METHOD 04/09/2025 10:24 AM [facility] Potassium 4.7 3.5 - 5.5 mmol/L LAB CHEMISTRY METHOD 04/09/2025 10:24 AM [facility] Chloride 99 96 - 110 mmol/L LAB CHEMISTRY METHOD 04/09/2025 10:24 AM [facility] CO2 28 21 - 32 mmol/L LAB CHEMISTRY METHOD 04/09/2025 10:24 AM [facility] Anion Gap 7 3 - 11 LAB CHEMISTRY METHOD 04/09/2025 10:24 AM [facility] Glucose 78 70 - 100 mg/dL LAB CHEMISTRY METHOD 04/09/2025 10:24 AM [facility] BUN 20 5 - 25 mg/dL LAB CHEMISTRY METHOD 04/09/2025 10:24 AM [facility] Creatinine 1.20(H) 0.50 - 1.10 mg/dL LAB CHEMISTRY METHOD 04/09/2025 10:24 AM [facility] eGFR 46(L) >=60 mL/min/1. 73m2 LAB CHEMISTRY METHOD 04/09/2025 10:24 AM [facility] Comment:Calculation based on the Chronic Kidney Disease Epidemiology Collaboration (CKD-EPI) equation refit without adjustment for race. BUN/Creatinine Ratio 16.7 LAB CHEMISTRY METHOD 04/09/2025 10:24 AM [facility] Calcium 9.1 8.5 - 10.5 mg/dL LAB CHEMISTRY METHOD 04/09/2025 10:24 AM [facility] AST (SGOT) 44(H) 10 - 42 unit/L LAB CHEMISTRY METHOD 04/09/2025 10:24 AM [facility] ALT (SGPT) 41 10 - 60 unit/L LAB CHEMISTRY METHOD 04/09/2025 10:24 AM [facility] Alkaline Phosphatase 72 42 - 121 unit/L LAB CHEMISTRY METHOD 04/09/2025 10:24 AM [facility] Total Protein 6.0 6.0 - 8.0 g/dL LAB CHEMISTRY METHOD 04/09/2025 10:24 AM [facility] Albumin 3.6 3.2 - 5.0 g/dL LAB CHEMISTRY METHOD 04/09/2025 10:24 AM [facility] Total Bilirubin 0.5 0.0 - 1.4 mg/dL LAB CHEMISTRY METHOD 04/09/2025 10:24 AM [facility] Blood Venous blood specimen / Unknown Venipuncture / Unknown 04/09/2025 7:19 AM EDT 04/09/2025 8:47 AM EDT Bakari Valdes MD LAB BLOOD ORDERABLES Final Result [facility] [address] [place] [address], * (ABNORMAL) Complete blood count (04/09/2025 7:19 AM EDT) WBC 4.8 4.8 - 10.8 K/mcL LAB HEMETOLOGY METHOD 04/09/2025 9:43 AM [facility] RBC 3.10(L) 3.80 - 4.80 M/mcL LAB HEMETOLOGY METHOD 04/09/2025 9:43 AM [facility] Hemoglobin 10.3(L) 11.5 - 16.0 g/dL LAB HEMETOLOGY METHOD 04/09/2025 9:43 AM [facility] Hematocrit 31.7(L) 35.0 - 47.0 % LAB HEMETOLOGY METHOD 04/09/2025 9:43 AM [facility] MCV 102.6(H) 79.0 - 98.0 FL LAB HEMETOLOGY METHOD 04/09/2025 9:43 AM [facility] MCH 33.3(H) 27.0 - 32.0 pcg LAB HEMETOLOGY METHOD 04/09/2025 9:43 AM [facility] MCHC 32.5 32.0 - 37.0 g/dL LAB HEMETOLOGY METHOD 04/09/2025 9:43 AM EDT [facility] RDW 14.8 11.0 - 15.0 % LAB HEMETOLOGY METHOD 04/09/2025 9:43 AM EDT [facility] Platelets 232 130 - 400 K/mcL LAB HEMETOLOGY METHOD 04/09/2025 9:43 AM EDT [facility] MPV 9.5 7.0 - 11.0 FL LAB HEMETOLOGY METHOD 04/09/2025 9:43 AM EDT [facility] NRBC 0.0 <1.0 % LAB HEMETOLOGY METHOD 04/09/2025 9:43 AM EDT [facility] NRBC Absolute 0.00 <0.10 K/mcL LAB HEMETOLOGY METHOD 04/09/2025 9:43 AM EDT [facility] Blood Venous blood specimen / Unknown Venipuncture / Unknown 04/09/2025 7:19 AM EDT 04/09/2025 8:47 AM EDT Bakari Valdes MD LAB BLOOD ORDERABLES Final Result [facility] [address] [place] [address], documented in this encounter Visit Diagnoses Diagnosis Anemia, unspecified documented in this encounter Care Teams Combat Engineer Relationship Specialty Start Date End Date Bakari Valdes MD [address] [place], [place] [address] [place] [place] PCP - General Internal Medicine 04/08/25 documented as of this encounter
--- OUTSIDE RECORDS SUMMARY | 2025-08-27 12:45 | XMS_ITS | Encounter Summary ---
Author Organization [facility] Address [address] [address] Phone Care Team Providers Care Job Analyst Name Role Phone Clara Rowan MD Primary Care Provider [phone] Reason for Visit * Reason Onset Date Comments Med Refill 08/19/2025 Encounter Details Date Type Department Care Team (Late st Contact Info) Description 08/19/2025 Refill [facility] [address] [address] Lorraine Del Rosario [address] [address] Social History Tobacco Use Types Packs/Day Years Used Date Smoking Tobacco: Former Cigarettes Alcohol Use Standard Drinks/Week Comments Not Currently [...] Office Visit [facility] [address] [address] Judie Quezada ARNP [address] [address] documented as of this encounter Visit Diagnoses Not on filedocumented in this encounter Care Teams Job Analyst Relationship Specialty Start Date End Date Clara Rowan MD [facility] [place] [address] PCP - General Internal Medicine 05/19/23 documented as of this encounter
== END 2025-08-27 10:32 | disposition home or self-care (01) ==
LOC: HO.PMC 09:50
PROVIDERS: PCP Internal Medicine; Visit Provider Nurse Practitioner Family
DX: M79.645 Pain in left finger(s) (principal); M65.312 Trigger thumb, left thumb; M54.9 Dorsalgia, unspecified; G89.29 Other chronic pain; M51.369 Other intervertebral disc degeneration, lumbar region without mention of lumbar back pain or lower extremity pain; M47.817 Spondylosis without myelopathy or radiculopathy, lumbosacral region
CPT/HCPCS: 99204

== ENCOUNTER → 2025-08-27 09:50 | Outpatient (BNVA) | payer MEDICARE, SELFPAY | PROVIDERS: PCP Internal Medicine; Visit Provider Nurse Practitioner Family | DX: M51.369 Other intervertebral disc degeneration, lumbar region without mention of lumbar back pain or lower extremity pain (principal); M47.817 Spondylosis without myelopathy or radiculopathy, lumbosacral region; G89.29 Other chronic pain; M65.312 Trigger thumb, left thumb; I12.9 Hypertensive chronic kidney disease with stage 1 through stage 4 chronic kidney disease, or unspecified chronic kidney disease; N18.30 Chronic kidney disease, stage 3 unspecified; M79.645 Pain in left finger(s); Z79.891 Long term (current) use of opiate analgesic | CPT/HCPCS: 99202 ==